=== PATIENT | male | born 1950 | race Caucasian/White ===

== ENCOUNTER → 2018-11-12 | Outpatient (CLI) | payer MEDICARE ==
--- NOTE | 2018-11-14 08:02 | CTL ---
EXAMINATION TYPE: CT Low Dose Lung DATE OF EXAM ORDERED: 11/12/2018 COMPARISON: None HISTORY: . Low Dose CT Lung Screening CT DLP: [address] CTDI: 2.3 mGy IV CONTRAST USED: None. SCREENING VISIT: First visit COMPARISON: None. TECHNIQUE: Low dose computed tomography scan was performed through the chest at 1 millimeter thick se ctions and reconstructed images in the coronal plane at [address] DIAGNOSTIC QUALITY: Satisfactory FINDINGS: LUNG NODULES: Right lung: Subpleural nodule right lower lobe measuring 4.9 mm with an adjacent 3 mm nodule image 19 4. Right upper lobe nodules anteriorly on image 96 measuring 3.4 mm and 2.5 mm respectively. Pulmonar y nodule adjacent to the right upper lobe fibrotic change measuring 4.7 mm image 75. Left lung: Left perihilar nodule measuring 7.8 mm with adjacent focus of calcification image 147. Lef t upper lobe nodule measuring 4.3 mm image 157. Left lower lobe subpleural nodule measuring 3.7 mm 18 8. Left lower lobe pulmonary nodules solid measuring 4.6 mm image 205. Lingular nodule measuring 5.5 mm image 228. Left lower lobe pulmonary nodule measuring 3.8 mm image 244. LUNGS: COPD: Severity: Moderate Fibrosis: Severity: Fibrotic changes noted right upper lobe. Lymph nodes: None Other findings: None RIGHT PLEURAL SPACE: Effusion: None Calcification: None Thickening: None Pneumothorax: None LEFT PLEURAL SPACE: Effusion: None Calcification: None Thickening: None Pneumothorax: None HEART: Heart Size: Mildly enlarged Coronary calcification: Mild Pericardial effusion: None OTHER FINDINGS: Upper abdomen: No significant abnormality Bony thorax: Degenerative changes Supraclavicular region: No significant abnormalityOther: No significant abnormalityI IMPRESSION: 1. Multiple scattered nonspecific pulmonary nodules. COPD with mild right upper lobe fibrotic change. FOLLOW UP CT CHEST RECOMMENDATION: Six-month follow-up LDCT recommended.Smoking cessation recommended. CT LUNG RAD: LUNG RAD CATEGORY 3 probably benign. Short-term follow-up suggested; includes nodules with a low like lihood of becoming a clinically active cancer.
== END | disposition home or self-care (01) ==
LOC: RADCTMAIN 12:59
PROVIDERS: ATTEND Family Medicine
DX: J44.9 Chronic obstructive pulmonary disease, unspecified (principal); J84.10 Pulmonary fibrosis, unspecified; R91.8 Other nonspecific abnormal finding of lung field; Z87.891 Personal history of nicotine dependence

== ENCOUNTER → 2018-11-17 | Day surgery (SDC) | payer MEDICARE ==
[2018-11-15 16:15] VITALS: BMI 22.8
[~2018-11-17] MED LIST: LACTATED RINGERS 1,000 ML IV SCH; PROPOFOL 10 MG/ML 20 ML VIAL IV ONE
[2018-11-17 09:52] VITALS: RESP 18
--- NOTE | 2018-11-17 10:37 | P.PCN ---
Date of Procedure: 11/17/18 Procedure(s) Performed: BRIEF HISTORY: Patient is a 68-year-old pleasant male, scheduled for an elective colonoscopy as a part of evaluation of prior history of colon polyps. Last colonoscopy was 5 years ago. PROCEDURE PERFORMED: Colonoscopy with snare polypectomy. PREOPERATIVE DIAGNOSIS: History Of colon polyps. IV sedation per Anesthesia. PROCEDURE: After informed consent was obtained, the patient, was brought into the endoscopy unit. IV sedation was administered by Anesthesia under continuous monitoring. Digital rectal examination was normal. Initially the Olympus CF-160 flexible video colonoscope was then inserted in the rectum, gradually advanced into the cecum without any difficulty. Careful examination was performed as the scope was gradually being withdrawn. Ileocecal valve and the appendiceal orifice were visualized and appeared normal. Prep was excellent. Mucosa of the cecum, ascending colon, transverse colon, appeared normal. In the descending colon there was a 7-8 mm polyp that was removed by snare polypectomy. Rest of the descending colon, sigmoid colon, and rectum appeared normal. Retroflexion was performed in the rectum and no lesions were seen. The patient tolerated the procedure well. IMPRESSION: 7-8 mm descending colon polyp serous was snare polypectomy Rest of the colon appeared normal RECOMMENDATIONS: Findings of this examination were discussed with the patient as well as his family. He was advised to follow with the biopsy results. He can have a repeat surveillance colonoscopy in 5 years..
[2018-11-17 11:27] VITALS: BP 124/85; PULSE 92
== END ==
LOC: ORWHC2ENDO 08:40
PROVIDERS: ATTEND Internal Medicine Gastroenterology
DX: Z12.11 Encounter for screening for malignant neoplasm of colon (principal); Z86.010 Personal history of colon polyps; D12.4 Benign neoplasm of descending colon; J44.9 Chronic obstructive pulmonary disease, unspecified; E78.5 Hyperlipidemia, unspecified; H40.9 Unspecified glaucoma; Z87.891 Personal history of nicotine dependence; Z79.899 Other long term (current) drug therapy; Z97.2 Presence of dental prosthetic device (complete) (partial)
CPT/HCPCS: 45385; 88305; J2704

== ENCOUNTER → 2019-05-15 | Outpatient (CLI) | payer MEDICARE ==
--- NOTE | 2019-05-15 14:43 | CT ---
EXAMINATION TYPE: CT chest w con DATE OF EXAM: 05/15/2019 COMPARISON: November 12, 2018 HISTORY: Abnormal findings of the lung field CT DLP: 443 mGycm Automated exposure control for dose reduction was used. CONTRAST: CT scan of the chest is performed with IV Contrast, patient injected with 100 mL of Isovue 300. FINDINGS: LUNGS: Stable scattered bilateral pulmonary nodules. No new nodules identified. Approximately 4 5 nod ules are seen within the right lung measuring up to 4.8 mm. Approximately pulmonary nodules are seen within the left lung. Left perihilar nodule seen previously measuring 7.8 mm is not clearly reproduc ed at this time although adjacent calculus is noted. Fibrotic changes right upper lobe redemonstrated . Upper lobe emphysematous changes noted. MEDIASTINUM: There are no greater than 1 cm hilar or mediastinal lymph nodes. No pericardial effusi on is seen. Thoracic aorta is of normal caliber. The heart is not enlarged. UPPER ABDOMEN: No significant abnormality appreciated. OTHER: No additional significant abnormality is seen. IMPRESSION: 1. Scattered pulmonary nodules remain essentially unchanged although a 7.8 mm nodule left hilum is no t reproduced at this time. Follow-up study in one year is advised.
== END | disposition home or self-care (01) ==
LOC: RADCTMAIN 12:26
PROVIDERS: ATTEND Family Medicine
DX: R91.8 Other nonspecific abnormal finding of lung field (principal)
CPT/HCPCS: 82565; 84520; 71260; 36415; Q9967

== ENCOUNTER → 2021-09-30 | Outpatient (CLI) | payer MEDICARE ==
[2021-09-30 14:58] LABS: African American GFR (CKD) >90 (>60 ml/min/1.73 sqM); Blood Urea Nitrogen 20 mg/dL (9-20); Non-African American GFR(CKD) 87 (>60 ml/min/1.73 sqM)
--- NOTE | 2021-09-30 15:45 | CT ---
EXAMINATION TYPE: CT chest w con DATE OF EXAM: 09/30/2021 COMPARISON: 05/15/2019 HISTORY: Solitary pulmonary lung nodule CT DLP: 241.20 mGycm Automated exposure control for dose reduction was used. CONTRAST: CT scan of the chest is performed with IV Contrast, patient injected with 70 mL of Isovue 300. FINDINGS: LUNGS: 3 mm nodule right upper lobe image 2476. Adjacent 2 mm pulmonary nodule noted. Right middle lo be pulmonary nodules measuring 3 mm each image 40 of 76. 2.5 mm pulmonary nodule right lower lobe corie ge 45 of 76. 4 mm nodule along the right major fissure image 48 of 76. Within the left: There is a no dule within the left lower lobe which is subpleural in location measuring 3 mm image 46 of 76. 5 mm p ulmonary nodule left lower lobe image 49. 3 mm pulmonary nodule subpleural location left lower lobe l aterally image 56. Additional 3 mm pulmonary nodule left lower lobe posterior sulcus image 5776. Area of consolidation noted left lower lobe posterior sulcus measuring 2 cm. This could reflect inflammat ory or postinflammatory change. Short-term follow-up in 3 months is advised. Subpleural fibrotic arreola ge right upper lobe is unchanged. Scattered emphysematous changes are redemonstrated. MEDIASTINUM: There are no greater than 1 cm hilar or mediastinal lymph nodes. No pericardial effusi on is seen. Thoracic aorta is of normal caliber. The heart is not enlarged. UPPER ABDOMEN: No significant abnormality appreciated. OTHER: No additional significant abnormality is seen. IMPRESSION: 1. Persistent scattered pulmonary nodules most of which appear stable however there is a new area of nodular consolidation left lower lobe which may reflect an area of infiltrate or postinflammatory altagracia nge however short-term follow-up study in 3 months is advised.
== END | disposition home or self-care (01) ==
LOC: RADCTMAIN 14:06
PROVIDERS: ATTEND Family Medicine
DX: R91.8 Other nonspecific abnormal finding of lung field (principal)
CPT/HCPCS: 82565; 84520; 71260; 36415; Q9967

== ENCOUNTER → 2022-01-02 | Outpatient (CLI) | payer MEDICARE ==
[2022-01-02 09:46] LABS: African American GFR (CKD) >90 (>60 ml/min/1.73 sqM); Blood Urea Nitrogen 24 mg/dL (9-20); Non-African American GFR(CKD) 83 (>60 ml/min/1.73 sqM)
--- NOTE | 2022-01-02 10:24 | CT ---
EXAMINATION TYPE: CT chest w con DATE OF EXAM: 01/02/2022 COMPARISON: 09/30/2021 HISTORY: pulmonary nodule CT DLP: 192.2 mGycm Automated exposure control for dose reduction was used. TECHNIQUE: CT scan of the chest is performed with IV Contrast, patient injected with 100 mL of Isovue 370. MIP Images are created on CT scanner and reviewed. 3D reconstructed images are created on an independent workstation and reviewed. FINDINGS: LUNGS: Nodules: Right upper lobe 3 mm and 2 mm nodule stable. Right middle lobe nodule measuring 3 mm stable. 2.5 mm nodule right lower lobe stable. 4 mm nodule along the right major fissure stable. 3 mm subpleural nodule left lower lobe stable. 5 mm pulmonary nodule left lower lobe stable. 3 mm pulmonary nodule subpleural location left lower lobe laterally stable. 3 mm pulmonary nodule left lower lobe posterior sulcus is stable. Areas of subsegmental consolidation involving both lung bases are stable. No pleural effusion or pneu mothorax. Diffuse emphysematous changes noted. Mild central and basilar bronchiectasis.. Consolidatio n left lower lobe is increased in size measuring 3.2 cm versus 1.9 cm. MEDIASTINUM: There is a 1.4 cm short axis lymph node in the right hilum stable. No pericardial effu taj is seen. Mild atherosclerotic change aorta which is of normal caliber. Mild coronary artery calc ification left anterior descending artery. Small hiatal hernia. OTHER: Atrophic and degenerative changes spine. IMPRESSION: 1. Stable bilateral pulmonary nodules unchanged from prior exam. There is a stable pathologic lymph n ode right hilum measuring 1.4 cm short axis. 2. Persistent area of subsegmental consolidation left lower lobe greater than right appears increased in size measuring 3.2 cm versus 1.9 cm. Recommend PET scan.
== END | disposition home or self-care (01) ==
LOC: RADCTMAIN 09:00
PROVIDERS: ATTEND Family Medicine
DX: R91.8 Other nonspecific abnormal finding of lung field (principal); R06.00 Dyspnea, unspecified
CPT/HCPCS: 82565; 84520; 71260; 36415; Q9967

== ENCOUNTER → 2022-01-23 | Outpatient (CLI) | payer MEDICARE ==
--- NOTE | 2022-01-26 09:35 | PE ---
EXAMINATION TYPE: PET CT fusion skull to thigh DATE OF EXAM: 01/23/2022 CLINICAL INDICATION:Male, 72 years old with history of R91.8 abnormal findings lung field; TECHNIQUE: Following the intravenous administration of 11.0 mCi of F-18 FDG, whole body images are performed from the skull base to the midthigh. Images are reviewed on the computer in the coronal, a xial, and sagittal planes. Reconstructed rotating images are created on independent workstation and reviewed on the computer. A non-contrast CT is performed in conjunction with the PET scan. Glucose level 97 mg/dL COMPARISON: CT CT 01/02/2022, 09/30/2021, 05/15/2019, PET/CT None, FINDINGS: Mediastinal SUV mean is 1.2. Hepatic parenchyma SUV mean is 2.1. SKULL BASE AND NECK: No suspicious FDG activity. CHEST, MEDIASTINUM, AND HILAR REGION: No suspicious FDG activity. Area of concern within the left low er lung is somewhat wedge-shape of consolidation and does not demonstrate increased FDG activity abov e background levels. This area does appear larger than 09/30/2021. ABDOMEN AND PELVIS: No suspicious FDG activity. OSSEOUS STRUCTURES: No suspicious FDG activity. OTHER CT: Atherosclerosis of the arterial vasculature including coronary arteries. A moderate stool b urden throughout the colon. Scattered clonic diverticula. The prostate gland is enlarged measuring up to 4.8 cm. The bladder is nondistended.: IMPRESSION: 1. No suspicious FDG activity. 2. Left lower lobe wedge-shaped consolidation extending towards the pleural surface is minimal FDG a ctivity near background levels. An infectious/inflammatory process and/or atelectasis are favored giv en some opacified airways seen on prior CT chest, correlate for retained secretions and/or aspiration . Attention on follow-up imaging. 3. Scattered subcentimeter pulmonary nodules are below the sensitivity of PET/CT. Continued surveill ance with CT chest is recommended in 3 months.
== END | disposition home or self-care (01) ==
LOC: RADXRMAIN 06:48
PROVIDERS: ATTEND Family Medicine
DX: R91.8 Other nonspecific abnormal finding of lung field (principal)
CPT/HCPCS: 78815; A9552

== ENCOUNTER → 2022-04-23 | Outpatient (CLI) | payer MEDICARE ==
[2022-04-23 16:35] LABS: African American GFR (CKD) >90 (>60 ml/min/1.73 sqM); Blood Urea Nitrogen 12 mg/dL (9-20); Non-African American GFR(CKD) 79 (>60 ml/min/1.73 sqM)
--- NOTE | 2022-04-23 17:28 | CT ---
EXAMINATION TYPE: CT chest w con DATE OF EXAM: 04/23/2022 COMPARISON: Prior chest CT September 30, 2021 and older study May 15, 2019 HISTORY: f/u lung nodule CT DLP: 208.80 mGycm. Automated Exposure Control for Dose Reduction was Utilized. TECHNIQUE: CT scan of the thorax is performed following with IV Contrast, patient injected with 90 m L of Isovue 300. FINDINGS: LUNGS: Moderate underlying emphysematous changes are redemonstrated. Linear scarring anterior right u pper lung is again seen with slight interval progression from prior studies. There are areas of groun dglass opacity and organizing consolidation identified bilaterally there are areas of involvement in the right middle lobe and lingula and in the right lower lobe. Persistent groundglass opacities with reticulation in the posterior left lower lobe shows some improvement in the consolidation seen on arcenio or study. Small scattered nodules are redemonstrated. Largest measures 4 to 5 mm in the periphery of the left lower lobe axial image 44 not significantly changed from most recent CT. Some curvilinear pe ripheral consolidation in the inferior right upper lobe axial image 28 is new from prior study. Areas of reticulonodular increased opacity in the periphery of the right upper and middle lobes new from p rior study. No pleural effusion or pneumothorax is seen. Some peribronchial wall thickening is noted. MEDIASTINUM: There is stable enlarged right suprahilar lymph node axial image 31 and stable slightly prominent subcarinal lymph node axial image 31. No cardiomegaly or pericardial effusion is seen. OTHER: No additional significant abnormality is seen. IMPRESSION: Scattered small nodules inferiorly stable from most recent CT. Moderate emphysematous altagracia nge with new areas of groundglass opacity in and irregular consolidation seen bilaterally. Correlate for worsening atypical infection. Consider other etiologies such as EVALI and cryptogenic organizing pneumonia in the differential.
== END | disposition home or self-care (01) ==
LOC: RADCTMAIN 15:56
PROVIDERS: ATTEND Family Medicine
DX: J43.9 Emphysema, unspecified (principal); R91.8 Other nonspecific abnormal finding of lung field; R93.89 Abnormal findings on diagnostic imaging of other specified body structures
CPT/HCPCS: 82565; 84520; 71260; 36415; Q9967

== ENCOUNTER → 2022-11-13 | Outpatient (CLI) | payer MEDICARE ==
[2022-11-13 14:43] LABS: African American GFR (CKD) >90 (>60 ml/min/1.73 sqM); Blood Urea Nitrogen 9 mg/dL (9-20); Non-African American GFR(CKD) 86 (>60 ml/min/1.73 sqM)
--- NOTE | 2022-11-17 08:42 | CT ---
EXAMINATION TYPE: CT chest w con DATE OF EXAM: 11/13/2022 COMPARISON: 04/23/2022 HISTORY: lung nodule CT DLP: 389 mGycm Automated exposure control for dose reduction was used. CONTRAST: CT scan of the chest is performed with IV Contrast, patient injected with 100 mL of Isovue 300. FINDINGS: LUNGS: Stable 5 mm pulmonary nodule right upper lobe anteriorly image 23 sequence 4. Stable 3 mm pulm onary nodule left lower lobe image 51 and additional 3 mm pulmonary nodule left lower lobe image 52 s equence 4. Both are unchanged. Additional left lower lobe 5 mm pulmonary nodule image 44. Pleural-bas ed 5 mm pulmonary nodule left lower lobe image 40. Redemonstrated is moderate underlying emphysematou s change. Scattered areas of groundglass and more organized consolidation seen. Infiltrate seen previ ously right lower lobe posteriorly as improved in the interval. No significant progression is appreci ated. MEDIASTINUM: There are no greater than 1 cm hilar or mediastinal lymph nodes. No pericardial effusi on is seen. Thoracic aorta is of normal caliber. The heart is not enlarged. UPPER ABDOMEN: No significant abnormality appreciated. OTHER: No additional significant abnormality is seen. IMPRESSION: 1. Stable scattered pulmonary nodules. No new nodules seen. 2. Again noted are scattered groundglass and irregular consolidation bilaterally with areas of improv ement noted. Correlate for sequela of atypical infection or active atypical infection.
== END | disposition home or self-care (01) ==
LOC: RADCTMAIN 14:00
PROVIDERS: ATTEND Internal Medicine
DX: R91.8 Other nonspecific abnormal finding of lung field (principal)
CPT/HCPCS: 82565; 84520; 71260; 36415; Q9967

== ENCOUNTER 2022-11-17 10:34 | Emergency (ER) | payer MEDICARE ==
[2022-11-17 10:41] VITALS: TEMP 98.3
[2022-11-17 11:33] LABS: Basophils % (A) 0 %; Eosinophils # (A) 0.2 k/uL (0-0.7); Eosinophils % (A) 2 %; HCT 45.9 % (39.0-53.0); HGB 15.3 gm/dL (13.0-17.5); Lymphocytes # (A) 1.6 k/uL (1.0-4.8); Lymphocytes % (A) 14 %; MCH 28.6 pg (25.0-35.0); MCHC 33.3 g/dL (31.0-37.0); MCV 85.7 fL (80.0-100.0); Mean Platelet Volume 7.6; Monocytes # (A) 0.8 k/uL (0-1.0); Monocytes % (A) 7 %; Neutrophils # (A) 8.7 k/uL (1.3-7.7); Neutrophils % (A) 76 %; Platelet Count 267 k/uL (150-450); RBC 5.35 m/uL (4.30-5.90); RDW 13.4 % (11.5-15.5); WBC 11.4 k/uL (3.8-10.6)
[2022-11-17 11:42] LABS: Partial Thromboplastin Time 27.3 sec (22.0-30.0); Prothrombin Time 10.6 sec (9.0-12.0)
[2022-11-17 11:48] LABS: ALT 12 U/L (4-49); AST 19 U/L (17-59); African American GFR (CKD) >90 (>60 ml/min/1.73 sqM); Albumin 3.9 g/dL (3.5-5.0); Alkaline Phosphatase 119 U/L (38-126); Anion Gap 10 mmol/L; Blood Urea Nitrogen 10 mg/dL (9-20); Calcium 9.2 mg/dL (8.4-10.2); Carbon Dioxide 25 mmol/L (22-30); Chloride 105 mmol/L (98-107); Glucose 91 mg/dL (74-99); Magnesium 2.2 mg/dL (1.6-2.3); Non-African American GFR(CKD) 83 (>60 ml/min/1.73 sqM); Sodium 140 mmol/L (137-145); Total Bilirubin 0.8 mg/dL (0.2-1.3); Total Protein 7.4 g/dL (6.3-8.2)
[2022-11-17] MEDS ORDERED: IPRATROPIUM-ALBUTEROL 3 ML NEB INHALATION STA (11:49)
--- NOTE | 2022-11-17 11:50 | XR ---
EXAMINATION TYPE: XR chest 2V DATE OF EXAM: 11/17/2022 COMPARISON: 06/01/2022 TECHNIQUE: PA and lateral views submitted. HISTORY: Shortness of breath FINDINGS: Underlying emphysematous changes seen with areas of scattered atelectasis or scarring. Heart size nor mal with no overt failure, pleural effusion or pneumothorax. Irregular density in the right upper lob e measures about 2.7 cm. Hypertrophic and degenerative changes of the spine. Scattered subcentimeter nodules. IMPRESSION: 1. COPD with scattered nodules. Abdomen reported by recent CT scan. Somewhat irregular area of consol idation right upper lobe is noted. Could be on the basis of infiltrate. Correlate clinically to exclu de underlying neoplasm.
--- NOTE | 2022-11-17 11:54 | ED ---
SOB HPI - General Chief Complaint: Chest Pain Stated Complaint: SOB Time Seen by Provider: 11/17/22 11:31 Source: patient, RN notes reviewed Mode of arrival: ambulatory Limitations: no limitations - History of Present Illness Initial Comments: This is a 72-year-old male who presents to the emergency department for chest pain and shortness of breath. States that over the last 2 days, he's been having persistent coughing that started out as productive, and is now dry. States that whenever he coughs, he develops pain in the right side of the chest. The pain is described as sharp. States that it is not there when he is not coughing. He is also noticing increasing shortness of breath. He does take Advair daily due to a hx of asthma and has been using albuterol breathing treatments at home with no relief in symptoms. States that this feels similar to the last time that he had pneumonia. Denies any fevers, chills, sore throat, palpitations, abdominal pain, nausea, vomiting, diarrhea, back pain, or headaches. MD Complaint: shortness of breath, cough, chest pain Onset/Timin -: days(s) - Related Data Home Medications Medication Instructions Recorded Confirmed Latanoprost/Pf [Latanoprost 0.005% 1 drop BOTH EYES HS 11/15/18 11/17/22 Eye Drop] Simvastatin [Zocor] 20 mg PO HS 11/15/18 11/17/22 Albuterol Inhaler [Ventolin Hfa 1 - 2 puff INHALATION RT-Q6H PRN 11/17/22 11/17/22 Inhaler] Albuterol Nebulized [Ventolin 2.5 mg INHALATION RT-QID PRN 11/17/22 11/17/22 Nebulized] Brimonidine Tartrate [Alphagan P 1 drop BOTH EYES TID 11/17/22 11/17/22 0.2% Ophth Soln] Dorzolamide-Timol 2.23%/0.68% 1 drop BOTH EYES BID 11/17/22 11/17/22 [Cosopt] Fluticasone Propion/Salmeterol 1 puff INHALATION RT-BID 11/17/22 11/17/22 [Fluticasone-Salmeterol 500-50] Omeprazole 20 mg PO DAILY PRN 11/17/22 11/17/22 Previous Rx's Medication Instructions Recorded Azithromycin [Zithromax] 250 mg PO DIRECTED 5 Days #6 tab 11/17/22 Benzonatate [Tessalon Perles] 100 mg PO TID PRN #20 capsule 11/17/22 predniSONE 50 mg PO DAILY 5 Days #5 tab 11/17/22 Allergies Allergy/AdvReac Type Severity Reaction Status Date / Time No Known Allergies Allergy Verified 11/17/22 12:42 Review of Systems ROS Statement: Those systems with pertinent positive or pertinent negative responses have been documented in the HPI. ROS Other: All systems not noted in ROS Statement are negative. Past Medical History Past Medical History: Asthma Additional Past Medical History / Comment(s): Glaucoma History of Any Multi-Drug Resistant Organisms: None Reported Past Surgical History: No Surgical Hx Reported Past Psychological History: No Psychological Hx Reported Smoking Status: Former smoker Past Alcohol Use History: None Reported Past Drug Use History: None Reported General Exam Limitations: no limitations General appearance: alert, in no apparent distress Head exam: Present: atraumatic, normocephalic, normal inspection Respiratory exam: Present: decreased breath sounds, prolonged expiratory Cardiovascular Exam: Present: regular rate, normal rhythm, normal heart sounds. Absent: systolic murmur, diastolic murmur, rubs, gallop, clicks Neurological exam: Present: alert, oriented X3, CN II-XII intact Psychiatric exam: Present: normal affect, normal mood Skin exam: Present: warm, dry, intact, normal color. Absent: rash Course Vital Signs 11/17/22 11/17/22 11/17/22 10:38 12:03 12:11 Temperature 98.3 F Pulse Rate 101 H 100 100 Respiratory 22 Rate Blood Pressure 148/88 O2 Sat by Pulse 97 Oximetry 11/17/22 13:06 Temperature Pulse Rate 98 Respiratory 18 Rate Blood Pressure 158/78 O2 Sat by Pulse 97 Oximetry Medical Decision Making - Medical Decision Making This is a 72-year-old male who presents to the emergency department for chest pain and shortness of breath. Was pt. sent in by a medical professional or institution? @ -No Did you speak to anyone other than the patient for history? @ -No Did you review nursing and triage notes? @ -Yes, and I agree, it is accurate with regards to the patient's symptoms. Were old charts reviewed? @ -No Differential Diagnosis? @ -Differential Dyspnea: Coronary syndrome, arrhythmia, tamponade, asthma, COPD, pulmonary embolism, pneumonia, pneumothorax, pulmonary effusion, anaphylaxis, diabetic ketoacidosis, flailed chest, pulmonary contusion, diaphragmatic rupture, anemia, neuromuscular, this is not meant to be an all-inclusive list. EKG interpreted by me (3pts min.)? @ -EKG interpreted by me demonstrating the following: Sinus rhythm. Ventricular rate 83 beats per minute, NM interval 175 ms, QRS duration 83 ms, QTC 375 ms. X-rays interpreted by me (1pt min.)? @ -Chest x-ray obtained. My interpretation identifies a right upper lobe consolidation. CT interpreted by me (1pt min.)? @ -Not obtained U/S interpreted by me (1pt. min.)? @ -Not obtained What testing was considered but not performed? (CT, X-rays, U/S, labs)? Why? @ -None What meds were considered but not given? Why? @ -None Did you discuss the management of the patient with other professionals? @ -No Did you reconcile home meds? @ -No Was smoking cessation discussed for >3mins.? @ -No Was critical care preformed (if so, how long)? @ -No Were there social determinants of health that impacted care today? How? (Homelessness, low income, unemployed, alcoholism, drug addiction, transportation, low edu. Level, literacy, decrease access to med. care, residential, rehab)? @ -No Was there de-escalation of care discussed even if they declined? (Discuss DNR or withdrawal of care, Hospice)? @ -No What co-morbidities impacted this encounter? (DM, HTN, Smoking, COPD, CAD, Cancer, CVA, Hep., AIDS, mental health diagnosis, sleep apnea, morbid obesity)? @ -Asthma Was patient admitted / discharged? @ -Discharged. Lab work obtained revealing mild leukocytosis. Chest x-ray reveals a somewhat irregular area of consolidation in the right upper lobe. Radiology advised that this may be related to an infiltrate, however neoplasm c annot be excluded. Findings reviewed with the patient. We'll plan to treat the patient for a pneumonia. Prescription for azithromycin and prednisone provided with dosing instructions reviewed. Advised he continue with his inhaler and breathing treatments as well. He is also advised to follow up with his PCP on the suspicious x-ray findings. Undiagnosed new problem with uncertain prognosis? @ -None Drug Therapy requiring intensive monitoring for toxicity (Heparin, Nitro, Insulin, Cardizem)? @ -None Were any procedures done? @ -None Diagnosis/symptom? @ -Pneumonia Acute, or Chronic, or Acute on Chronic? @ -Acute Uncomplicated (without systemic symptoms) or Complicated (systemic symptoms)? @ -Uncomplicated Side effects of treatment? @ -None Exacerbation, Progression, or Severe Exacerbation] @ -Not applicable Poses a threat to life or bodily function? @ -No Return precautions reviewed in depth, the patient is instructed to return to the emergency department with any new, worsening, or concerning symptoms. Patient verbalized understanding. This case was discussed in detail with the attending ED physician, Dr. Ribeiro. Presentation, findings, and treatment plan discussed in detail as well. - Lab Data Result diagrams: 11/17/22 11:08 11/17/22 11:08 Lab Results 11/17/22 11/17/22 11/17/22 Range/Units 11:08 11:08 11:08 WBC 11.4 H (3.8-10.6) k/uL RBC 5.35 (4.30-5.90) m/uL Hgb 15.3 (13.0-17.5) gm/dL Hct 45.9 (39.0-53.0) % MCV 85.7 (80.0-100.0) fL MCH 28.6 (25.0-35.0) pg MCHC 33.3 (31.0-37.0) g/dL RDW 13.4 (11.5-15.5) % Plt Count 267 (150-450) k/uL MPV 7.6 Neutrophils % 76 % Lymphocytes % 14 % Monocytes % 7 % Eosinophils % 2 % Basophils % 0 % Neutrophils # 8.7 H (1.3-7.7) k/uL Lymphocytes # 1.6 (1.0-4.8) k/uL Monocytes # 0.8 (0-1.0) k/uL Eosinophils # 0.2 (0-0.7) k/uL Basophils # 0.0 (0-0.2) k/uL PT 10.6 (9.0-12.0) sec INR 1.0 (<1.2) APTT 27.3 (22.0-30.0) sec D-Dimer (<0.60) mg/L FEU Sodium 140 (137-145) mmol/L Potassium 4.0 (3.5-5.1) mmol/L Chloride 105 (98-107) mmol/L Carbon Dioxide 25 (22-30) mmol/L Anion Gap 10 mmol/L BUN 10 (9-20) mg/dL Creatinine 0.93 (0.66-1.25) mg/dL Est GFR (CKD-EPI)AfAm >90 (>60 ml/min/1.73 sqM) Est GFR (CKD-EPI)NonAf 83 (>60 ml/min/1.73 sqM) Glucose 91 (74-99) mg/dL Calcium 9.2 (8.4-10.2) mg/dL Magnesium 2.2 (1.6-2.3) mg/dL Total Bilirubin 0.8 (0.2-1.3) mg/dL AST 19 (17-59) U/L ALT 12 (4-49) U/L Alkaline Phosphatase 119 (38-126) U/L Troponin I (0.000-0.034) ng/mL Total Protein 7.4 (6.3-8.2) g/dL Albumin 3.9 (3.5-5.0) g/dL 11/17/22 11/17/22 Range/Units 11:08 11:08 WBC (3.8-10.6) k/uL RBC (4.30-5.90) m/uL Hgb (13.0-17.5) gm/dL Hct (39.0-53.0) % MCV (80.0-100.0) fL MCH (25.0-35.0) pg MCHC (31.0-37.0) g/dL RDW (11.5-15.5) % Plt Count (150-450) k/uL MPV Neutrophils % % Lymphocytes % % Monocytes % % Eosinophils % % Basophils % % Neutrophils # (1.3-7.7) k/uL Lymphocytes # (1.0-4.8) k/uL Monocytes # (0-1.0) k/uL Eosinophils # (0-0.7) k/uL Basophils # (0-0.2) k/uL PT (9.0-12.0) sec INR (<1.2) APTT (22.0-30.0) sec D-Dimer 0.56 (<0.60) mg/L FEU Sodium (137-145) mmol/L Potassium (3.5-5.1) mmol/L Chloride (98-107) mmol/L Carbon Dioxide (22-30) mmol/L Anion Gap mmol/L BUN (9-20) mg/dL Creatinine (0.66-1.25) mg/dL Est GFR (CKD-EPI)AfAm (>60 ml/min/1.73 sqM) Est GFR (CKD-EPI)NonAf (>60 ml/min/1.73 sqM) Glucose (74-99) mg/dL Calcium (8.4-10.2) mg/dL Magnesium (1.6-2.3) mg/dL Total Bilirubin (0.2-1.3) mg/dL AST (17-59) U/L ALT (4-49) U/L Alkaline Phosphatase (38-126) U/L Troponin I <0.012 (0.000-0.034) ng/mL Total Protein (6.3-8.2) g/dL Albumin (3.5-5.0) g/dL - Radiology Data Radiology results: report reviewed, image reviewed Disposition Clinical Impression: Pneumonia, Shortness of breath Disposition: HOME SELF-CARE Instructions (If sedation given, give patient instructions): Pneumonia (ED) Additional Instructions: Return to the emergency department with any new, worsening, or concerning symptoms. Take the antibiotic as prescribed for 5 days. Take the prednisone daily for 5 days as well. You can take the cough medication up to 3 times d aily. Continue to use your inhaler and breathing treatments at home. Follow up with your primary care provider in 1-2 days. Prescriptions: predniSONE 50 mg PO DAILY 5 Days #5 tab Benzonatate [Tessalon Perles] 100 mg PO TID PRN #20 capsule PRN Reason: Cough Azithromycin [Zithromax] 250 mg PO DIRECTED 5 Days #6 tab Is patient prescribed a controlled substance at d/c from ED?: No Referrals: Maryann Randolph MD [Primary Care Provider] - 1-2 days
[2022-11-17 13:08] VITALS: BP 158/78; PULSE 98; RESP 18
== END 2022-11-17 13:10 | disposition home or self-care (01) ==
LOC: EC 10:34
DX: J18.9 Pneumonia, unspecified organism (principal); R06.02 Shortness of breath; J45.909 Unspecified asthma, uncomplicated; Z87.891 Personal history of nicotine dependence; Z79.51 Long term (current) use of inhaled steroids
CPT/HCPCS: 36415; 71046; 80053; 83735; 84484; 85025; 85379; 85610; 85730; 93005; 94640; 99285

== ENCOUNTER → 2022-11-26 | Outpatient (CLI) | payer MEDICARE ==
--- NOTE | 2022-11-26 13:20 | US ---
EXAMINATION TYPE: US arterial LE single level DATE OF EXAM: 11/26/2022 1:01 PM CLINICAL INDICATION: Male, 72 years old with history of Z87.891 PERSONAL HISTORY OF NICOTINE DEPENDE I73.9; Patient states his physician felt diminished pedal pulses History of: Smoker: Previous Hypertension: No Diabetic: No Hyperlipidemia: Yes TIA/CVA: No Previous Vascular Surgery: No NC: No Doppler Waveforms: Right: Multiphasic Left: Multiphasic Right Brachial Pressure: 121 Left Brachial Pressure: 113 Ankle-Brachial Indices: Right: 1.08 Left: 1.07 Toe Brachial Indices: Right: 0.74 Left: 0.81 IMPRESSION: 1. Normal JAMAAL and TBI indices.
== END | disposition home or self-care (01) ==
LOC: RADUSWWP 12:26
PROVIDERS: ATTEND Family Medicine
DX: I73.9 Peripheral vascular disease, unspecified (principal); E78.5 Hyperlipidemia, unspecified; Z87.891 Personal history of nicotine dependence
CPT/HCPCS: 93922

== ENCOUNTER → 2023-11-04 | Outpatient (CLI) | payer MEDICARE | END | disposition home or self-care (01) | LOC: LABPRL 09:30 | PROVIDERS: ATTEND Family Medicine | DX: Z00.00 Encounter for general adult medical examination without abnormal findings (principal); E78.00 Pure hypercholesterolemia, unspecified | CPT/HCPCS: 80053; 80061; 83036; 84443; 85025 ==

== ENCOUNTER → 2023-12-10 | Outpatient (CLI) | payer MEDICARE ==
[2023-12-10 13:13] LABS: African American GFR (CKD) >90 (>60 ml/min/1.73 sqM); Blood Urea Nitrogen 15 mg/dL (9-20); Non-African American GFR(CKD) 78 (>60 ml/min/1.73 sqM)
--- NOTE | 2023-12-10 14:14 | CT ---
EXAMINATION TYPE: CT chest w con DATE OF EXAM: 12/10/2023 COMPARISON: 06/01/2023 HISTORY: lung nodule CT DLP: 161.8 mGycm Automated exposure control for dose reduction was used. TECHNIQUE: CT scan of the chest is performed with IV Contrast, patient injected with 100 mL of Isovue 300. MIP Images are created on CT scanner and reviewed. 3D reconstructed images are created on an independent workstation and reviewed. FINDINGS: There are marked emphysematous changes. There is been significant interval increase in scattered interstitial densities and ill-defined nodul ar densities/masses in both lungs. The dominant new masses are 14 mm mass in the right upper lobe, a 19 mm mass like density in the right lower lobe and increasing scattered nodularity in the left lung. The findings are highly Suspicious for malignancy in further evaluation is warranted There is no pleural effusion or pneumothorax. The great vessels chest are normal. There is interval development of a 2.2 cm right hilar lymph node. There are a few scattered borderline enlarged mediastinal lymph nodes. There are no axillary lymph n odes. Limited scanning through the upper abdomen reveal no gross abnormality. No focal osseous lesions are seen. IMPRESSION: Interval development of scattered interstitial densities and masslike densities in both lungs as desc ribed above with development of a large right hilar lymph node and mild mediastinal lymphadenopathy. The findings are highly suspicious for malignancy and further evaluation is warranted.
== END | disposition home or self-care (01) ==
LOC: RADCTMAIN 12:06
PROVIDERS: ATTEND Internal Medicine
DX: R91.8 Other nonspecific abnormal finding of lung field
CPT/HCPCS: 71260; 82565; 84520

== ENCOUNTER → 2023-12-24 | Outpatient (CLI) | payer MEDICARE ==
--- NOTE | 2023-12-25 02:01 | PE ---
EXAMINATION TYPE: PET CT fusion skull to thigh DATE OF EXAM: 12/24/2023 CLINICAL INDICATION:Male, 73 years old with history of R91.1 SPN; TECHNIQUE: Following the intravenous administration of 12.96 mCi of F-18 FDG, whole body images are performed from the skull base to the midthigh. Images are reviewed on the computer in the coronal, axial, and sagittal planes. Reconstructed rotating images are created on independent workstation and reviewed on the computer. A non-contrast CT is performed in conjunction with the PET scan. Glucose level 92 mg/dL CT DLP: 253.79 mGycm, Automated exposure control for dose reduction was used. COMPARISON: CT 12/10/2023, 06/01/2023, 11/13/2022, 04/23/2022, PET/CT 01/23/2022, MRI: None FINDINGS: Mediastinal SUV mean is 1.9. Hepatic parenchyma SUV mean is 2.4. SKULL BASE AND NECK: No suspicious FDG activity. CHEST, MEDIASTINUM, AND HILAR REGION: Redemonstration of scattered interstitial reticular densities throughout the lungs. Additional nodula r opacities in the periphery of both lungs identified with some new from prior exam. Examples include : Peripheral left upper lobe 1.3 cm nodular opacity with a maximum SUV of 9.5. Right lateral midlung 1.7 cm nodular opacity with a maximum SUV of 8.0. Lateral right lower lobe 1.4 cm nodular opacity with maximum SUV of 8.1. Medial anterior right middle lobe pleural-based 3.2 cm opacity with a maximum SUV of 11.4. Additional pulmonary nodules are too small for PET/CT sensitivity. Precarinal 9 mm short axis lymph node with a maximum SUV of 4.3. Subcarinal lymph node measuring 1 cm short axis the maximum SUV of 4.0. Left pulmonary hilar lymph nodes with a maximum SUV of 6.3. Right perihilar lymph nodes with a maximum SUV of 4.0. ABDOMEN AND PELVIS: No suspicious FDG activity. OSSEOUS STRUCTURES: No suspicious FDG activity. OTHER CT: Moderate centrilobular emphysematous changes. Atherosclerosis of the arterial vasculature i ncluding coronary arteries. Scattered colonic diverticula. The prostate gland is prominent measuring up to 4.7 cm. The urinary bladder is nondistended. IMPRESSION: 1. Redemonstration of scattered reticular opacities throughout the lungs with pulmonary nodular/mass like opacities. A few are new from prior examination including a 3.2 cm masslike opacity within the m edial aspect of the right middle lobe anteriorly from recent CT 12/10/2023. These nodular opacities ar e FDG avid. These are indeterminant with etiologies including metastasis versus infectious/inflammato ry process. 2. Development of mildly FDG avid mediastinal and bilateral hilar lymph nodes. Etiologies include me tastasis versus reactive to #1. [facility], , 12/25/2023 1:59 AM
== END | disposition home or self-care (01) ==
LOC: RADPETMAIN 12:23
PROVIDERS: ATTEND Family Medicine
DX: R91.1 Solitary pulmonary nodule
CPT/HCPCS: 78815

== ENCOUNTER 2024-01-11 18:00 | Inpatient (IN) | payer MEDICARE ==
--- NOTE | 2024-01-11 18:42 | ED ---
General Adult HPI - General Chief complaint: Shortness of Breath Stated complaint: SOB Time Seen by Provider: 01/11/24 18:05 Source: patient, RN notes reviewed, old records reviewed Mode of arrival: ambulatory Limitations: no limitations - History of Present Illness Initial comments: This is a 74-year-old male who presents to the emergency department stating that he has been coughing and having pleuritic chest pain for over a month. Patient states he has had a CAT scan that showed infection as well as nodules that have gotten worse over the last few years. Patient states he then had a PET scan was inconclusive. Patient's post to get a bronchoscopy but that was postponed to next week so the patient decided to come to the emergency department today because he wants to be admitted and his fire prevention chief told him to come in to be admitted he states his pain and difficulty breathing is not worse than it has been but it is constant. Patient also states his cough and coughing up sputum is present. Denies any fever chills - Related Data Home Medications Medication Instructions Recorded Confirmed Latanoprost/Pf [Latanoprost 0.005% 1 drop BOTH EYES HS 11/15/18 01/11/24 Eye Drop] Simvastatin [Zocor] 20 mg PO HS 11/15/18 01/11/24 Albuterol Nebulized [Ventolin 2.5 mg INHALATION RT-QID PRN 11/17/22 01/11/24 Nebulized] Brimonidine Tartrate [Alphagan P 1 drop BOTH EYES TID 11/17/22 01/11/24 0.2% Ophth Soln] Dorzolamide-Timol 2.23%/0.68% 1 drop BOTH EYES BID 11/17/22 01/11/24 [Cosopt] Fluticasone Propion/Salmeterol 1 puff INHALATION RT-BID 11/17/22 01/11/24 [Fluticasone-Salmeterol 500-50] Omeprazole 20 mg PO DAILY 11/17/22 01/11/24 Apixaban [Eliquis] 5 mg PO BID 01/10/24 01/11/24 Metoprolol Succinate (ER) [Toprol 25 mg PO DAILY 01/10/24 01/11/24 Xl] Allergies Allergy/AdvReac Type Severity Reaction Status Date / Time No Known Allergies Allergy Verified 01/11/24 18:40 Review of Systems ROS Statement: Those systems with pertinent positive or pertinent negative responses have been documented in the HPI. ROS Other: All systems not noted in ROS Statement are negative. Past Medical History Past Medical History: Atrial Fibrillation, Asthma, Cancer, COPD, Eye Disorder, Hearing Disorder / Deafness, Hyperlipidemia, Hypertension, Respiratory Disorder Additional Past Medical History / Comment(s): right eye glaucoma, uses sadi hearing aids, squamous cell skin ca History of Any Multi-Drug Resistant Organisms: None Reported Past Surgical History: Tonsillectomy Additional Past Surgical History / Comment(s): squamous cell skin ca removed left forearm about one month ago; colonoscopy Past Anesthesia/Blood Transfusion Reactions: No Reported Reaction, Family History of Problems w/ Anesthesia Additional Past Anesthesia/Blood Transfusion Reaction / Comment(s): sister went into cardiac arrest after anesthesia for watchman procedure Past Psychological History: No Psychological Hx Reported Smoking Status: Former smoker General Exam - General Exam Comments Initial Comments: GENERAL: Patient is well-developed and well-nourished. Patient is nontoxic and well- hydrated and is in no acute distress. ENT: Neck is soft and supple. No significant lymphadenopathy is noted. Oropharynx is clear. Moist mucous membranes. Neck has full range of motion without eliciting any pain. EYES: The sclera were anicteric and conjunctiva were pink and moist. Extraocular movements were intact and pupils were equal round and reactive to light. Eyelids were unremarkable. PULMONARY: Patient has diminished breath sounds patient has pleuritic chest pain with deep breathing CARDIOVASCULAR: There is a regular rate and rhythm without any murmurs gallops or rubs. ABDOMEN: Soft and nontender with normal bowel sounds. SKIN: Skin is clear with no lesions or rashes and otherwise unremarkable. NEUROLOGIC: Patient is alert and oriented x3. Cranial nerves II through XII are grossly intact. Motor and sensory are also intact. Normal speech, volume and content. Symmetrical smile. MUSCULOSKELETAL: Normal extremities with adequate strength and full range of motion. LYMPHATICS: No significant lymphadenopathy is noted PSYCHIATRIC: Normal psychiatric evaluation. Limitations: no limitations Course Vital Signs 01/11/24 01/11/24 01/11/24 18:01 18:15 19:11 Temperature 98.0 F Pulse Rate 88 79 Respiratory 22 20 18 Rate Blood Pressure 110/71 102/65 O2 Sat by Pulse 95 96 Oximetry Medical Decision Making - Medical Decision Making EKG is interpreted by myself. EKG shows a sinus rhythm at 74 bpm AK interval is 182 QRS is 84 QT interval 366 QTc is 394. Patient's EKG shows no ST segment elevation or depression Was pt. sent in by a medical professional or institution (JESSICA Willard, MIDDLE SCHOOL FOOTBALL COACH, urgent care, hospital, or long term...) When possible be specific @ -No Did you speak to anyone other than the patient for history (EMS, parent, family, police, friend...)? What history was obtained from this source @ -No Did you review nursing and triage notes (agree or disagree)? Why? @ -I reviewed and agree with nursing and triage notes Were old charts reviewed (outside hosp., previous admission, EMS record, old EKG, old radiological studies, urgent care reports/EKG's, long term records)? Report findings @ -No old charts were reviewed Differential Diagnosis? @ -Differential Dyspnea: Coronary syndrome, arrhythmia, tamponade, asthma, COPD, pulmonary embolism, pneumonia, pneumothorax, pulmonary effusion, anaphylaxis, diabetic ketoacidosis, flailed chest, pulmonary contusion, diaphragmatic rupture, anemia, neuromuscular, this is not meant to be an all-inclusive list. EKG interpreted by me (3pts min.). @ -As above X-rays interpreted by me (1pt min.). @ -Chest x-ray shows scattered opacifications which are unchanged from previous chest x-ray CT interpreted by me (1pt min.). @ -None done U/S interpreted by me (1pt. min.). @ -None done What testing was considered but not performed or refused? (CT, X-rays, U/S, labs)? Why? @ -None What meds were considered but not given or refused? Why? @ -None Did you discuss the management of the patient with other professionals (professionals i.e. JESSICA Willard, [employer] SCHO[employer] FOOTBALL COACH, lab, RT, psych nurse, high school social science teacher, convertible sofa bedspring tester, teacher, electrical engineering drafting officer, pillowcase turner)? Give summary @ -I spoke with Dr. London he agreed to admit the patient. Was smoking cessation discussed for >3mins.? @ -No Was critical care preformed (if so, how long)? @ -No Were there social determinants of health that impacted care today? How? (Homelessness, low income, unemployed, alcoholism, drug addiction, transportation, low edu. Level, literacy, decrease access to med. care, alf, rehab)? @ -No Was there de-escalation of care discussed even if they declined (Discuss DNR or withdrawal of care, Hospice)? DNR status @ -No What co-morbidities impacted this encounter? (DM, HTN, Smoking, COPD, CAD, Cancer, CVA, ARF, Chemo, Hep., AIDS, mental health diagnosis, sleep apnea, morbid obesity)? @ -None Was patient admitted / discharged? Hospital course, mention meds given and route, prescriptions, significant lab abnormalities, going to OR and other pertinent info. @ -Was given 2 g of Rocephin and patient will be admitted to Dr. London and Dr. Lawler will be consulted Undiagnosed new problem with uncertain prognosis? @ -No Drug Therapy requiring intensive monitoring for toxicity (Heparin, Nitro, Insulin, Cardizem)? @ -No Were any procedures done? @ -No Diagnosis/symptom? @ -Dyspnea Acute, or Chronic, or Acute on Chronic? @ -Acute on chronic Uncomplicated (without systemic symptoms) or Complicated (systemic symptoms)? @ -Complicated Side effects of treatment? @ -No Exacerbation, Progression, or Severe Exacerbation? @ -No Poses a threat to life or bodily function? How? (Chest pain, USA, CA, pneumonia, PE, COPD, DKA, ARF, appy, cholecystitis, CVA, Diverticulitis, Homicidal, Suic idal, threat to staff... and all critical care pts) @ -This this can lead to hypoxia and endorgan dysfunction - Lab Data Result diagrams: 01/11/24 18:31 01/11/24 18:31 Lab Results 01/11/24 01/11/24 01/11/24 Range/Units 18:31 18:31 18:31 WBC 9.6 (3.8-10.6) k/uL RBC 5.41 (4.30-5.90) m/uL Hgb 14.2 (13.0-17.5) gm/dL Hct 44.2 (39.0-53.0) % MCV 81.7 (80.0-100.0) fL MCH 26.2 (25.0-35.0) pg MCHC 32.0 (31.0-37.0) g/dL RDW 14.2 (11.5-15.5) % Plt Count 367 (150-450) k/uL MPV 7.6 Neutrophils % 74 % Lymphocytes % 16 % Monocytes % 6 % Eosinophils % 3 % Basophils % 0 % Neutrophils # 7.1 (1.3-7.7) k/uL Lymphocytes # 1.5 (1.0-4.8) k/uL Monocytes # 0.6 (0-1.0) k/uL Eosinophils # 0.2 (0-0.7) k/uL Basophils # 0.0 (0-0.2) k/uL PT 11.5 (10.0-12.5) sec INR 1.1 (<1.2) APTT 27.6 (22.0-30.0) sec D-Dimer 0.51 (<0.60) mg/L FEU Sodium 138 (137-145) mmol/L Potassium 4.4 (3.5-5.1) mmol/L Chloride 104 (98-107) mmol/L Carbon Dioxide 25 (22-30) mmol/L Anion Gap 9 mmol/L BUN 8 L (9-20) mg/dL Creatinine 0.73 (0.66-1.25) mg/dL Est GFR (CKD-EPI)AfAm >90 (>60 ml/min/1.73 sqM) Est GFR (CKD-EPI)NonAf >90 (>60 ml/min/1.73 sqM) Glucose 117 H (74-99) mg/dL Plasma Lactic Acid Ramu (0.7-2.0) mmol/L Calcium 9.7 (8.4-10.2) mg/dL Magnesium 2.3 (1.6-2.3) mg/dL Total Bilirubin 0.8 (0.2-1.3) mg/dL AST 24 (17-59) U/L ALT 20 (4-49) U/L Alkaline Phosphatase 110 (38-126) U/L Troponin I (0.000-0.034) ng/mL Total Protein 8.8 H (6.3-8.2) g/dL Albumin 4.1 (3.5-5.0) g/dL Influenza Type A (PCR) (Not Detectd) Influenza Type B (PCR) (Not Detectd) RSV (PCR) (Not Detectd) SARS-CoV-2 (PCR) (Not Detectd) 01/11/24 01/11/24 01/11/24 Range/Units 18:31 18:31 18:47 WBC (3.8-10.6) k/uL RBC (4.30-5.90) m/uL Hgb (13.0-17.5) gm/dL Hct (39.0-53.0) % MCV (80.0-100.0) fL MCH (25.0-35.0) pg MCHC (31.0-37.0) g/dL RDW (11.5-15.5) % Plt Count (150-450) k/uL MPV Neutrophils % % Lymphocytes % % Monocytes % % Eosinophils % % Basophils % % Neutrophils # (1.3-7.7) k/uL Lymphocytes # (1.0-4.8) k/uL Monocytes # (0-1.0) k/uL Eosinophils # (0-0.7) k/uL Basophils # (0-0.2) k/uL PT (10.0-12.5) sec INR (<1.2) APTT (22.0-30.0) sec D-Dimer (<0.60) mg/L FEU Sodium (137-145) mmol/L Potassium (3.5-5.1) mmol/L Chloride (98-107) mmol/L Carbon Dioxide (22-30) mmol/L Anion Gap mmol/L BUN (9-20) mg/dL Creatinine (0.66-1.25) mg/dL Est GFR (CKD-EPI)AfAm (>60 ml/min/1.73 sqM) Est GFR (CKD-EPI)NonAf (>60 ml/min/1.73 sqM) Glucose (74-99) mg/dL Plasma Lactic Acid Ramu 1.8 (0.7-2.0) mmol/L Calcium (8.4-10.2) mg/dL Magnesium (1.6-2.3) mg/dL Total Bilirubin (0.2-1.3) mg/dL AST (17-59) U/L ALT (4-49) U/L Alkaline Phosphatase (38-126) U/L Troponin I <0.012 (0.000-0.034) ng/mL Total Protein (6.3-8.2) g/dL Albumin (3.5-5.0) g/dL Influenza Type A (PCR) Not Detected (Not Detectd) Influenza Type B (PCR) Not Detected (Not Detectd) RSV (PCR) Not Detected (Not Detectd) SARS-CoV-2 (PCR) Not Detected (Not Detectd) Disposition Clinical Impression: Dyspnea Disposition: ADMITTED IP TO THIS HOSP Referrals: Maryann Randolph MD [Primary Care Provider] - 1-2 days Time of Disposition: 20:20
[2024-01-11] MEDS: SODIUM CHLORIDE 0.9% 500 ML 500 ML IV STA (18:52)
[2024-01-11 18:53] LABS: Basophils % (A) 0 %; Eosinophils # (A) 0.2 k/uL (0-0.7); Eosinophils % (A) 3 %; HCT 44.2 % (39.0-53.0); HGB 14.2 gm/dL (13.0-17.5); Lymphocytes # (A) 1.5 k/uL (1.0-4.8); Lymphocytes % (A) 16 %; MCH 26.2 pg (25.0-35.0); MCV 81.7 fL (80.0-100.0); Mean Platelet Volume 7.6; Monocytes # (A) 0.6 k/uL (0-1.0); Monocytes % (A) 6 %; Neutrophils # (A) 7.1 k/uL (1.3-7.7); Neutrophils % (A) 74 %; Platelet Count 367 k/uL (150-450); RBC 5.41 m/uL (4.30-5.90); RDW 14.2 % (11.5-15.5); WBC 9.6 k/uL (3.8-10.6)
[2024-01-11] MEDS: cefTRIAXone IN SWFI 1,000 MG/10 ML SYRINGE IVP STA (18:54)
[2024-01-11 18:58] LABS: ALT 20 U/L (4-49); African American GFR (CKD) >90 (>60 ml/min/1.73 sqM); Albumin 4.1 g/dL (3.5-5.0); Anion Gap 9 mmol/L; Blood Urea Nitrogen 8 mg/dL (9-20); Calcium 9.7 mg/dL (8.4-10.2); Carbon Dioxide 25 mmol/L (22-30); Chloride 104 mmol/L (98-107); Glucose 117 mg/dL (74-99); Non-African American GFR(CKD) >90 (>60 ml/min/1.73 sqM); Sodium 138 mmol/L (137-145); Total Bilirubin 0.8 mg/dL (0.2-1.3); Total Protein 8.8 g/dL (6.3-8.2)
[2024-01-11] MEDS: KETOROLAC 15 MG/ML 1 ML VIAL IVP STA (19:00)
[2024-01-11 19:17] LABS: AST 24 U/L (17-59); Potassium 4.4 mmol/L (3.5-5.1)
[2024-01-11 19:18] LABS: Alkaline Phosphatase 110 U/L (38-126); Magnesium 2.3 mg/dL (1.6-2.3)
[2024-01-11 19:30] LABS: INR 1.1 (<1.2); Partial Thromboplastin Time 27.6 sec (22.0-30.0); Prothrombin Time 11.5 sec (10.0-12.5)
--- NOTE | 2024-01-11 19:33 | XR ---
EXAMINATION TYPE: XR chest 2V DATE OF EXAM: 01/11/2024 7:04 PM CLINICAL INDICATION: Male, 74 years old with history of difficulty breathing; [facility] COMPARISON: Chest radiographs from 11/17/2022, 12/24/2023. TECHNIQUE: XR chest 2V Frontal view of the chest. FINDINGS: Lungs/Pleura: Scattered nodular densities throughout the lungs as seen on 12/24/2023 Prominent interstitial lung markings are seen scattered throughout the lungs. No evidence of focal co nsolidation, pneumothorax or pleural effusion. Pulmonary vascularity: Unremarkable. Heart/mediastinum: Cardiomediastinal silhouette is unremarkable. Musculoskeletal: No acute osseous pathology. Other findings: None IMPRESSION: Scattered airspace opacities and nodular changes with increased interstitial lung markings throughout the lungs similar to 12/24/2023 when given differences in technique. Process. No significant change f rom prior. [facility], , 01/11/2024 7:30 PM
[2024-01-11] MEDS ORDERED: PNEUMONIA PROTOCOL UTILIZED 1 EACH MISC PO PRN (20:21)
[2024-01-11] MEDS: AZITHROMYCIN 500 MG in SODIUM CHLORIDE 0.9% 250 ML IVPB STA (20:31)
[2024-01-12] MEDS ORDERED: IPRATROPIUM-ALBUTEROL 3 ML NEB INHALATION PRN (08:04)
--- NOTE | 2024-01-12 08:04 | XR ---
EXAMINATION TYPE: XR chest 2V DATE OF EXAM: 01/12/2024 COMPARISON: 01/11/2024 TECHNIQUE: PA and lateral views submitted. HISTORY: Pneumonia FINDINGS: Irregular density right upper lobe is improved. Persistent nodular density in the right apex and a va thuy densities in the lateral margin of the left upper lobe. Underlying COPD. Coarsened interstitium s uggestive of pulmonary fibrosis. Degenerative changes of the spine and arthropathy of the shoulders. IMPRESSION: 1. Bilateral areas of nodular density with most marked in the right upper lobe. It could represent an underlying neoplasm correlate clinically. Infiltrate not excluded. [facility], , 01/12/2024 8:02 AM
--- NOTE | 2024-01-12 08:19 | P.CNPUL ---
History of Present Illness Consult date: 01/12/24 Requesting physician: Alber Potts Reason for consult: other (Lung masses/nodules) Chief complaint: Pleuritic chest pain, cough History of present illness: Patient is a 74-year-old male with past medical history significant for severe COPD with an FEV1 32% of predicted, lung nodules, significant family history of lung cancer, former tobacco smoker with significant smoking history, and recent unexplained weight loss of 20 pounds. Patient states that over the last month or so he has had left-sided chest pain that is pleuritic in nature. Worse with coughing and deep breathing. He has had a persistent congested cough with a copious amount of green to yellow sputum over the last month or so. No hemoptysis. He does take Eliquis outpatient basis, which has been on hold since last . He is also had associated night sweats. No objective fevers recorded. He has known lung nodules that he follows with Dr. Ma on an outpatient basis. Recently, had a chest CT, in follow-up, showing significant enlargement in the nodules with scattered interstitial densities bilaterally. A PET scan done 12/24/2023 demonstrating scattered bilateral nodular densities including a 3.2 cm mass in the anterior right middle lobe with an SUV 11.4. Remaining nodules including right lower lobe 1.4 cm nodular opacity, right lateral midlung 1.7 nodular opacity, and peripheral left upper lobe 1.3 cm nodular opacity all FDG avid with standard uptake values ranging from 8-10. Scattered reticular opacities bilaterally. There is some associated FDG avid mediastinal and bilateral hilar lymph nodes. Possible reactive versus metastasis. Patient states that over the last 4 to 5 months he is lost approximately 20 pounds without trying. He does have a significant smoking history, but did quit smoking in 2005. His twin sister, brother, and mother all of lung cancer. 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 This was removed by delivery recruiter recently. Denies any recent travel. Did live in [place] and [place] for some time in the 80s. No diagnosed autoimmune diseases. CBC: Unremarkable, no leukocytosis. D-dimer low. CMP: Sodium 138, potassium 4.4, chloride 104, serum bicarb 25, BUN 8, creatinine 0.73, glucose 117. Lactic 1.8. LFTs unremarkable. Troponin 0.012. Patient was started on empiric antibiotics in the emergency department. Afebrile. Currently sitting up in bed. He has a congested cough and is bronchospastic. On room air. SpO2 94%. Remaining vitals are stable. Review of Systems Constitutional: Reports fatigue, Reports night sweats, Reports weight loss, Denies chills, Denies fever Ears, nose, mouth and throat: Denies headache, Denies nasal congestion, Denies nasal discharge, Denies post-nasal drip, Denies sinus pain, Denies sinus pressure, Denies sore throat Cardiovascular: Denies leg edema, Denies orthopnea, Denies palpitations, Denies paroxysmal nocturnal dyspnea, Denies syncope Respiratory: Reports as per HPI Gastrointestinal: Denies abdominal pain, Denies change in bowel habits, Denies nausea, Denies vomiting Genitourinary: Denies dysuria Musculoskeletal: Denies limitation of motion Integumentary: Denies rash Neurological: Denies balance difficulties, Denies confusion, Denies headaches, Denies hearing difficulties, Denies seizures, Denies syncope, Denies visual changes Psychiatric: Denies anxiety, Denies depression Past Medical History Past Medical History: Atrial Fibrillation, Asthma, Cancer, COPD, Eye Disorder, Hearing Disorder / Deafness, Hyperlipidemia, Hypertension, Respiratory Disorder Additional Past Medical History / Comment(s): right eye glaucoma, uses sadi hearing aids, squamous cell skin ca History of Any Multi-Drug Resistant Organisms: None Reported Past Surgical History: Tonsillectomy Additional Past Surgical History / Comment(s): squamous cell skin ca removed left forearm about one month ago; colonoscopy Past Anesthesia/Blood Transfusion Reactions: No Reported Reaction, Family History of Problems w/ Anesthesia Additional Past Anesthesia/Blood Transfusion Reaction / Comment(s): sister went into cardiac arrest after anesthesia for watchman procedure Past Psychological History: No Psychological Hx Reported Smoking Status: Former smoker Past Alcohol Use History: None Reported Additional Past Alcohol Use History / Comment(s): quit smoking in 2005- smoked between 1 1/2 to 2ppd for about 40 yrs Past Drug Use History: None Reported Medications and Allergies Home Medications Medication Instructions Recorded Confirmed Type Latanoprost/Pf [Latanoprost 0.005% 1 drop BOTH EYES HS 11/15/18 01/11/24 History Eye Drop] Simvastatin [Zocor] 20 mg PO HS 11/15/18 01/11/24 History Albuterol Nebulized [Ventolin 2.5 mg INHALATION RT-QID PRN 11/17/22 01/11/24 History Nebulized] Brimonidine Tartrate [Alphagan P 1 drop BOTH EYES TID 11/17/22 01/11/24 History 0.2% Ophth Soln] Dorzolamide-Timol 2.23%/0.68% 1 drop BOTH EYES BID 11/17/22 01/11/24 History [Cosopt] Fluticasone Propion/Salmeterol 1 puff INHALATION RT-BID 11/17/22 01/11/24 History [Fluticasone-Salmeterol 500-50] Omeprazole 20 mg PO DAILY 11/17/22 01/11/24 History Apixaban [Eliquis] 5 mg PO BID 01/10/24 01/11/24 History Metoprolol Succinate (ER) [Toprol 25 mg PO DAILY 01/10/24 01/11/24 History Xl] Allergies Allergy/AdvReac Type Severity Reaction Status Date / Time No Known Allergies Allergy Verified 01/11/24 18:40 Physical Exam Vitals: Vital Signs Temp Pulse Pulse Resp BP BP Pulse Ox 01/12/24 07:03 98.4 F 82 18 120/69 94 L 01/12/24 01:53 98 F 71 16 119/70 95 01/11/24 21:49 97.7 F 67 16 119/70 95 01/11/24 21:43 67 16 01/11/24 21:37 97.3 F L 69 16 107/66 97 01/11/24 21:10 72 14 107/66 96 01/11/24 19:11 79 18 102/65 96 01/11/24 18:15 20 01/11/24 18:01 98.0 F 88 22 110/71 95 Intake and Output 01/11/24 01/12/24 01/12/24 22:59 06:59 14:59 Other: Voiding Method Toilet # Voids 3 Weight 54.431 kg GENERAL EXAM: Alert, 74-year-old frail appearing male, on room air. Comfortable in no apparent distress. HEAD: Normocephalic and atraumatic EYES: Normal reaction of pupils, equal size. NOSE: Clear with pink turbinates. THROAT: No erythema or exudates. NECK: No masses, no JVD. CHEST: No chest wall deformity. LUNGS: Equal air entry with coarse rhonchi. Congested cough. Bronchospastic. No conversational dyspnea or accessory muscle use.. CVS: S1 and S2 normal with no audible murmur, regular rhythm. No extra heart sounds ABDOMEN: No hepatosplenomegaly, active bowel sounds, no guarding or rigidity. SPINE: No scoliosis or deformity SKIN: No rashes CENTRAL NERVOUS SYSTEM: No focal deficits, tone is normal in all 4 extremities. EXTREMITIES: There is no peripheral edema, clubbing, or cyanosis. Peripheral pulses are intact. Results - Laboratory Findings CBC and BMP: 01/11/24 18:31 01/11/24 18:31 PT/INR, D-dimer PT 11.5 sec (10.0-12.5) 01/11/24 18: INR 1.1 (<1.2) 01/11/24 18: D-Dimer 0.51 mg/L FEU (<0.60) 01/11/24 18:31 Abnormal lab findings: Abnormal Labs 01/11/24 18:31 BUN 8 L Glucose 117 H Total Protein 8.8 H - Diagnostic Findings Chest x-ray: image reviewed Assessment and Plan Assessment: Scattered bilateral pulmonary nodules/masses, recently noted to be enlarging and some new, PET scan done 12/24/2023 demonstrating scattered enlarging bilateral nodular densities including a 3.2 cm mass in the anterior right middle lobe with an SUV 11.4. Remaining pulmonary nodules including right lower lobe 1.4 cm nodular opacity, right lateral midlung 1.7 nodular opacity, and peripheral left upper lobe 1.3 cm nodular opacity all FDG avid with standard uptake values ranging from 8-10. Scattered reticular opacities bilaterally. There is some associated FDG avid mediastinal and bilateral hilar lymph nodes. Possible reactive versus metastasis. Severe COPD, with an FEV1 32% of predicted Significant family history of lung cancer Unexplained weight loss, 20 pounds over the last 4 to 5 months Former tobacco smoker, quit in 2005, with significant smoking history and over [id number] history History of hyperlipidemia History of hypertension History of paroxysmal atrial fibrillation, anticoagulated on Eliquis, this has been on hold since last History of localized squamous cell skin cancer, removed by delivery recruiter Plan: Patient's medications, labs, imaging reviewed Patient will need to undergo bronchoscopy, this will be discussed with Dr. Lawler later this morning. [place] is on hold, actually has been on hold since Started on empiric antibiotics in the emergency department Maintenance COPD medications resumed Further recommendations to follow. I have personally seen and examined the patient, performed the documentation and the assessment and plan as written. Number of minutes spent on the visit:20 01/12/2024, the patient is being seen in a joint evaluation along with nurse practitioner. The patient is 74 with COPD with a baseline FEV1 of 32% of predicted. He is having cough, significant congestion, yellowish sputum production and for that reason he was hospitalized. He remains on room air oxygen. Chest x-ray was done and showed bilateral areas of nodular densities more so in the right upper lobe. I also reviewed the previous CAT scan images that were done this patient over the past 3 years at least. Note that going back to 2019, the CAT scan showed similar findings of nonspecific pulmonary nodularity that have progressed in addition to some nonspecific mediastinal lymphadenopathy. Initial PET/CT that was done on 01/23/2022 showed no suspicious FDG activity and the scattered subcentimeter pulmonary nodules were thought to be below PET/CT sensitivity. However, subsequent CAT scan imaging was done on this patient especially the 1 that was done on 12/10/2023 showed interval development of scattered reticular densities and masslike nodules in both lungs along with some development of the right hilar and mild mediastinal lymphadenopathy. Based on that, a PET/CT was done that showed no areas that were metabolically active. There was also mild FDG activity within the mediastinal and bilateral hilar areas. Noted the patient has no significant leukocytosis. Electrolytes are all within normal limits. Viral screen has been negative. Legionella urine antigen has been negative. No travel history. No active smoking. No other environmental exposures. Patient is currently on Rocephin and Zithromax and this will be continued. Will proceed with a sputum Gram stain and culture. Would likely benefit from a bronchoscopy endobronchial lavage to essentially rule out infection. He does have significant constitutional symptoms. Atypical mycobacterial infection of the lung cannot be completely excluded. Malignancy is felt to be less likely. Time with Patient: Greater than 30
[2024-01-12 11:01] VITALS: BMI 18.2
[2024-01-12] MEDS: IPRATROPIUM-ALBUTEROL 3 ML NEB INHALATION SCH (11:49)
--- NOTE | 2024-01-12 12:22 | P.HPIM ---
History of Present Illness H&P Date: 01/12/24 This is 74-year-old male patient of Dr. Randolph who presented with complaints of increased dyspnea and shortness of breath that increased over the past few weeks but has been occurring over the past multiple months. Patient has been followed regularly by pulmonary services for follow-up in regards to lung nodules. Patient reports he had outpatient PET scan and was planning on getting bronchoscopy but had to reschedule. Patient also reports a 20 pound weight loss over the past few months. Additional medical history includes ex-smoker, atrial fibrillation in which his Eliquis has been on hold due to tentative plans for bronchoscopy, COPD, hyperlipidemia, hypertension and skin cancer. Chest x-ray completed showing bilateral areas of nodule density with most marked in the right upper lobe could represent an underlying neoplasm. At this time patient will be admitted patient started on IV antibiotics of Rocephin and Zithromax. Pulmonary services have consult been consulted. Sputum culture ordered. At this time patient is still complaining of increased pain and cough. Patient denies nausea vomiting or diarrhea. Patient denies any urinary burning or frequency. Lab work revealing no significant abnormalities D-dimer negative. Influenza RSV and COVID-19 negative. Current vital signs temp 98.4, heart rate 71, respiratory rate 16, blood pressure 119/70 with a pulse ox of 95% on room air Review of Systems Please refer to HPI otherwise unremarkable Past Medical History Past Medical History: Atrial Fibrillation, Asthma, Cancer, COPD, Eye Disorder, Hearing Disorder / Deafness, Hyperlipidemia, Hypertension, Respiratory Disorder Additional Past Medical History / Comment(s): right eye glaucoma, uses sadi hearing aids, squamous cell skin ca History of Any Multi-Drug Resistant Organisms: None Reported Past Surgical History: Tonsillectomy Additional Past Surgical History / Comment(s): squamous cell skin ca removed left forearm about one month ago; colonoscopy Past Anesthesia/Blood Transfusion Reactions: No Reported Reaction, Family History of Problems w/ Anesthesia Additional Past Anesthesia/Blood Transfusion Reaction / Comment(s): sister went into cardiac arrest after anesthesia for watchman procedure Past Psychological History: No Psychological Hx Reported Smoking Status: Former smoker Past Alcohol Use History: None Reported Additional Past Alcohol Use History / Comment(s): quit smoking in 2005- smoked between 1 1/2 to 2ppd for about 40 yrs Past Drug Use History: None Reported Medications and Allergies Home Medications Medication Instructions Recorded Confirmed Type Latanoprost/Pf [Latanoprost 0.005% 1 drop BOTH EYES HS 11/15/18 01/11/24 History Eye Drop] Simvastatin [Zocor] 20 mg PO HS 11/15/18 01/11/24 History Albuterol Nebulized [Ventolin 2.5 mg INHALATION RT-QID PRN 11/17/22 01/11/24 History Nebulized] Brimonidine Tartrate [Alphagan P 1 drop BOTH EYES TID 11/17/22 01/11/24 History 0.2% Ophth Soln] Dorzolamide-Timol 2.23%/0.68% 1 drop BOTH EYES BID 11/17/22 01/11/24 History [Cosopt] Fluticasone Propion/Salmeterol 1 puff INHALATION RT-BID 11/17/22 01/11/24 History [Fluticasone-Salmeterol 500-50] Omeprazole 20 mg PO DAILY 11/17/22 01/11/24 History Apixaban [Eliquis] 5 mg PO BID 01/10/24 01/11/24 History Metoprolol Succinate (ER) [Toprol 25 mg PO DAILY 01/10/24 01/11/24 History Xl] Allergies Allergy/AdvReac Type Severity Reaction Status Date / Time No Known Allergies Allergy Verified 01/11/24 18:40 Physical Exam Vitals: Vital Signs Temp Pulse Pulse Resp BP BP Pulse Ox 01/12/24 11:59 75 01/12/24 11:51 72 01/12/24 08:00 16 01/12/24 07:03 98.4 F 82 18 120/69 94 L 01/12/24 01:53 98 F 71 16 119/70 95 01/11/24 21:49 97.7 F 67 16 119/70 95 01/11/24 21:43 67 16 01/11/24 21:37 97.3 F L 69 16 107/66 97 01/11/24 21:10 72 14 107/66 96 01/11/24 19:11 79 18 102/65 96 01/11/24 18:15 20 01/11/24 18:01 98.0 F 88 22 110/71 95 Intake and Output 01/11/24 01/12/24 01/12/24 22:59 06:59 14:59 Other: Voiding Method Toilet Toilet # Voids 3 Weight 54.431 kg 54.431 kg Head normocephalic Neck supple Lungs coarse rhonchi bilateral, cough Heart regular rate and rhythm S1-S2, no rub or gallop Abdomen is soft nontender nondistended positive bowel sounds no h epatosplenomegaly Extremities no edema Neuro alert and orientated to 3 Results CBC & Chem 7: 01/11/24 18:31 01/11/24 18:31 Labs: Abnormal Lab Results - Last 24 Hours (Table) 01/11/24 Range/Units 18:31 BUN 8 L (9-20) mg/dL Glucose 117 H (74-99) mg/dL Total Protein 8.8 H (6.3-8.2) g/dL Thrombosis Risk Factor Assmnt - Choose All That Apply Any of the Below Risk Factors Present?: No Other Risk Factors: Yes Each Risk Factor Represents 2 Points: Age 61-74 years Other congenital or acquired thrombophilia - If yes, enter type in comment: No Thrombosis Risk Factor Assessment Total Risk Factor Score: 2 Thrombosis Risk Factor Assessment Level: Low Risk Assessment and Plan Assessment: 1. Increased dyspnea and cough 2. Scattered bilateral pulmonary nodules. Patient has been followed outpatient with pulmonary services PET scan done on 12/24/2023 demonstrating scattered enlarging bilateral nodule densities. Tentative plans for bronchoscopy 3. History of COPD 4. Recent weight loss 20 pounds over the past 4 to 5 months 5. Ex-smoker 6. History of hyperlipidemia 7. History of essential hypertension 8. History of paroxysmal atrial fibrillation. Eliquis currently on hold with tentative plans for bronchoscopy 9. History of skin cancer DVT prophylaxis SCDs Eliquis currently on hold per pulmonary recommendation. GI prophylaxis Pepcid AM labs ordered Pulmonary services following Patient maintained on IV antibiotics Time with Patient: Greater than 30 (Greater than 60% of the total time spent in counseling and coordination of care)
[2024-01-12] MEDS: AZITHROMYCIN 500 MG TAB PO SCH (18:14)
[2024-01-12] MEDS: BRIMONIDINE TARTRATE 0.2% DROPS 5 ML BTL BOTH EYES SCH (18:15)
[2024-01-12] MEDS: SYMBICORT 160-4.5 MCG INHALER INHALATION SCH (19:38)
[2024-01-12] MEDS ORDERED: SYMBICORT 160-4.5 MCG INHALER INHALATION SCH (20:00)
[2024-01-12] MEDS: ATORVASTATIN 10 MG TAB PO SCH (20:43)
[2024-01-12] MEDS: DORZOLAMIDE-TIMOLOL 2.23%/0.68 10ML BTL BOTH EYES SCH (20:44)
[2024-01-12] MEDS: LATANOPROST 0.005% OPHTH DROPS 2.5 ML BTL BOTH EYES SCH (20:44)
[2024-01-13 08:41] LABS: Basophils # (A) 0.05 X 10*3/uL (0.00-0.10); Basophils % (A) 0.5 %; Eosinophils # (A) 0.24 X 10*3/uL (0.04-0.35); Eosinophils % (A) 2.6 %; HCT 39.3 % (39.6-50.0); HGB 12.2 g/dL (13.0-17.0); Lymphocytes % (A) 19.4 %; MCH 25.8 pg (27.0-32.0); MCV 83.3 FL (80.0-97.0); Mean Platelet Volume 9.7 FL (9.5-12.2); Monocytes # (A) 0.71 X 10*3/uL (0.20-1.00); Monocytes % (A) 7.7 %; NRBC Per 100 WBC 0 X 10*3/uL (0.00-0.01); Neutrophils # (A) 6.44 X 10*3/uL (1.80-7.70); Neutrophils % (A) 69.5 %; Platelet Count 313 X 10*3/uL (140-440); RBC 4.72 X 10*6/uL (4.40-5.60); RDW 14.3 % (11.5-14.5); WBC 9.27 X 10*3/uL (4.50-10.00)
[2024-01-13 09:04] LABS: ALT 9 U/L (10-49); AST 12 U/L (14-35); Albumin 2.9 g/dL (3.8-4.9); Albumin/Globulin Ratio 0.85 Ratio (1.60-3.17); Alkaline Phosphatase 103 U/L (41-126); BUN/Creat Ratio 10.14 Ratio (12.00-20.00); Blood Urea Nitrogen 7.1 mg/dL (9.0-27.0); Calcium 8.7 mg/dL (8.7-10.3); Carbon Dioxide 23.5 mmol/L (21.6-31.8); Chloride 108 mmol/L (96-109); Globulin 3.4 g/dL (1.6-3.3); Glucose 100 mg/dL (70-110); Potassium 4.3 mmol/L (3.5-5.5); Sodium 141 mmol/L (135-145); Total Bilirubin <0.2 mg/dL (0.3-1.2); Total Protein 6.3 g/dL (6.2-8.2)
[2024-01-13] MEDS: PANTOPRAZOLE 40 MG TABLET PO SCH (10:21)
[2024-01-13] MEDS: METOPROLOL SUCCINATE (ER) 25 MG TAB.ER.24H PO SCH (10:26)
[2024-01-13] MEDS ORDERED: PROPOFOL 10 MG/ML 20 ML VIAL IV ONE (16:26)
[2024-01-13] MEDS ORDERED: LIDOCAINE 1% INJ 10MG/ML (20 ML MDV) ONE (16:26)
[2024-01-13] MEDS ORDERED: MIDAZOLAM 2 MG/2 ML VIAL ONE (16:26)
[2024-01-13] MEDS: IV FLUID CONTINUATION 1,000 ML IV ONE (17:00)
--- NOTE | 2024-01-13 17:39 | P.PN ---
Subjective Progress Note Date: 01/13/24 This is 74-year-old male patient of Dr. Randolph who presented with complaints of increased dyspnea and shortness of breath that increased over the past few weeks but has been occurring over the past multiple months. Patient has been followed regularly by pulmonary services for follow-up in regards to lung nodules. Patient reports he had outpatient PET scan and was planning on getting bronchoscopy but had to reschedule. Patient also reports a 20 pound weight loss over the past few months. Additional medical history includes ex-smoker, atrial fibrillation in which his Eliquis has been on hold due to tentative plans for bronchoscopy, COPD, hyperlipidemia, hypertension and skin cancer. Chest x-ray completed showing bilateral areas of nodule density with most marked in the right upper lobe could represent an underlying neoplasm. At this time patient will be admitted patient started on IV antibiotics of Rocephin and Zithromax. Pulmonary services have consult been consulted. Sputum culture ordered. At this time patient is still complaining of increased pain and cough. Patient denies nausea vomiting or diarrhea. Patient denies any urinary burning or frequency. Lab work revealing no significant abnormalities D-dimer negative. Influenza RSV and COVID-19 negative. Current vital signs temp 98.4, heart rate 71, respiratory rate 16, blood pressure 119/70 with a pulse ox of 95% on room air On 01/13/2024 patient was seen and examined on the medical floor he is alert and oriented x 3 in no apparent distress, he is still complaining of shortness of breath especially with activity and occasional cough otherwise he denies any complaints there is no fever or chills no headache or dizziness no chest pain no nausea or vomiting no abdominal pain no diarrhea no blood in the stools no burning with urination no frequency or urgency and no hematuria. Patient is scheduled for bronchoscopy today will continue to follow closely. Objective - Vital Signs Vital signs: Vital Signs Temp 97.7 F 01/13/24 13:33 Pulse 79 01/13/24 15:25 Resp 16 01/13/24 13:33 BP 107/68 01/13/24 13:33 Pulse Ox 96 01/13/24 13:33 FiO2 Intake & Output 01/12/24 01/13/24 01/13/24 18:59 06:59 18:59 Intake Total 590 400 Balance 590 400 Weight 54.431 kg Intake: IV 400 Oral 590 Other: Voiding Method Toilet Toilet Toilet # Voids 1 2 - Exam Head normocephalic Neck supple Lungs coarse rhonchi bilateral, cough Heart regular rate and rhythm S1-S2, no rub or gallop Abdomen is soft nontender nondistended positive bowel sounds no hepato splenomegaly Extremities no edema Neuro alert and orientated to 3 - Labs CBC & Chem 7: 01/13/24 05:56 01/13/24 05:56 Labs: Abnormal Lab Results - Last 24 Hours (Table) 01/13/24 01/13/24 Range/Units 05:56 05:56 Hgb 12.2 L (13.0-17.0) g/dL Hct 39.3 L (39.6-50.0) % MCH 25.8 L (27.0-32.0) pg MCHC 31.0 L (32.0-37.0) g/dL BUN 7.1 L (9.0-27.0) mg/dL BUN/Creatinine Ratio 10.14 L (12.00-20.00) Ratio Total Bilirubin <0.2 L (0.3-1.2) mg/dL AST 12 L (14-35) U/L ALT 9 L (10-49) U/L Albumin 2.9 L (3.8-4.9) g/dL Globulin 3.4 H (1.6-3.3) g/dL Albumin/Globulin Ratio 0.85 L (1.60-3.17) Ratio Microbiology - Last 24 Hours (Table) 01/11/24 21:00 Gram Stain - Preliminary Sputum Sputum Culture - Preliminary 01/11/24 18:47 Blood Culture - Preliminary Blood Assessment and Plan Assessment: 1. Increased dyspnea and cough 2. Scattered bilateral pulmonary nodules. Patient has been followed outpatient with pulmonary services PET scan done on 12/24/2023 demonstrating scattered enlarging bilateral nodule densities. Tentative plans for bronchoscopy 3. History of COPD 4. Recent weight loss 20 pounds over the past 4 to 5 months 5. Ex-smoker 6. History of hyperlipidemia 7. History of essential hypertension 8. History of paroxysmal atrial fibrillation. Eliquis currently on hold with tentative plans for bronchoscopy 9. History of skin cancer DVT prophylaxis SCDs Eliquis currently on hold per pulmonary recommendation. GI prophylaxis Pepcid AM labs ordered Pulmonary services following Patient maintained on IV antibiotics
[2024-01-13] MEDS: methylPREDNISolone SOD SUCCI 125 MG/2 ML VIAL IV STA (18:03)
--- NOTE | 2024-01-13 19:53 | P.PN ---
Subjective Progress Note Date: 01/13/24 Patient is a 74-year-old male with past medical history significant for severe COPD with an FEV1 32% of predicted, lung nodules, significant family history of lung cancer, former tobacco smoker with significant smoking history, and recent unexplained weight loss of 20 pounds. Patient states that over the last month or so he has had left-sided chest pain that is pleuritic in nature. Worse with coughing and deep breathing. He has had a persistent congested cough with a copious amount of green to yellow sputum over the last month or so. No hemoptysis. He does take Eliquis outpatient basis, which has been on hold since last . He is also had associated night sweats. No objective fevers recorded. He has known lung nodules that he follows with Dr. Ma on an outpatient basis. Recently, had a chest CT, in follow-up, showing significant enlargement in the nodules with scattered interstitial densities bilaterally. A PET scan done 12/24/2023 demonstrating scattered bilateral nodular densities including a 3.2 cm mass in the anterior right middle lobe with an SUV 11.4. Remaining nodules including right lower lobe 1.4 cm nodular opacity, right lateral midlung 1.7 nodular opacity, and peripheral left upper lobe 1.3 cm nodular opacity all FDG avid with standard uptake values ranging from 8-10. Scattered reticular opacities bilaterally. There is some associated FDG avid mediastinal and bilateral hilar lymph nodes. Possible reactive versus metastasis. Patient states that over the last 4 to 5 months he is lost approximately 20 pounds without trying. He does have a significant smoking history, but did quit smoking in 2005. His twin sister, brother, and mother all of lung cancer. 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 This was removed by [facility] registered nurse recently. Denies any recent travel. Did live in [place] and [place] for some time in the 80s. No diagnosed autoimmune diseases. CBC: Unremarkable, no leukocytosis. D-dimer low. CMP: Sodium 138, potassium 4.4, chloride 104, serum bicarb 25, BUN 8, creatinine 0.73, glucose 117. Lactic 1.8. LFTs unremarkable. Troponin 0.012. Patient was started on empiric antibiotics in the emergency department. Afebrile. Currently sitting up in bed. He has a congested cough and is bronchospastic. On room air. SpO2 94%. Remaining vitals are stable. On 01/13/2024 the patient is being seen for a follow-up. Clinically unchanged compared to yesterday with copious amount of respiratory secretions and he continues to complain of congested chest and cough and mucus production. Afebrile. White cell count at 9 with a hemoglobin 12.2 and a platelet count of 313. Electrolytes are all within normal limits. Viral screen has been negative. Legionella urine antigen is negative. LFTs are normal. The plan is to do a bronchoscopy and therapeutic airway suctioning and bronchial lavage today. Pulse ox 96% room air oxygen. The sputum sample has been collected has not shown any microbial growth. Objective - Vital Signs Vital signs: Vital Signs Temp 97.3 F L 01/13/24 17:23 Pulse 75 01/13/24 18:08 Resp 18 01/13/24 18:08 BP 102/60 01/13/24 18:08 Pulse Ox 96 01/13/24 18:08 FiO2 Intake & Output 01/13/24 01/13/24 01/14/24 06:59 18:59 06:59 Intake Total 590 475 Balance 590 475 Weight 54.431 kg Intake: IV 475 Oral 590 Other: Voiding Method Toilet Toilet # Voids 2 1 - Exam GENERAL EXAM: Alert, 74-year-old frail appearing male, on room air. Comfortable in no apparent distress. HEAD: Normocephalic and atraumatic EYES: Normal reaction of pupils, equal size. NOSE: Clear with pink turbinates. THROAT: No erythema or exudates. NECK: No masses, no JVD. CHEST: No chest wall deformity. LUNGS: Equal air entry with coarse rhonchi. Congested cough. Bronchospastic. No conversational dyspnea or accessory muscle use.. CVS: S1 and S2 normal with no audible murmur, regular rhythm. No extra heart sounds ABDOMEN: No hepatosplenomegaly, active bowel sounds, no guarding or rigidity. SPINE: No scoliosis or deformity SKIN: No rashes CENTRAL NERVOUS SYSTEM: No focal deficits, tone is normal in all 4 extremities. EXTREMITIES: There is no peripheral edema, clubbing, or cyanosis. Peripheral pulses are intact. - Labs CBC & Chem 7: 01/13/24 05:56 10/17/24 05:56 Labs: Abnormal Lab Results - Last 24 Hours (Table) 01/13/24 01/13/24 Range/Units 05:56 05:56 Hgb 12.2 L (13.0-17.0) g/dL Hct 39.3 L (39.6-50.0) % MCH 25.8 L (27.0-32.0) pg MCHC 31.0 L (32.0-37.0) g/dL BUN 7.1 L (9.0-27.0) mg/dL BUN/Creatinine Ratio 10.14 L (12.00-20.00) Ratio Total Bilirubin <0.2 L (0.3-1.2) mg/dL AST 12 L (14-35) U/L ALT 9 L (10-49) U/L Albumin 2.9 L (3.8-4.9) g/dL Globulin 3.4 H (1.6-3.3) g/dL Albumin/Globulin Ratio 0.85 L (1.60-3.17) Ratio Microbiology - Last 24 Hours (Table) 01/11/24 21:00 Gram Stain - Preliminary Sputum Sputum Culture - Preliminary 01/11/24 18:47 Blood Culture - Preliminary Blood Assessment and Plan Assessment: Scattered bilateral pulmonary nodules/masses, recently noted to be enlarging and some new, PET scan done 12/24/2023 demonstrating scattered enlarging bilateral nodular densities including a 3.2 cm mass in the anterior right middle lobe with an SUV 11.4. Remaining pulmonary nodules including right lower lobe 1.4 cm nodular opacity, right lateral midlung 1.7 nodular opacity, and peripheral left upper lobe 1.3 cm nodular opacity all FDG avid with standard uptake values ranging from 8-10. Scattered reticular opacities bilaterally. There is some associated FDG avid mediastinal and bilateral hilar lymph nodes. Possible reactive versus metastasis. I favor infection as the patient has copious respiratory mucus production. Microbiology is not known. Severe COPD, with an FEV1 32% of predicted Significant family history of lung cancer Unexplained weight loss, 20 pounds over the last 4 to 5 months Former tobacco smoker, quit in 2005, with significant smoking history and over [id number] history History of hyperlipidemia History of hypertension History of paroxysmal atrial fibrillation, anticoagulated on Eliquis, this has been on hold since last History of localized squamous cell skin cancer, removed by [facility] registered nurse Plan: [place] is on hold, actually has been on hold since continue Rocephin and Zithromax Start IV Solu-Medrol Bronchoscopy and BAL today He is having cough, significant congestion, yellowish sputum production and for that reason he was hospitalized. He remains on room air oxygen. Chest x-ray was done and showed bilateral areas of nodular densities more so in the right upper lobe. I also reviewed the previous CAT scan images that were done this patient over the past 3 years at least. Note that going back to 2019, the CAT scan showed s imilar findings of nonspecific pulmonary nodularity that have progressed in addition to some nonspecific mediastinal lymphadenopathy. Initial PET/CT that was done on 01/23/2022 showed no suspicious FDG activity and the scattered subcentimeter pulmonary nodules were thought to be below PET/CT sensitivity. However, subsequent CAT scan imaging was done on this patient especially the 1 that was done on 12/10/2023 showed interval development of scattered reticular densities and masslike nodules in both lungs along with some development of the right hilar and mild mediastinal lymphadenopathy. Based on that, a PET/CT was done that showed no areas that were metabolically active. There was also mild FDG activity within the mediastinal and bilateral hilar areas. Patient is currently on Rocephin and Zithromax and this will be continued. He does have significant constitutional symptoms. Atypical mycobacterial infection of the lung cannot be completely excluded. Malignancy is felt to be less likely. Bronchoscopy today.
--- NOTE | 2024-01-13 19:56 | P.PCN ---
Date of Procedure: 01/13/24 Preoperative Diagnosis: COPD exacerbation, bilateral nodular pulmonary infiltrates and interstitial densities Postoperative Diagnosis: Same Procedure(s) Performed: Diffuse tracheobronchitis Copious amount of creamy thick respiratory secretions retained throughout the airways Anesthesia: MAC Surgeon: Hali Lawler Estimated Blood Loss (ml): 0 Pathology: other Condition: stable Disposition: floor Operative Findings: Procedure was done under conscious sedation. The patient was placed on a simple facemask with 10 L of oxygen. After achieving adequate sedation, the flexor bronchoscope was introduced through the left nostril it was advanced into the operating room. Examination of the posterior pharynx, showed some retained respiratory secretions that were easily suctioned out. Noted the patient was encountering some mucosal bleeding from the nasal passages that hinders my visibility. I was able to identify the cords and the cord function was within normal limits with normal abduction and adduction. Lidocaine was applied to the vocal cord and following the bronchoscope was advanced to the upper trachea. Examination of tracheobronchial tree showed diffuse tracheobronchitis with mucosal inflammatory changes throughout the airways bilaterally in addition to copious respiratory secretions obstructing the trachea and various airways involving the lower lobes and upper lobes bilaterally. Therapeutic airway suctioning was done. The visualized airways included trachea, bilateral mainstem bronchi, right upper lobe bronchus bronchus intermedius and right middle lobe and right lower lobe bronchus and the very stent segments on the right and examination also included left mainstem bronchus left upper lobe bronchus and left lower bronchus and the various 8 segments on the left. Therapeutic airway suctioning was done. Bronchial lavage of the right lower lo be was done. Total of 20 cc of saline was collected after infusing approximately 40 cc. The aspirate was bloody and purulent. Postop, the patient encountered some difficulties in breathing and the patient was started on IV Solu-Medrol. Currently is on room air oxygen. He will be transferred back to his medical floor.
[2024-01-13] MEDS: methylPREDNISolone SOD SUCCI 125 MG/2 ML VIAL IV SCH (23:32)
--- NOTE | 2024-01-14 10:29 | P.PN ---
Subjective Progress Note Date: 01/14/24 This is 74-year-old male patient of Dr. Randolph who presented with complaints of increased dyspnea and shortness of breath that increased over the past few weeks but has been occurring over the past multiple months. Patient has been followed regularly by pulmonary services for follow-up in regards to lung nodules. Patient reports he had outpatient PET scan and was planning on getting bronchoscopy but had to reschedule. Patient also reports a 20 pound weight loss over the past few months. Additional medical history includes ex-smoker, atrial fibrillation in which his Eliquis has been on hold due to tentative plans for bronchoscopy, COPD, hyperlipidemia, hypertension and skin cancer. Chest x-ray completed showing bilateral areas of nodule density with most marked in the right upper lobe could represent an underlying neoplasm. At this time patient will be admitted patient started on IV antibiotics of Rocephin and Zithromax. Pulmonary services have consult been consulted. Sputum culture ordered. At this time patient is still complaining of increased pain and cough. Patient denies nausea vomiting or diarrhea. Patient denies any urinary burning or frequency. Lab work revealing no significant abnormalities D-dimer negative. Influenza RSV and COVID-19 negative. Current vital signs temp 98.4, heart rate 71, respiratory rate 16, blood pressure 119/70 with a pulse ox of 95% on room air On 01/13/2024 patient was seen and examined on the medical floor he is alert and oriented x 3 in no apparent distress, he is still complaining of shortness of breath especially with activity and occasional cough otherwise he denies any complaints there is no fever or chills no headache or dizziness no chest pain no nausea or vomiting no abdominal pain no diarrhea no blood in the stools no burning with urination no frequency or urgency and no hematuria. Patient is scheduled for bronchoscopy today will continue to follow closely. On 01/14/2024 patient is alert and oriented x 3. Status post bronchoscopy showing thick respiratory secretions. Patient was started on IV steroids post bronchoscopy. Patient reports some improvement. Patient remains on IV antibiotics. Bronchial wash sent for culture. Patient denies chest pain. Patient denies nausea vomiting or diarrhea. Patient denies any urinary burning or frequency. Current vital signs temp 97.7, heart rate 79, respiratory rate 16, blood pressure 122/70 with a pulse ox of 97% on room air Objective - Vital Signs Vital signs: Vital Signs Temp 97.7 F 10/18/24 07:31 Pulse 79 01/14/24 07:31 Resp 16 01/14/24 07:31 BP 122/70 01/14/24 07:31 Pulse Ox 97 01/14/24 07:31 FiO2 Intake & Output 01/13/24 01/14/24 01/14/24 18:59 06:59 18:59 Intake Total 475 590 Balance 475 590 Weight 54.431 kg Intake: IV 475 Oral 590 Other: Voiding Method Toilet Toilet # Voids 1 2 - Exam Head normocephalic Neck supple Lungs coarse rhonchi bilateral, cough Heart regular rate and rhythm S1-S2, no rub or gallop Abdomen is soft nontender nondistended positive bowel sounds no hepatosplenomegaly Extremities no edema Neuro alert and orientated to 3 - Labs CBC & Chem 7: 01/13/24 05:56 01/13/24 05:56 Labs: Microbiology - Last 24 Hours (Table) 01/11/24 21:00 Gram Stain - Preliminary Sputum Sputum Culture - Preliminary Gram Neg Bacilli 01/13/24 17:00 Gram Stain - Preliminary Bronchoalviolar Lavage - Right 01/11/24 18:47 Blood Culture - Preliminary Blood Assessment and Plan Assessment: 1. Increased dyspnea and cough 2. Scattered bilateral pulmonary nodules. Patient has been followed outpatient with pulmonary services PET scan done on 12/24/2023 demonstrating scattered enlarging bilateral nodule densities. Tentative plans for bronchoscopy 3. History of COPD 4. Recent weight loss 20 pounds over the past 4 to 5 months 5. Ex-smoker 6. History of hyperlipidemia 7. History of essential hypertension 8. History of paroxysmal atrial fibrillation. Eliquis currently on hold with tentative plans for bronchoscopy 9. History of skin cancer DVT prophylaxis SCDs Eliquis currently on hold per pulmonary recommendation. GI prophylaxis Pepcid AM labs ordered Pulmonary services following Status post bronchoscopy on 01/13/2024 Patient maintained on IV antibiotics
--- NOTE | 2024-01-14 14:30 | P.PN ---
Subjective Progress Note Date: 01/14/24 Patient is a 74-year-old male with past medical history significant for severe COPD with an FEV1 32% of predicted, lung nodules, significant family history of lung cancer, former tobacco smoker with significant smoking history, and recent unexplained weight loss of 20 pounds. Patient states that over the last month or so he has had left-sided chest pain that is pleuritic in nature. Worse with coughing and deep breathing. He has had a persistent congested cough with a copious amount of green to yellow sputum over the last month or so. No hemoptysis. He does take Eliquis outpatient basis, which has been on hold since last . He is also had associated night sweats. No objective fevers recorded. He has known lung nodules that he follows with Dr. Ma on an outpatient basis. Recently, had a chest CT, in follow-up, showing significant enlargement in the nodules with scattered interstitial densities bilaterally. A PET scan done 12/24/2023 demonstrating scattered bilateral nodular densities including a 3.2 cm mass in the anterior right middle lobe with an SUV 11.4. Remaining nodules including right lower lobe 1.4 cm nodular opacity, right lateral midlung 1.7 nodular opacity, and peripheral left upper lobe 1.3 cm nodular opacity all FDG avid with standard uptake values ranging from 8-10. Scattered reticular opacities bilaterally. There is some associated FDG avid mediastinal and bilateral hilar lymph nodes. Possible reactive versus metastasis. Patient states that over the last 4 to 5 months he is lost approximately 20 pounds without trying. He does have a significant smoking history, but did quit smoking in 2005. His twin sister, brother, and mother all of lung cancer. 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 This was removed by sales utility representative recently. Denies any recent travel. Did live in [place] and [place] for some time in the 80s. No diagnosed autoimmune diseases. CBC: Unremarkable, no leukocytosis. D-dimer low. CMP: Sodium 138, potassium 4.4, chloride 104, serum bicarb 25, BUN 8, creatinine 0.73, glucose 117. Lactic 1.8. LFTs unremarkable. Troponin 0.012. Patient was started on empiric antibiotics in the emergency department. Afebrile. Currently sitting up in bed. He has a congested cough and is bronchospastic. On room air. SpO2 94%. Remaining vitals are stable. On 01/13/2024 the patient is being seen for a follow-up. Clinically unchanged compared to yesterday with copious amount of respiratory secretions and he continues to complain of congested chest and cough and mucus production. Afebrile. White cell count at 9 with a hemoglobin 12.2 and a platelet count of 313. Electrolytes are all within normal limits. Viral screen has been negative. Legionella urine antigen is negative. LFTs are normal. The plan is to do a bronchoscopy and therapeutic airway suctioning and bronchial lavage today. Pulse ox 96% room air oxygen. The sputum sample has been collected has not shown any microbial growth. 01/14/2024, the patient is post bronchoscopy. I performed a bronchoscopy yesterday and there was diffuse tracheobronchitis with copious amount of respite secretions and those were suctioned out. Postop, the patient encountered some increased bronchospasm wheeze and shortness of breath and ultimately this improved and the patient was transferred back to his medical floor and he remains on room air oxygen. IV Solu-Medrol was added. Meanwhile, the initial sputum sample that was sent on this patient is showing gram-negative bacillus. The patient remains on IV Rocephin. Remains on DuoNeb nebulized treatments [id number] and Symbicort as maintenance. Overall, feeling better, less congested and less short of breath compared to yesterday. Sodium is at 141, potassium is at 4.3, BUN is 7 with a creatinine of 0.7. The white cell count is at 9.2 bili was 12.2 and a platelet count of 313. No altered mentation. No pleurisy. No hemoptysis. Objective - Vital Signs Vital signs: Vital Signs Temp 97.7 F 01/14/24 07:31 Pulse 90 01/14/24 12:26 Resp 18 01/14/24 12:26 BP 113/68 01/14/24 12:05 Pulse Ox 93 L 01/14/24 12:05 FiO2 Intake & Output 01/13/24 01/14/24 01/14/24 18:59 06:59 18:59 Intake Total 475 590 Balance 475 590 Weight 54.431 kg Intake: IV 475 Oral 590 Other: Voiding Method Toilet Toilet # Voids 1 2 - Exam GENERAL EXAM: Alert, 74-year-old frail appearing male, on room air. Comfortable in no apparent distress. HEAD: Normocephalic and atraumatic EYES: Normal reaction of pupils, equal size. NOSE: Clear with pink turbinates. THROAT: No erythema or exudates. NECK: No masses, no JVD. CHEST: No chest wall deformity. LUNGS: Equal air entry with coarse rhonchi. Congested cough. Bronchospastic. No conversational dyspnea or accessory muscle use.. CVS: S1 and S2 normal with no audible murmur, regular rhythm. No extra heart sounds ABDOMEN: No hepatosplenomegaly, active bowel sounds, no guarding or rigidity. SPINE: No scoliosis or deformity SKIN: No rashes CENTRAL NERVOUS SYSTEM: No focal deficits, tone is normal in all 4 extremities. EXTREMITIES: There is no peripheral edema, clubbing, or cyanosis. Peripheral pulses are intact. - Labs CBC & Chem 7: 01/13/24 05:56 01/13/24 05:56 Labs: Microbiology - Last 24 Hours (Table) 01/11/24 21:00 Gram Stain - Preliminary Sputum Sputum Culture - Preliminary Gram Neg Bacilli 01/13/24 17:00 Gram Stain - Preliminary Bronchoalviolar Lavage - Right 01/11/24 18:47 Blood Culture - Preliminary Blood Assessment and Plan Assessment: Scattered bilateral pulmonary nodules/masses, recently noted to be enlarging and some new, PET scan done 12/24/2023 demonstrating scattered enlarging bilateral nodular densities including a 3.2 cm mass in the anterior right middle lobe with an SUV 11.4. Remaining pulmonary nodules including right lower lobe 1.4 cm nodular opacity, right lateral midlung 1.7 nodular opacity, and peripheral left upper lobe 1.3 cm nodular opacity all FDG avid with standard uptake values ranging from 8-10. Scattered reticular opacities bilaterally. There is some associated FDG avid mediastinal and bilateral hilar lymph nodes. Possible reactive versus metastasis. I favor infection as the patient has copious respiratory mucus production. Suspect gram-negative pneumonia based on the sputum sample is showing gram-negative bacillus. Patient's status post bronchoscopy and therapeutic airway suctioning and he was found to have diffuse mucosal inflammatory changes and tracheobronchitis and based on the CAT scan findings suspect gram-negative pneumonia. Awaiting final cultures. Acute COPD exacerbation with secondary shortness of breath and Severe COPD, with an FEV1 32% of predicted Significant family history of lung cancer Unexplained weight loss, 20 pounds over the last 4 to 5 months Former tobacco smoker, quit in 2005, with significant smoking history and over 30-[id number] history History of hyperlipidemia History of hypertension History of paroxysmal atrial fibrillation, anticoagulated on Eliquis, this has been on hold since last History of localized squamous cell skin cancer, removed by sales utility representative Plan: Anticoagulation can be resumed continue Rocephin Continue IV Solu-Medrol Bronchoscopy and BAL was done yesterday and the results of the bronchial lavage are still pending. Will do an extensive microbial analysis including AFB and viral screen in addition to bacterial and fungal cultures. Malignancy is felt to be less likely. Bronchoscopy was done on 01/13/2024. Will continue to follow.
[2024-01-14] MEDS: APIXABAN 5 MG TAB PO SCH (20:11)
[2024-01-15 10:17] LABS: Basophils # (A) 0.01 X 10*3/uL (0.00-0.10); Basophils % (A) 0.1 %; Eosinophils # (A) 0 X 10*3/uL (0.04-0.35); Eosinophils % (A) 0 %; HCT 39.2 % (39.6-50.0); Lymphocytes # (A) 0.94 X 10*3/uL (0.90-5.00); Lymphocytes % (A) 9.4 %; MCH 25.4 pg (27.0-32.0); MCHC 30.6 g/dL (32.0-37.0); MCV 82.9 FL (80.0-97.0); Mean Platelet Volume 9.9 FL (9.5-12.2); Monocytes # (A) 0.14 X 10*3/uL (0.20-1.00); Monocytes % (A) 1.4 %; NRBC Per 100 WBC 0 X 10*3/uL (0.00-0.01); Neutrophils # (A) 8.89 X 10*3/uL (1.80-7.70); Neutrophils % (A) 88.5 %; Platelet Count 371 X 10*3/uL (140-440); RBC 4.73 X 10*6/uL (4.40-5.60); RDW 14.2 % (11.5-14.5); WBC 10.04 X 10*3/uL (4.50-10.00)
[2024-01-15 12:02] LABS: ALT 12 U/L (10-49); AST 16 U/L (14-35); Albumin 3.1 g/dL (3.8-4.9); Alkaline Phosphatase 96 U/L (41-126); Blood Urea Nitrogen 18.2 mg/dL (9.0-27.0); Carbon Dioxide 25.5 mmol/L (21.6-31.8); Chloride 109 mmol/L (96-109); Globulin 3.1 g/dL (1.6-3.3); Glucose 139 mg/dL (70-110); Potassium 4.3 mmol/L (3.5-5.5); Sodium 144 mmol/L (135-145); Total Bilirubin <0.2 mg/dL (0.3-1.2); Total Protein 6.2 g/dL (6.2-8.2)
[2024-01-15] MEDS: CEFEPIME 2 GM in SODIUM CHLORIDE 0.9% 100 ML IVPB SCH (12:47)
--- NOTE | 2024-01-15 14:02 | P.PN ---
Subjective Progress Note Date: 01/15/24 This is 74-year-old male patient of Dr. Randolph who presented with complaints of increased dyspnea and shortness of breath that increased over the past few weeks but has been occurring over the past multiple months. Patient has been followed regularly by pulmonary services for follow-up in regards to lung nodules. Patient reports he had outpatient PET scan and was planning on getting bronchoscopy but had to reschedule. Patient also reports a 20 pound weight loss over the past few months. Additional medical history includes ex-smoker, atrial fibrillation in which his Eliquis has been on hold due to tentative plans for bronchoscopy, COPD, hyperlipidemia, hypertension and skin cancer. Chest x-ray completed showing bilateral areas of nodule density with most marked in the right upper lobe could represent an underlying neoplasm. At this time patient will be admitted patient started on IV antibiotics of Rocephin and Zithromax. Pulmonary services have consult been consulted. Sputum culture ordered. At this time patient is still complaining of increased pain and cough. Patient denies nausea vomiting or diarrhea. Patient denies any urinary burning or frequency. Lab work revealing no significant abnormalities D-dimer negative. Influenza RSV and COVID-19 negative. Current vital signs temp 98.4, heart rate 71, respiratory rate 16, blood pressure 119/70 with a pulse ox of 95% on room air On 01/13/2024 patient was seen and examined on the medical floor he is alert and oriented x 3 in no apparent distress, he is still complaining of shortness of breath especially with activity and occasional cough otherwise he denies any complaints there is no fever or chills no headache or dizziness no chest pain no nausea or vomiting no abdominal pain no diarrhea no blood in the stools no burning with urination no frequency or urgency and no hematuria. Patient is scheduled for bronchoscopy today will continue to follow closely. On 01/14/2024 patient is alert and oriented x 3. Status post bronchoscopy showing thick respiratory secretions. Patient was started on IV steroids post bronchoscopy. Patient reports some improvement. Patient remains on IV antibiotics. Bronchial wash sent for culture. Patient denies chest pain. Patient denies nausea vomiting or diarrhea. Patient denies any urinary burning or frequency. Current vital signs temp 97.7, heart rate 79, respiratory rate 16, blood pressure 122/70 with a pulse ox of 97% on room air On 01/15/2024 patient was seen and examined on the medical floor he is alert and oriented x 3 in no apparent distress there is no fever or chills no headache or dizziness he is still having cough and shortness of breath with activity there is no chest pain no palpitation no nausea or vomiting no abdominal pain no diarrhea no urinary symptoms. Antibiotic were switched to cefepime, pulmonary are following, will continue to follow closely Objective - Vital Signs Vital signs: Vital Signs Temp 97.8 F 01/15/24 07:31 Pulse 92 01/15/24 11:10 Resp 14 01/15/24 08:50 BP 161/63 01/15/24 07:31 Pulse Ox 94 L 01/15/24 07:31 FiO2 Intake & Output 01/14/24 01/15/24 01/15/24 18:59 06:59 18:59 Intake Total 540 Balance 540 Weight 54.431 kg Intake: Oral 540 Other: Voiding Method Toilet Toilet - Exam Head normocephalic Neck supple Lungs coarse rhonchi bilateral, cough Heart regular rate and rhythm S1-S2, no rub or gallop Abdomen is soft nontender nondistended positive bowel sounds no hepatosplenomegaly Extremities no edema Neuro alert and orientated to 3 - Labs CBC & Chem 7: 01/15/24 05:10 01/15/24 05:10 Labs: Abnormal Lab Results - Last 24 Hours (Table) 01/15/24 01/15/24 Range/Units 05:10 05:10 WBC 10.04 H (4.50-10.00) X 10*3/uL Hgb 12.0 L (13.0-17.0) g/dL Hct 39.2 L (39.6-50.0) % MCH 25.4 L (27.0-32.0) pg MCHC 30.6 L (32.0-37.0) g/dL Immature Gran # 0.06 H (0.00-0.04) X 10*3/uL Neutrophils # 8.89 H (1.80-7.70) X 10*3/uL Monocytes # 0.14 L (0.20-1.00) X 10*3/uL Eosinophils # 0 L (0.04-0.35) X 10*3/uL BUN/Creatinine Ratio 26.00 H (12.00-20.00) Ratio Glucose 139 H (70-110) mg/dL Total Bilirubin <0.2 L (0.3-1.2) mg/dL Albumin 3.1 L (3.8-4.9) g/dL Albumin/Globulin Ratio 1.00 L (1.60-3.17) Ratio Microbiology - Last 24 Hours (Table) 01/11/24 21:00 Gram Stain - Final Sputum Sputum Culture - Final Pseudomonas aeruginosa 01/11/24 18:47 Blood Culture - Preliminary Blood Assessment and Plan Assessment: 1. Increased dyspnea and cough 2. Scattered bilateral pulmonary nodules. Patient has been followed outpatient with pulmonary services PET scan done on 12/24/2023 demonstrating scattered enlarging bilateral nodule densities. Tentative plans for bronchoscopy 3. History of COPD 4. Recent weight loss 20 pounds over the past 4 to 5 months 5. Ex-smoker 6. History of hyperlipidemia 7. History of essential hypertension 8. History of paroxysmal atrial fibrillation. Eliquis currently on hold with tentative plans for bronchoscopy 9. History of skin cancer DVT prophylaxis SCDs Eliquis currently on hold per pulmonary recommendation. GI prophylaxis Pepcid AM labs ordered Pulmonary services following Status post bronchoscopy on 01/13/2024 Patient maintained on IV antibiotics
--- NOTE | 2024-01-15 16:40 | P.PN ---
Subjective Progress Note Date: 01/15/24 Patient is a 74-year-old male with past medical history significant for severe COPD with an FEV1 32% of predicted, lung nodules, significant family history of lung cancer, former tobacco smoker with significant smoking history, and recent unexplained weight loss of 20 pounds. Patient states that over the last month or so he has had left-sided chest pain that is pleuritic in nature. Worse with coughing and deep breathing. He has had a persistent congested cough with a copious amount of green to yellow sputum over the last month or so. No hemoptysis. He does take Eliquis outpatient basis, which has been on hold since last . He is also had associated night sweats. No objective fevers recorded. He has known lung nodules that he follows with Dr. Ma on an outpatient basis. Recently, had a chest CT, in follow-up, showing significant enlargement in the nodules with scattered interstitial densities bilaterally. A PET scan done 12/24/2023 demonstrating scattered bilateral nodular densities including a 3.2 cm mass in the anterior right middle lobe with an SUV 11.4. Remaining nodules including right lower lobe 1.4 cm nodular opacity, right lateral midlung 1.7 nodular opacity, and peripheral left upper lobe 1.3 cm nodular opacity all FDG avid with standard uptake values ranging from 8-10. Scattered reticular opacities bilaterally. There is some associated FDG avid mediastinal and bilateral hilar lymph nodes. Possible reactive versus metastasis. Patient states that over the last 4 to 5 months he is lost approximately 20 pounds without trying. He does have a significant smoking history, but did quit smoking in 2005. His twin sister, brother, and mother all of lung cancer. 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 This was removed by manufacturing planner recently. Denies any recent travel. Did live in [place] and [place] for some time in the 80s. No diagnosed autoimmune diseases. CBC: Unremarkable, no leukocytosis. D-dimer low. CMP: Sodium 138, potassium 4.4, chloride 104, serum bicarb 25, BUN 8, creatinine 0.73, glucose 117. Lactic 1.8. LFTs unremarkable. Troponin 0.012. Patient was started on empiric antibiotics in the emergency department. Afebrile. Currently sitting up in bed. He has a congested cough and is bronchospastic. On room air. SpO2 94%. Remaining vitals are stable. On 01/13/2024 the patient is being seen for a follow-up. Clinically unchanged compared to yesterday with copious amount of respiratory secretions and he continues to complain of congested chest and cough and mucus production. Afebrile. White cell count at 9 with a hemoglobin 12.2 and a platelet count of 313. Electrolytes are all within normal limits. Viral screen has been negative. Legionella urine antigen is negative. LFTs are normal. The plan is to do a bronchoscopy and therapeutic airway suctioning and bronchial lavage today. Pulse ox 96% room air oxygen. The sputum sample has been collected has not shown any microbial growth. 01/14/2024, the patient is post bronchoscopy. I performed a bronchoscopy yesterday and there was diffuse tracheobronchitis with copious amount of respite secretions and those were suctioned out. Postop, the patient encountered some increased bronchospasm wheeze and shortness of breath and ultimately this improved and the patient was transferred back to his medical floor and he remains on room air oxygen. IV Solu-Medrol was added. Meanwhile, the initial sputum sample that was sent on this patient is showing gram-negative bacillus. The patient remains on IV Rocephin. Remains on DuoNeb nebulized treatments [id number] and Symbicort as maintenance. Overall, feeling better, less congested and less short of breath compared to yesterday. Sodium is at 141, potassium is at 4.3, BUN is 7 with a creatinine of 0.7. The white cell count is at 9.2 bili was 12.2 and a platelet count of 313. No altered mentation. No pleurisy. No hemoptysis. 01/15/2024, the patient is doing better. No new complaints. Sputum sample was positive for Pseudomonas aeruginosa. The results of the bronchial lavage are still pending for now., The patient will be started on IV cefepime. The patient remains on IV Solu-Medrol. Doing well. No significant shortness of breath. Remains on room air oxygen. Clinically improving and the patient is obviously a smoker spastic and wheezy on today's evaluation. No altered mentation. No hemoptysis. No other significant events overnight. Active, ambulating, tolerating his diet. Objective - Vital Signs Vital signs: Vital Signs Temp 97.8 F 01/15/24 07:31 Pulse 90 01/15/24 15:14 Resp 14 01/15/24 08:50 BP 161/63 01/15/24 07:31 Pulse Ox 94 L 01/15/24 07:31 FiO2 Intake & Output 01/14/24 01/15/24 01/15/24 18:59 06:59 18:59 Intake Total 540 Balance 540 Weight 54.431 kg Intake: Oral 540 Other: Voiding Method Toilet Toilet - Exam GENERAL EXAM: Alert, 74-year-old frail appearing male, on room air. Comfortable in no apparent distress. HEAD: Normocephalic and atraumatic EYES: Normal reaction of pupils, equal size. NOSE: Clear with pink turbinates. THROAT: No erythema or exudates. NECK: No masses, no JVD. CHEST: No chest wall deformity. LUNGS: Equal air entry with coarse rhonchi. Congested cough. Bronchospastic. No conversational dyspnea or accessory muscle use.. CVS: S1 and S2 normal with no audible murmur, regular rhythm. No extra heart sounds ABDOMEN: No hepatosplenomegaly, active bowel sounds, no guarding or rigidity. SPINE: No scoliosis or deformity SKIN: No rashes CENTRAL NERVOUS SYSTEM: No focal deficits, tone is normal in all 4 extremities. EXTREMITIES: There is no peripheral edema, clubbing, or cyanosis. Peripheral pulses are intact. - Labs CBC & Chem 7: 01/15/24 05:10 01/15/24 05:10 Labs: Abnormal Lab Results - Last 24 Hours (Table) 01/15/24 01/15/24 Range/Units 05:10 05:10 WBC 10.04 H (4.50-10.00) X 10*3/uL Hgb 12.0 L (13.0-17.0) g/dL Hct 39.2 L (39.6-50.0) % MCH 25.4 L (27.0-32.0) pg MCHC 30.6 L (32.0-37.0) g/dL Immature Gran # 0.06 H (0.00-0.04) X 10*3/uL Neutrophils # 8.89 H (1.80-7.70) X 10*3/uL Monocytes # 0.14 L (0.20-1.00) X 10*3/uL Eosinophils # 0 L (0.04-0.35) X 10*3/uL BUN/Creatinine Ratio 26.00 H (12.00-20.00) Ratio Glucose 139 H (70-110) mg/dL Total Bilirubin <0.2 L (0.3-1.2) mg/dL Albumin 3.1 L (3.8-4.9) g/dL Albumin/Globulin Ratio 1.00 L (1.60-3.17) Ratio Microbiology - Last 24 Hours (Table) 01/13/24 17:00 Gram Stain - Preliminary Bronchoalviolar Lavage - Right Bronchial Washings Culture - Preliminary 01/11/24 21:00 Gram Stain - Final Sputum Sputum Culture - Final Pseudomonas aeruginosa 01/11/24 18:47 Blood Culture - Preliminary Blood Assessment and Plan Assessment: Scattered bilateral pulmonary nodules/masses, recently noted to be enlarging and some new, PET scan done 12/24/2023 demonstrating scattered enlarging bilateral nodular densities including a 3.2 cm mass in the anterior right middle lobe with an SUV 11.4. Remaining pulmonary nodules including right lower lobe 1.4 cm nodular opacity, right lateral midlung 1.7 nodular opacity, and peripheral left upper lobe 1.3 cm nodular opacity all FDG avid with standard uptake values ranging from 8-10. Scattered reticular opacities bilaterally. There is some associated FDG avid mediastinal and bilateral hilar lymph nodes. Possible reactive versus metastasis. I favor infection as the patient has copious respiratory mucus production. Suspect gram-negative pneumonia based on the sputum sample is showing gram-negative bacillus. Patient's status post bronchoscopy and therapeutic airway suctioning and he was found to have diffuse mucosal inflammatory changes and tracheobronchitis and based on the CAT scan findings suspect gram-negative/pseudomonal pneumonia. Antibiotics and the patient will be switched to IV cefepime Acute COPD exacerbation with secondary shortness of breath and Severe COPD, with an FEV1 32% of predicted Significant family history of lung cancer Unexplained weight loss, 20 pounds over the last 4 to 5 months Former tobacco smoker, quit in 2005, with significant smoking history and over [id number] history History of hyperlipidemia History of hypertension History of paroxysmal atrial fibrillation, anticoagulated on Eliquis, this has been on hold since last History of localized squamous cell skin cancer, removed by manufacturing planner Plan: Clinically improved Will switch this patient antibiotic coverage with IV cefepime Continue IV Solu-Medrol Awaiting final results from the bronchial lavage done earlier Malignancy is felt to be less likely. Bronchoscopy was done on 01/13/2024. Will continue to follow.
--- NOTE | 2024-01-16 09:59 | P.PN ---
Subjective Progress Note Date: 01/16/24 This is 74-year-old male patient of Dr. Randolph who presented with complaints of increased dyspnea and shortness of breath that increased over the past few weeks but has been occurring over the past multiple months. Patient has been followed regularly by pulmonary services for follow-up in regards to lung nodules. Patient reports he had outpatient PET scan and was planning on getting bronchoscopy but had to reschedule. Patient also reports a 20 pound weight loss over the past few months. Additional medical history includes ex-smoker, atrial fibrillation in which his Eliquis has been on hold due to tentative plans for bronchoscopy, COPD, hyperlipidemia, hypertension and skin cancer. Chest x-ray completed showing bilateral areas of nodule density with most marked in the right upper lobe could represent an underlying neoplasm. At this time patient will be admitted patient started on IV antibiotics of Rocephin and Zithromax. Pulmonary services have consult been consulted. Sputum culture ordered. At this time patient is still complaining of increased pain and cough. Patient denies nausea vomiting or diarrhea. Patient denies any urinary burning or frequency. Lab work revealing no significant abnormalities D-dimer negative. Influenza RSV and COVID-19 negative. Current vital signs temp 98.4, heart rate 71, respiratory rate 16, blood pressure 119/70 with a pulse ox of 95% on room air On 01/13/2024 patient was seen and examined on the medical floor he is alert and oriented x 3 in no apparent distress, he is still complaining of shortness of breath especially with activity and occasional cough otherwise he denies any complaints there is no fever or chills no headache or dizziness no chest pain no nausea or vomiting no abdominal pain no diarrhea no blood in the stools no burning with urination no frequency or urgency and no hematuria. Patient is scheduled for bronchoscopy today will continue to follow closely. On 01/14/2024 patient is alert and oriented x 3. Status post bronchoscopy showing thick respiratory secretions. Patient was started on IV steroids post bronchoscopy. Patient reports some improvement. Patient remains on IV antibiotics. Bronchial wash sent for culture. Patient denies chest pain. Patient denies nausea vomiting or diarrhea. Patient denies any urinary burning or frequency. Current vital signs temp 97.7, heart rate 79, respiratory rate 16, blood pressure 122/70 with a pulse ox of 97% on room air On 01/15/2024 patient was seen and examined on the medical floor he is alert and oriented x 3 in no apparent distress there is no fever or chills no headache or dizziness he is still having cough and shortness of breath with activity there is no chest pain no palpitation no nausea or vomiting no abdominal pain no diarrhea no urinary symptoms. Antibiotic were switched to cefepime, pulmonary are following, will continue to follow closely On 01/16/2024 patient is alert and oriented x 3. Patient reports improvement with shortness of breath. Patient reports he was able to cough some stuff up throughout the night. Patient remains on IV antibiotics and IV steroids. Pulmonary services are following awaiting cultures from bronchoscopy. Current vital signs temp 97.4, heart rate 78, respiratory rate 14, blood pressure 125/78 with a pulse ox of 93% on room air Objective - Vital Signs Vital signs: Vital Signs Temp 97.4 F L 01/16/24 07:28 Pulse 78 01/16/24 08:40 Resp 14 01/16/24 08:40 BP 125/78 01/16/24 07:28 Pulse Ox 93 L 01/16/24 07:28 FiO2 Intake & Output 01/15/24 01/16/24 01/16/24 18:59 06:59 18:59 Intake Total 240 540 Balance 240 540 Intake: Oral 240 540 Other: Voiding Method Toilet Toilet Toilet # Voids 4 - Exam Head normocephalic Neck supple Lungs coarse rhonchi bilateral, cough Heart regular rate and rhythm S1-S2, no rub or gallop Abdomen is soft nontender nondistended positive bowel sounds no hepatosplenomegaly Extremities no edema Neuro alert and orientated to 3 - Labs CBC & Chem 7: 01/15/24 05:10 01/15/24 05:10 Labs: Abnormal Lab Results - Last 24 Hours (Table) 01/15/24 01/15/24 Range/Units 05:10 05:10 WBC 10.04 H (4.50-10.00) X 10*3/uL Hgb 12.0 L (13.0-17.0) g/dL Hct 39.2 L (39.6-50.0) % MCH 25.4 L (27.0-32.0) pg MCHC 30.6 L (32.0-37.0) g/dL Immature Gran # 0.06 H (0.00-0.04) X 10*3/uL Neutrophils # 8.89 H (1.80-7.70) X 10*3/uL Monocytes # 0.14 L (0.20-1.00) X 10*3/uL Eosinophils # 0 L (0.04-0.35) X 10*3/uL BUN/Creatinine Ratio 26.00 H (12.00-20.00) Ratio Glucose 139 H (70-110) mg/dL Total Bilirubin <0.2 L (0.3-1.2) mg/dL Albumin 3.1 L (3.8-4.9) g/dL Albumin/Globulin Ratio 1.00 L (1.60-3.17) Ratio Microbiology - Last 24 Hours (Table) 01/13/24 17:00 Acid Fast Bacilli Smear - Preliminary Bronchoalviolar Lavage - Right 01/13/24 17:00 Gram Stain - Preliminary Bronchoalviolar Lavage - Right Bronchial Washings Culture - Preliminary 01/11/24 21:00 Gram Stain - Final Sputum Sputum Culture - Final Pseudomonas aeruginosa Assessment and Plan Assessment: 1. Increased dyspnea and cough 2. Scattered bilateral pulmonary nodules. Patient has been followed outpatient with pulmonary services PET scan done on 12/24/2023 demonstrating scattered enlarging bilateral nodule densities. Tentative plans for bronchoscopy 3. History of COPD 4. Recent weight loss 20 pounds over the past 4 to 5 months 5. Ex-smoker 6. History of hyperlipidemia 7. History of essential hypertension 8. History of paroxysmal atrial fibrillation. Eliquis currently on hold with tentative plans for bronchoscopy 9. History of skin cancer DVT prophylaxis SCDs Eliquis currently on hold per pulmonary recommendation. GI prophylaxis Pepcid AM labs ordered Pulmonary services following Status post bronchoscopy on 01/13/2024 Patient maintained on IV antibiotics
[2024-01-16] MEDS: SODIUM CHLORIDE 0.9% 1,000 ML IV SCH (11:03)
--- NOTE | 2024-01-16 14:01 | P.PN ---
Subjective Progress Note Date: 01/16/24 Patient is a 74-year-old male with past medical history significant for severe COPD with an FEV1 32% of predicted, lung nodules, significant family history of lung cancer, former tobacco smoker with significant smoking history, and recent unexplained weight loss of 20 pounds. Patient states that over the last month or so he has had left-sided chest pain that is pleuritic in nature. Worse with coughing and deep breathing. He has had a persistent congested cough with a copious amount of green to yellow sputum over the last month or so. No hemoptysis. He does take Eliquis outpatient basis, which has been on hold since last . He is also had associated night sweats. No objective fevers recorded. He has known lung nodules that he follows with Dr. Ma on an outpatient basis. Recently, had a chest CT, in follow-up, showing significant enlargement in the nodules with scattered interstitial densities bilaterally. A PET scan done 12/24/2023 demonstrating scattered bilateral nodular densities including a 3.2 cm mass in the anterior right middle lobe with an SUV 11.4. Remaining nodules including right lower lobe 1.4 cm nodular opacity, right lateral midlung 1.7 nodular opacity, and peripheral left upper lobe 1.3 cm nodular opacity all FDG avid with standard uptake values ranging from 8-10. Scattered reticular opacities bilaterally. There is some associated FDG avid mediastinal and bilateral hilar lymph nodes. Possible reactive versus metastasis. Patient states that over the last 4 to 5 months he is lost approximately 20 pounds without trying. He does have a significant smoking history, but did quit smoking in 2005. His twin sister, brother, and mother all of lung cancer. 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 This was removed by assistant men's lacrosse coach recently. Denies any recent travel. Did live in [place] and [place] for some time in the 80s. No diagnosed autoimmune diseases. CBC: Unremarkable, no leukocytosis. D-dimer low. CMP: Sodium 138, potassium 4.4, chloride 104, serum bicarb 25, BUN 8, creatinine 0.73, glucose 117. Lactic 1.8. LFTs unremarkable. Troponin 0.012. Patient was started on empiric antibiotics in the emergency department. Afebrile. Currently sitting up in bed. He has a congested cough and is bronchospastic. On room air. SpO2 94%. Remaining vitals are stable. On 01/13/2024 the patient is being seen for a follow-up. Clinically unchanged compared to yesterday with copious amount of respiratory secretions and he continues to complain of congested chest and cough and mucus production. Afebrile. White cell count at 9 with a hemoglobin 12.2 and a platelet count of 313. Electrolytes are all within normal limits. Viral screen has been negative. Legionella urine antigen is negative. LFTs are normal. The plan is to do a bronchoscopy and therapeutic airway suctioning and bronchial lavage today. Pulse ox 96% room air oxygen. The sputum sample has been collected has not shown any microbial growth. 01/14/2024, the patient is post bronchoscopy. I performed a bronchoscopy yesterday and there was diffuse tracheobronchitis with copious amount of respite secretions and those were suctioned out. Postop, the patient encountered some increased bronchospasm wheeze and shortness of breath and ultimately this improved and the patient was transferred back to his medical floor and he remains on room air oxygen. IV Solu-Medrol was added. Meanwhile, the initial sputum sample that was sent on this patient is showing gram-negative bacillus. The patient remains on IV Rocephin. Remains on DuoNeb nebulized treatments [id number] and Symbicort as maintenance. Overall, feeling better, less congested and less short of breath compared to yesterday. Sodium is at 141, potassium is at 4.3, BUN is 7 with a creatinine of 0.7. The white cell count is at 9.2 bili was 12.2 and a platelet count of 313. No altered mentation. No pleurisy. No hemoptysis. 01/15/2024, the patient is doing better. No new complaints. Sputum sample was positive for Pseudomonas aeruginosa. The results of the bronchial lavage are still pending for now., The patient will be started on IV cefepime. The patient remains on IV Solu-Medrol. Doing well. No significant shortness of breath. Remains on room air oxygen. Clinically improving and the patient is obviously a smoker spastic and wheezy on today's evaluation. No altered mentation. No hemoptysis. No other significant events overnight. Active, ambulating, tolerating his diet. 01/16/2024, the patient is already feeling much better. No significant cough sputum production chest tightness or wheezing. The bronchioloalveolar lavage showed a combination of Klebsiella oxytoca and Pseudomonas aeruginosa as expected. The patient is currently on IV cefepime. He remains on IV Solu- Medrol. Respiratory status improved considerably. No new complaints for now. Objective - Vital Signs Vital signs: Vital Signs Temp 97.4 F L 01/16/24 07:28 Pulse 80 01/16/24 10:53 Resp 14 01/16/24 08:40 BP 125/78 01/16/24 07:28 Pulse Ox 93 L 01/16/24 07:28 FiO2 Intake & Output 01/15/24 01/16/24 01/16/24 18:59 06:59 18:59 Intake Total 240 540 Balance 240 540 Intake: Oral 240 540 Other: Voiding Method Toilet Toilet Toilet # Voids 4 - Exam GENERAL EXAM: Alert, 74-year-old frail appearing male, on room air. Comfortable in no apparent distress. HEAD: Normocephalic and atraumatic EYES: Normal reaction of pupils, equal size. NOSE: Clear with pink turbinates. THROAT: No erythema or exudates. NECK: No masses, no JVD. CHEST: No chest wall deformity. LUNGS: Equal air entry with coarse rhonchi. Congested cough. Bronchospastic. No conversational dyspnea or accessory muscle use.. CVS: S1 and S2 normal with no audible murmur, regular rhythm. No extra heart sounds ABDOMEN: No hepatosplenomegaly, active bowel sounds, no guarding or rigidity. SPINE: No scoliosis or deformity SKIN: No rashes CENTRAL NERVOUS SYSTEM: No focal deficits, tone is normal in all 4 extremities. EXTREMITIES: There is no peripheral edema, clubbing, or cyanosis. Peripheral pulses are intact. - Labs CBC & Chem 7: 01/15/24 05:10 01/15/24 05:10 Labs: Abnormal Lab Results - Last 24 Hours (Table) 01/15/24 Range/Units 05:10 BUN/Creatinine Ratio 26.00 H (12.00-20.00) Ratio Glucose 139 H (70-110) mg/dL Total Bilirubin <0.2 L (0.3-1.2) mg/dL Albumin 3.1 L (3.8-4.9) g/dL Albumin/Globulin Ratio 1.00 L (1.60-3.17) Ratio Microbiology - Last 24 Hours (Table) 01/13/24 17:00 Acid Fast Bacilli Smear - Preliminary Bronchoalviolar Lavage - Right 01/13/24 17:00 Gram Stain - Preliminary Bronchoalviolar Lavage - Right Bronchial Washings Culture - Preliminary 01/11/24 21:00 Gram Stain - Final Sputum Sputum Culture - Final Pseudomonas aeruginosa Assessment and Plan Assessment: Scattered bilateral pulmonary nodules/masses, recently noted to be enlarging and some new, PET scan done 12/24/2023 demonstrating scattered enlarging bilateral nodular densities including a 3.2 cm mass in the anterior right middle lobe with an SUV 11.4. Remaining pulmonary nodules including right lower lobe 1.4 cm nodular opacity, right lateral midlung 1.7 nodular opacity, and peripheral left upper lobe 1.3 cm nodular opacity all FDG avid with standard uptake values ranging from 8-10. Scattered reticular opacities bilaterally. There is some associated FDG avid mediastinal and bilateral hilar lymph nodes. Possible reactive versus metastasis. I favor infection as the patient has copious respiratory mucus production. Patient's status post bronchoscopy and therapeutic airway suctioning and he was found to have diffuse mucosal inflammatory changes and tracheobronchitis and based on the CAT scan findings suspect gram-negative/pseudomonal/Klebsiella pneumonia. 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 Bronchoscopy was done on 01/13/2024. Clinically much improved Repeat chest x-ray in the morning Consider discharging him on a quinolone on an outpatient basis. I suggest a long course of quinolone treatment at least 2 to 3 weeks to give the patient benefit of the doubt and change for complete healing. Will taper the patient's steroids and start him on a prednisone burst taper as of tomorrow.
[2024-01-17 02:03] VITALS: TEMP 97.6
[2024-01-17 09:00] LABS: Basophils # (A) 0.01 X 10*3/uL (0.00-0.10); Basophils % (A) 0.1 %; Eosinophils # (A) 0 X 10*3/uL (0.04-0.35); Eosinophils % (A) 0 %; HCT 36.8 % (39.6-50.0); HGB 11.4 g/dL (13.0-17.0); Lymphocytes # (A) 0.97 X 10*3/uL (0.90-5.00); Lymphocytes % (A) 8.4 %; MCH 25.4 pg (27.0-32.0); Mean Platelet Volume 9.7 FL (9.5-12.2); Monocytes # (A) 0.27 X 10*3/uL (0.20-1.00); Monocytes % (A) 2.4 %; NRBC Per 100 WBC 0 X 10*3/uL (0.00-0.01); Neutrophils # (A) 10.09 X 10*3/uL (1.80-7.70); Neutrophils % (A) 87.9 %; Platelet Count 311 X 10*3/uL (140-440); RBC 4.49 X 10*6/uL (4.40-5.60); RDW 14.6 % (11.5-14.5); WBC 11.48 X 10*3/uL (4.50-10.00)
--- NOTE | 2024-01-17 10:22 | P.PN ---
Subjective Progress Note Date: 01/17/24 This is a pleasant 74-year-old male patient seen today January 17 2024 in follow-up on the regular medical floor. He is awake and alert in no acute distress. Maintaining good O2 saturations in the 90s on room air. He has been afebrile. Hemodynamically stable. Feeling nearly back to his baseline. B ronchoscopy cultures were positive for Pseudomonas aeruginosa and Klebsiella oxytoca. White count 11.4. Hemoglobin 11.4. Platelets 311. He is continued on DuoNeb and elations, Symbicort, Solu-Medrol. Antibiotics in the form of cefepime. Anticoagulated with Eliquis. Objective - Vital Signs Vital signs: Vital Signs Temp 97.6 F 01/17/24 08:00 Pulse 80 01/17/24 08:29 Resp 17 01/17/24 08:00 BP 111/62 01/17/24 08:00 Pulse Ox 93 L 01/17/24 08:00 FiO2 Intake & Output 01/16/24 01/17/24 01/17/24 18:59 06:59 18:59 Intake Total 360 780 Output Total 800 Balance 360 -20 Intake: Oral 360 780 Output: Urine 800 Other: Voiding Method Toilet Toilet # Voids 3 1 - Exam GENERAL EXAM: Alert, active, pleasant 74-year-old male, on room air, comfortable in no apparent distress. HEAD: Normocephalic. EYES: Normal reaction of pupils, equal size. NOSE: Clear with pink turbinates. THROAT: No erythema or exudates. NECK: No masses, no JVD. CHEST: No chest wall deformity. LUNGS: Equal air entry with no crackles, wheeze, rhonchi or dullness. CVS: S1 and S2 normal with no audible murmur, regular rhythm. ABDOMEN: No hepatosplenomegaly, normal bowel sounds, no guarding or rigidity. SPINE: No scoliosis or deformity SKIN: No rashes CENTRAL NERVOUS SYSTEM: No focal deficits, tone is normal in all 4 extremities. EXTREMITIES: There is no peripheral edema. No clubbing, no cyanosis. Peripheral pulses are intact. - Labs CBC & Chem 7: 01/17/24 05:02 01/15/24 05:10 Labs: Abnormal Lab Results - Last 24 Hours (Table) 01/17/24 Range/Units 05:02 WBC 11.48 H (4.50-10.00) X 10*3/uL Hgb 11.4 L (13.0-17.0) g/dL Hct 36.8 L (39.6-50.0) % MCH 25.4 L (27.0-32.0) pg MCHC 31.0 L (32.0-37.0) g/dL RDW 14.6 H (11.5-14.5) % Immature Gran # 0.14 H (0.00-0.04) X 10*3/uL Neutrophils # 10.09 H (1.80-7.70) X 10*3/uL Eosinophils # 0 L (0.04-0.35) X 10*3/uL Microbiology - Last 24 Hours (Table) 01/13/24 17:00 Gram Stain - Final Bronchoalviolar Lavage - Right Bronchial Washings Culture - Final Pseudomonas aeruginosa Klebsiella oxytoca 01/11/24 18:47 Blood Culture - Final Blood Assessment and Plan Assessment: Scattered bilateral pulmonary nodules/masses, recently noted to be enlarging and some new, PET scan done 12/24/2023 demonstrating scattered enlarging bilateral nodular densities including a 3.2 cm mass in the anterior right middle lobe with an SUV 11.4. Remaining pulmonary nodules including right lower lobe 1.4 cm nodular opacity, right lateral midlung 1.7 nodular opacity, and peripheral left upper lobe 1.3 cm nodular opacity all FDG avid with standard uptake values ranging from 8-10. Scattered reticular opacities bilaterally. There is some associated FDG avid mediastinal and bilateral hilar lymph nodes. Possible reactive versus metastasis. Infection favored as the patient has copious respiratory mucus production. Status post bronchoscopy and therapeutic airway suctioning and he was found to have diffuse mucosal inflammatory changes and tracheobronchitis and based on the CAT scan findings and positive for pseudomonal/Klebsiella pneumonia. 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 Number of minutes spent on the visit: 24 Dictation was produced using [employer] dictation software. Please excuse any grammatical, word or spelling errors.
[2024-01-17 11:01] LABS: ALT 150 U/L (10-49); AST 90 U/L (14-35); Albumin 2.7 g/dL (3.8-4.9); Albumin/Globulin Ratio 1.08 Ratio (1.60-3.17); Alkaline Phosphatase 72 U/L (41-126); BUN/Creat Ratio 26.62 Ratio (12.00-20.00); Blood Urea Nitrogen 21.3 mg/dL (9.0-27.0); Calcium 8.4 mg/dL (8.7-10.3); Carbon Dioxide 24.4 mmol/L (21.6-31.8); Chloride 109 mmol/L (96-109); Globulin 2.5 g/dL (1.6-3.3); Glucose 123 mg/dL (70-110); Potassium 4.4 mmol/L (3.5-5.5); Sodium 143 mmol/L (135-145); Total Bilirubin <0.2 mg/dL (0.3-1.2); Total Protein 5.2 g/dL (6.2-8.2)
[2024-01-17 13:01] VITALS: BP 101/61; RESP 16
[2024-01-17 16:14] VITALS: PULSE 80
--- NOTE | 2024-01-17 16:53 | P.DS ---
Providers Date of admission: 01/11/24 20:21 Expected date of discharge: 01/17/24 Attending physician: Sara London Consults: 01/11/24 20:21 Consult Physician Routine Consulting Provider: Hali Lawler Consult Reason/Comments: Lung opacifications, dyspnea, chest pain Do you want consulting provider notified?: Yes Primary care physician: Maryann Randolph Hospital Course: Diagnosis on discharge: 1. Increased dyspnea and cough 2. Scattered bilateral pulmonary nodules. Patient has been followed outpatient with pulmonary services PET scan done on 12/24/2023 demonstrating scattered enlarging bilateral nodule densities. Tentative plans for bronchoscopy 3. History of COPD 4. Recent weight loss 20 pounds over the past 4 to 5 months 5. Ex-smoker 6. History of hyperlipidemia 7. History of essential hypertension 8. History of paroxysmal atrial fibrillation. Eliquis currently on hold with tentative plans for bronchoscopy 9. History of skin cancer Hospital course: This is 74-year-old male patient of Dr. Randolph who presented with complaints of increased dyspnea and shortness of breath that increased over the past few weeks but has been occurring over the past multiple months. Patient has been followed regularly by pulmonary services for follow-up in regards to lung nodules. Patient reports he had outpatient PET scan and was planning on getting bronchoscopy but had to reschedule. Patient also reports a 20 pound weight loss over the past few months. Additional medical history includes ex-smoker, atrial fibrillation in which his Eliquis has been on hold due to tentative plans for bronchoscopy, COPD, hyperlipidemia, hypertension and skin cancer. Chest x-ray completed showing bilateral areas of nodule density with most marked in the right upper lobe could represent an underlying neoplasm. At this time patient will be admitted patient started on IV antibiotics of Rocephin and Zithromax. Pulmonary services have consult been consulted. Sputum culture ordered. At this time patient is still complaining of increased pain and cough. Patient denies nausea vomiting or diarrhea. Patient denies any urinary burning or frequency. Lab work revealing no significant abnormalities D-dimer negative. Influenza RSV and COVID-19 negative. Current vital signs temp 98.4, heart rate 71, respiratory rate 16, blood pressure 119/70 with a pulse ox of 95% on room air On 01/13/2024 patient was seen and examined on the medical floor he is alert and oriented x 3 in no apparent distress, he is still complaining of shortness of breath especially with activity and occasional cough otherwise he denies any complaints there is no fever or chills no headache or dizziness no chest pain no nausea or vomiting no abdominal pain no diarrhea no blood in the stools no burning with urination no frequency or urgency and no hematuria. Patient is scheduled for bronchoscopy today will continue to follow closely. On 01/14/2024 patient is alert and oriented x 3. Status post bronchoscopy showing thick respiratory secretions. Patient was started on IV steroids post bronchoscopy. Patient reports some improvement. Patient remains on IV antibiotics. Bronchial wash sent for culture. Patient denies chest pain. Patient denies nausea vomiting or diarrhea. Patient denies any urinary burning or frequency. Current vital signs temp 97.7, heart rate 79, respiratory rate 16, blood pressure 122/70 with a pulse ox of 97% on room air On 01/15/2024 patient was seen and examined on the medical floor he is alert and oriented x 3 in no apparent distress there is no fever or chills no headache or dizziness he is still having cough and shortness of breath with activity there is no chest pain no palpitation no nausea or vomiting no abdominal pain no diarrhea no urinary symptoms. Antibiotic were switched to cefepime, pulmonary are following, will continue to follow closely On 01/16/2024 patient is alert and oriented x 3. Patient reports improvement with shortness of breath. Patient reports he was able to cough some stuff up throughout the night. Patient remains on IV antibiotics and IV steroids. Pulmonary services are following awaiting cultures from bronchoscopy. Current vital signs temp 97.4, heart rate 78, respiratory rate 14, blood pressure 125/78 with a pulse ox of 93% on room air On 01/17/2024 patient was seen and examined on the medical floor he is alert and oriented x 3 in no apparent distress he reports improvement in his cough and shortness of breath otherwise he denies any complaints there is no fever or chills no headache or dizziness no chest pain no shortness of breath no cough no nausea or vomiting no abdominal pain no diarrhea no urinary symptoms. Patient was cleared per pulmonary for discharge he was given a prescription for prednisone and Levaquin he will follow-up with Dr. Álvarez his hosiery [facility] as outpatient Plan - Discharge Summary Discharge Rx Participant: Yes New Discharge Prescriptions: New predniSONE [Deltasone] 10 mg PO DAILY 12 Days #30 tab Levofloxacin [Levaquin] 500 mg PO DAILY 15 Days #15 tab Continue Simvastatin [Zocor] 20 mg PO HS Latanoprost/Pf [Latanoprost 0.005% Eye Drop] 1 drop BOTH EYES HS Albuterol Nebulized [Ventolin Nebulized] 2.5 mg INHALATION RT-QID PRN PRN Reason: Shortness Of Breath Fluticasone Propion/Salmeterol [Fluticasone-Salmeterol 500-50] 1 puff INHALATION RT-BID Dorzolamide-Timol 2.23%/0.68% [Cosopt] 1 drop BOTH EYES BID Omeprazole 20 mg PO DAILY Brimonidine Tartrate [Alphagan P 0.2% Ophth Soln] 1 drop BOTH EYES TID Metoprolol Succinate (ER) [Toprol XL] 25 mg PO DAILY Apixaban [Eliquis] 5 mg PO BID Discharge Medication List Latanoprost/Pf [Latanoprost 0.005% Eye Drop] 1 drop BOTH EYES HS 11/15/18 [History] Simvastatin [Zocor] 20 mg PO HS 11/15/18 [History] Albuterol Nebulized [Ventolin Nebulized] 2.5 mg INHALATION RT-QID PRN 11/17/22 [History] Brimonidine Tartrate [Alphagan P 0.2% Ophth Soln] 1 drop BOTH EYES TID 11/17/22 [History] Dorzolamide-Timol 2.23%/0.68% [Cosopt] 1 drop BOTH EYES BID 11/17/22 [History] Fluticasone Propion/Salmeterol [Fluticasone-Salmeterol 500-50] 1 puff INHALATION RT-BID 11/17/22 [History] Omeprazole 20 mg PO DAILY 11/17/22 [History] Apixaban [Eliquis] 5 mg PO BID 01/10/24 [History] Metoprolol Succinate (ER) [Toprol XL] 25 mg PO DAILY 01/10/24 [History] Levofloxacin [Levaquin] 500 mg PO DAILY 15 Days #15 tab 01/17/24 [Rx] predniSONE [Deltasone] 10 mg PO DAILY 12 Days #30 tab 01/17/24 [Rx] Follow up Appointment(s)/Referral(s): Balbina Thomas MD [STAFF PHYSICIAN] - 01/26/24 1:00 pm Maryann Randolph MD [Primary Care Provider] - 01/27/24 11:00 am Patient Instructions/Handouts: COPD (Chronic Obstructive Pulmonary Disease) (DC)
[2024-01-18] MEDS ORDERED: predniSONE 20 MG TAB PO SCH (09:00)
== END 2024-01-17 17:34 | disposition home or self-care (01) | DRG 190 ==
LOC: EC 18:00 → 5NMEDONC 20:21
PROVIDERS: ADMIT Internal Medicine; ATTEND Internal Medicine
PROC: 0B9F8ZX Drainage of Right Lower Lung Lobe, Via Natural or Artificial Opening Endoscopic, Diagnostic (ICD-10-PCS; principal; 2024-01-13 07:30)
DX: J44.1 Chronic obstructive pulmonary disease with (acute) exacerbation (principal); J15.0 Pneumonia due to Klebsiella pneumoniae; J44.0 Chronic obstructive pulmonary disease with (acute) lower respiratory infection; E78.5 Hyperlipidemia, unspecified; I10 Essential (primary) hypertension; I48.0 Paroxysmal atrial fibrillation; H91.90 Unspecified hearing loss, unspecified ear; R91.8 Other nonspecific abnormal finding of lung field; H40.9 Unspecified glaucoma; Z87.891 Personal history of nicotine dependence; Z85.828 Personal history of other malignant neoplasm of skin; Z79.01 Long term (current) use of anticoagulants; Z97.4 Presence of external hearing-aid; Z11.52 Encounter for screening for COVID-19; Z80.1 Family history of malignant neoplasm of trachea, bronchus and lung
CPT/HCPCS: 31624; 36415; 71046; 80053; 83605; 83735; 84484; 85025; 85379; 85610; 85730; 87040; 87070; 87077; 87102; 87116; 87186; 87205; 87206; 87449; 87496; 87498; 87502; 87529; 87634; 87635; 87636; 87798; 88108; 88305; 89050; 93005; 94640; 96361; 96365; 96375; 99285

== ENCOUNTER → 2024-07-06 | Day surgery (SDC) | payer MEDICARE ==
[~2024-07-06] MED LIST changes: +LIDOCAINE 1% INJ 10MG/ML (20 ML MDV) ONE
[2024-07-06] MEDS: LACTATED RINGERS 1,000 ML IV ONE (11:09)
[2024-07-06 11:21] LABS: Glucose,Whole Blood 96 mg/dL (70-110)
[2024-07-06 11:22] VITALS: TEMP 98
[2024-07-06] MEDS: LACTATED RINGERS 1,000 ML IV SCH (11:22)
[2024-07-06 12:48] VITALS: BP 128/75; PULSE 77; RESP 16
--- NOTE | 2024-07-06 14:15 | OP ---
OPERATIVE REPORT DATE OF SERVICE : PROCEDURES PERFORMED: Bronchoscopy and BAL of all the different lobes and segments. PREOPERATIVE DIAGNOSES: Bronchiectasis and recurrent Pseudomonas infection. 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 ANESTHESIA USED: IV conscious sedation. DESCRIPTION OF PROCEDURE: The patient was prepared according to the bronchoscopy protocol. O2 was applied via Ventimask, a bite block was applied, we monitored O2 saturation continuously, blood pressure was intermittently monitored, cardiac rhythm was continuously monitored. After adequate IV conscious sedation, the bronchoscope was advanced through the bite block down to the area of the vocal cords, which was noted to be spacing. Then, as we went down to the trachea, there was evidence of thick purulent secretions, I had to go in few times to suction some mucus plugs which were occluding my airways, my bronchoscope channel, and at least 4 times the bronchoscope channel had to be cleaned and flushed. Then, I was able to go down and do a complete BAL of the right upper lobe, BAL of the right middle lobe, BAL of the right lower lobe until all clean. The same thing was done on the left side. I did bronchoalveolar lavage of the left upper lobe, lingula, and left lower lobe. This was done until all the airways were cleared, and there were no more purulent secretions in the airways. The procedure was well tolerated, no complications. Fluid was sent for different diagnostic studies. MMODL / IJN: [id number] /
[2024-07-06 20:53] LABS: Appearance,BF Turbid (Clear); RBC, Body Fluid 2000 /UL (0-2000)
[2024-07-07 09:41] LABS: Nucleated Cells, Body Fluid 34000 /UL
== END ==
LOC: ORWHC2ENDO 10:39
PROVIDERS: ATTEND Internal Medicine
DX: J47.9 Bronchiectasis, uncomplicated (principal); J44.9 Chronic obstructive pulmonary disease, unspecified; J15.1 Pneumonia due to Pseudomonas; I48.91 Unspecified atrial fibrillation; K21.9 Gastro-esophageal reflux disease without esophagitis; I10 Essential (primary) hypertension; E78.5 Hyperlipidemia, unspecified; R09.1 Pleurisy; H40.9 Unspecified glaucoma; Z86.16 Personal history of COVID-19; Z87.891 Personal history of nicotine dependence; Z79.51 Long term (current) use of inhaled steroids; Z79.899 Other long term (current) drug therapy
CPT/HCPCS: 87798 ×3; 87496; 87498; 87529; 89050; 87502; 87634; 87070; 87205; 87116; 87102; 87077; 87186; 87206; 87635; 31624; J2003; J2704

== ENCOUNTER 2024-07-09 11:19 | Inpatient (IN) | payer MEDICARE ==
--- NOTE | 2024-07-09 11:37 | ED ---
General Adult HPI - General Chief complaint: Shortness of Breath Stated complaint: SOB Time Seen by Provider: 07/09/24 11:26 Source: patient, RN notes reviewed, old records reviewed Mode of arrival: ambulatory Limitations: no limitations - History of Present Illness Initial comments: 74-year-old male presents with cough and dyspnea. Cough is productive of brown sputum. Patient had bronchoscopy 4 days prior. He states the cough was initially clear but he has developed dark sputum. No fever. No chest pain. No lower extremity pain or swelling. History of COPD. The patient does not use oxygen and has had a low oxygen reading at home. - Related Data Home Medications Medication Instructions Recorded Confirmed Latanoprost/Pf [Latanoprost 0.005% 1 drop BOTH EYES HS 11/15/18 07/09/24 Eye Drop] Simvastatin [Zocor] 20 mg PO HS 11/15/18 07/09/24 Albuterol Nebulized [Ventolin 2.5 mg INHALATION RT-QID PRN 11/17/22 07/09/24 Nebulized] Brimonidine Tartrate [Alphagan P 1 drop BOTH EYES BID 11/17/22 07/09/24 0.2% Ophth Soln] Dorzolamide-Timol 2.23%/0.68% 1 drop BOTH EYES BID 11/17/22 07/09/24 [Cosopt] Omeprazole 20 mg PO DAILY 11/17/22 07/09/24 Apixaban [Eliquis] 5 mg PO BID 01/10/24 07/09/24 Metoprolol Succinate (ER) [Toprol 25 mg PO DAILY 01/10/24 07/09/24 XL] Albuterol Sulfate/Budesonide 2 puff INHALATION RT-Q4H PRN 07/05/24 07/09/24 [Airsupra 90-80 Mcg Inhaler] Fluticasone Propion/Salmeterol 1 puff INHALATION RT-BID 07/09/24 07/09/24 [Advair 500-50 Diskus] Allergies Allergy/AdvReac Type Severity Reaction Status Date / Time No Known Allergies Allergy Verified 07/09/24 11:39 Review of Systems ROS Statement: Those systems with pertinent positive or pertinent negative responses have been documented in the HPI. ROS Other: All systems not noted in ROS Statement are negative. Past Medical History Past Medical History: Atrial Fibrillation, Asthma, Cancer, COPD, Eye Disorder, Hearing Disorder / Deafness, Hyperlipidemia, Hypertension, Respiratory Disorder Additional Past Medical History / Comment(s): right eye glaucoma, uses sadi hearing aids, squamous cell skin ca, "bacterial lung infection" - dealing w/ it x 2yrs History of Any Multi-Drug Resistant Organisms: None Reported Past Surgical History: Tonsillectomy Additional Past Surgical History / Comment(s): squamous cell skin ca removed left forearm; basal cell ca removed Lt. shoulder and Lt. jaw(within last weeks); colonoscopy; bronchoscopy Past Anesthesia/Blood Transfusion Reactions: No Reported Reaction, Family History of Problems w/ Anesthesia Additional Past Anesthesia/Blood Transfusion Reaction / Comment(s): sister went into cardiac arrest after anesthesia for watchman procedure Past Psychological History: No Psychological Hx Reported Smoking Status: Former smoker - Past Family History Sister(s) Family Medical History: Cancer Additional Family Medical History / Comment(s): twin sister -multiple myeloma Brother(s) Family Medical History: Cancer Additional Family Medical History / Comment(s): lung cancer Mother Family Medical History: Cancer Additional Family Medical History / Comment(s): lung cancer General Exam Limitations: no limitations General appearance: alert, in no apparent distress Head exam: Present: atraumatic, normocephalic Eye exam: Present: normal appearance, PERRL Respiratory exam: Present: wheezes, decreased breath sounds. Absent: respiratory distress Cardiovascular Exam: Present: regular rate, normal rhythm GI/Abdominal exam: Present: soft. Absent: distended, tenderness Extremities exam: Present: normal inspection, normal capillary refill. Absent: pedal edema, calf tenderness Neurological exam: Present: alert, oriented X3, CN II-XII intact. Absent: motor sensory deficit Psychiatric exam: Present: normal affect, normal mood Skin exam: Present: warm, dry, intact Course Vital Signs 07/09/24 07/09/24 07/09/24 11:21 11:37 11:54 Temperature 98.2 F Pulse Rate 94 92 89 Respiratory 17 22 Rate Blood Pressure 122/77 O2 Sat by Pulse 95 95 Oximetry 07/09/24 07/09/24 07/09/24 12:19 12:32 13:02 Temperature Pulse Rate 84 94 92 Respiratory 18 20 Rate Blood Pressure 107/66 122/74 O2 Sat by Pulse 92 L 96 Oximetry Medical Decision Making - Medical Decision Making Was pt. sent in by a medical professional or institution (, [facility], [employer], urgent care, hospital, or [facility]...) When possible be specific @ -No Did you speak to anyone other than the patient for history (EMS, parent, family, police, friend...)? What history was obtained from this source @ -No Did you review nursing and triage notes (agree or disagree)? Why? @ -I reviewed and agree with nursing and triage notes Were old charts reviewed (outside hosp., previous admission, EMS record, old EK G, old radiological studies, urgent care reports/EKG's, [facility] records)? Report findings @ -No old charts were reviewed Differential Dyspnea: Coronary syndrome, arrhythmia, tamponade, asthma, COPD, pulmonary embolism, pneumonia, pneumothorax, pulmonary effusion, anaphylaxis, diabetic ketoacidosis, flailed chest, pulmonary contusion, diaphragmatic rupture, anemia, neuromuscular, this is not meant to be an all-inclusive list. EKG interpreted by me (3pts min.). @Sinus rhythm rate of 91, NJ interval 170, QRS duration 84, QTc [address] segment elevation. X-rays interpreted by me (1pt min.). @ -[Chest x-ray negative for consolidated pneumonia or pneumothorax, question pulmonary edema CT interpreted by me (1pt min.). @ -None done U/S interpreted by me (1pt. min.). @ -None done What testing was considered but not performed or refused? (CT, X-rays, U/S, labs)? Why? @ -None What meds were considered but not given or refused? Why? @ -None Did you discuss the management of the patient with other professionals (professionals i.e. , [facility], [employer], lab, RT, psych nurse, manager social responsibility, cover cutter, teacher, dispatch officer, case fitter)? Give summary @ -Dr. London Was smoking cessation discussed for >3mins.? @ -No Was critical care preformed (if so, how long)? @ -No Were there social determinants of health that impacted care today? How? (Homelessness, low income, unemployed, alcoholism, drug addiction, transportation, low edu. Level, literacy, decrease access to med. care, nursing home, rehab)? @ -No Was there de-escalation of care discussed even if they declined (Discuss DNR or withdrawal of care, Hospice)? DNR status @ -No What co-morbidities impacted this encounter? (DM, HTN, Smoking, COPD, CAD, Cancer, CVA, ARF, Chemo, Hep., AIDS, mental health diagnosis, sleep apnea, morbid obesity)? @ -COPD Was patient admitted / discharged? Hospital course, mention meds given and route, prescriptions, significant lab abnormalities, going to OR and other pertinent info. @ -74-year-old male with increased cough and dyspnea, patient has history of COPD, recent bronchoscopy. Patient is wheezing with low oxygenation. Treated for COPD exacerbation. Given the leukocytosis he is covered for concurrent developing pneumonia or tracheobronchitis. Admitted to Dr. London with pulmonology on consult. Undiagnosed new problem with uncertain prognosis? @ -No Drug Therapy requiring intensive monitoring for toxicity (Heparin, Nitro, Insulin, Cardizem)? @ -No Were any procedures done? @ -No Diagnosis/symptom? @ -[COPD exacerbation Acute, or Chronic, or Acute on Chronic? @ -Default Uncomplicated (without systemic symptoms) or Complicated (systemic symptoms)? @ -Default Side effects of treatment? @ -No Exacerbation, Progression, or Severe Exacerbation? @ -No Poses a threat to life or bodily function? How? (Chest pain, [place], [place], pneumonia, PE, COPD, DKA, ARF, appy, cholecystitis, CVA, Diverticulitis, Homicidal, Suicidal, threat to staff... and all critical care pts) @ -Yes, respiratory failure - Lab Data Result diagrams: 07/09/24 11:43 07/09/24 11:43 Lab Results 07/09/24 07/09/24 07/09/24 Range/Units 11:43 11:43 11:43 WBC 17.68 H (4.50-10.00) 10*3/uL RBC 5.37 (4.40-5.60) 10*6/uL Hgb 15.6 (13.0-17.0) g/dL Hct 46.6 (39.6-50.0) % MCV 86.8 (80.0-97.0) fL MCH 29.1 (27.0-32.0) pg MCHC 33.5 (32.0-37.0) g/dL Plt Count 247 (140-440) 10*3/uL MPV 9.2 L (9.5-12.2) fL Immature Gran % (Auto) 0.7 % Neutrophils % 77.0 % Lymphocytes % 10.5 % Monocytes % 9.5 % Eosinophils % 2.0 % Basophils % 0.3 % Immature Gran # 0.12 H (0.00-0.04) 10*3/uL Neutrophils # 13.61 H (1.80-7.70) 10*3/uL Lymphocytes # 1.86 (0.90-5.00) 10*3/uL Monocytes # 1.68 H (0.20-1.00) 10*3/uL Eosinophils # 0.35 (0.04-0.35) 10*3/uL Basophils # 0.06 (0.00-0.10) 10*3/uL PT 10.7 (10.0-12.5) sec INR 1.0 (<1.2) APTT 26.8 (22.0-30.0) sec Sodium 136 L (137-145) mmol/L Potassium 4.1 (3.5-5.1) mmol/L Chloride 101 (98-107) mmol/L Carbon Dioxide 26 (22-30) mmol/L Anion Gap 9 mmol/L BUN 20 (9-20) mg/dL Creatinine 0.80 (0.66-1.25) mg/dL Est GFR (CKD-EPI)AfAm >90 (>60 ml/min/1.73 sqM) Est GFR (CKD-EPI)NonAf 90 (>60 ml/min/1.73 sqM) Glucose 82 (74-99) mg/dL Plasma Lactic Acid Ramu (0.7-2.0) mmol/L Calcium 9.3 (8.4-10.2) mg/dL Magnesium 2.1 (1.6-2.3) mg/dL Total Bilirubin 1.2 (0.2-1.3) mg/dL AST 31 (17-59) U/L ALT 37 (4-49) U/L Alkaline Phosphatase 96 (38-126) U/L Troponin I (0.000-0.034) ng/mL NT-Pro-B Natriuret Pep 203 pg/mL Total Protein 6.8 (6.3-8.2) g/dL Albumin 3.7 (3.5-5.0) g/dL 07/09/24 07/09/24 Range/Units 11:43 11:43 WBC (4.50-10.00) 10*3/uL RBC (4.40-5.60) 10*6/uL Hgb (13.0-17.0) g/dL Hct (39.6-50.0) % MCV (80.0-97.0) fL MCH (27.0-32.0) pg MCHC (32.0-37.0) g/dL Plt Count (140-440) 10*3/uL MPV (9.5-12.2) fL Immature Gran % (Auto) % Neutrophils % % Lymphocytes % % Monocytes % % Eosinophils % % Basophils % % Immature Gran # (0.00-0.04) 10*3/uL Neutrophils # (1.80-7.70) 10*3/uL Lymphocytes # (0.90-5.00) 10*3/uL Monocytes # (0.20-1.00) 10*3/uL Eosinophils # (0.04-0.35) 10*3/uL Basophils # (0.00-0.10) 10*3/uL PT (10.0-12.5) sec INR (<1.2) APTT (22.0-30.0) sec Sodium (137-145) mmol/L Potassium (3.5-5.1) mmol/L Chloride (98-107) mmol/L Carbon Dioxide (22-30) mmol/L Anion Gap mmol/L BUN (9-20) mg/dL Creatinine (0.66-1.25) mg/dL Est GFR (CKD-EPI)AfAm (>60 ml/min/1.73 sqM) Est GFR (CKD-EPI)NonAf (>60 ml/min/1.73 sqM) Glucose (74-99) mg/dL Plasma Lactic Acid Ramu 1.3 (0.7-2.0) mmol/L Calcium (8.4-10.2) mg/dL Magnesium (1.6-2.3) mg/dL Total Bilirubin (0.2-1.3) mg/dL AST (17-59) U/L ALT (4-49) U/L Alkaline Phosphatase (38-126) U/L Troponin I <0.012 (0.000-0.034) ng/mL NT-Pro-B Natriuret Pep pg/mL Total Protein (6.3-8.2) g/dL Albumin (3.5-5.0) g/dL Disposition Clinical Impression: Acute exacerbation of chronic obstructive pulmonary disease Disposition: ADMITTED IP TO THIS HOSP Condition: Stable Is patient prescribed a controlled substance at d/c from ED?: No Referrals: Maryann Randolph MD [Primary Care Provider] - 1-2 days Time of Disposition: 13:22
[2024-07-09] MEDS: methylPREDNISolone SOD SUCCI 125 MG/2 ML VIAL IV STA (11:45)
[2024-07-09] MEDS: IPRATROPIUM 0.5 MG/2.5 ML NEBU INHALATION STA (11:54)
[2024-07-09] MEDS: ALBUTEROL NEBULIZED 2.5 MG/3 ML INHALATION STA (11:54)
[2024-07-09 12:05] LABS: Basophils # (A) 0.06 10*3/uL (0.00-0.10); Basophils % (A) 0.3 %; Eosinophils # (A) 0.35 10*3/uL (0.04-0.35); HCT 46.6 % (39.6-50.0); HGB 15.6 g/dL (13.0-17.0); Lymphocytes # (A) 1.86 10*3/uL (0.90-5.00); Lymphocytes % (A) 10.5 %; MCH 29.1 pg (27.0-32.0); MCHC 33.5 g/dL (32.0-37.0); MCV 86.8 fL (80.0-97.0); Mean Platelet Volume 9.2 fL (9.5-12.2); Monocytes # (A) 1.68 10*3/uL (0.20-1.00); Monocytes % (A) 9.5 %; Neutrophils # (A) 13.61 10*3/uL (1.80-7.70); Platelet Count 247 10*3/uL (140-440); RBC 5.37 10*6/uL (4.40-5.60); RDW 14.7 % (11.5-14.5); WBC 17.68 10*3/uL (4.50-10.00)
[2024-07-09 12:16] LABS: ALT 37 U/L (4-49); AST 31 U/L (17-59); African American GFR (CKD) >90 (>60 ml/min/1.73 sqM); Albumin 3.7 g/dL (3.5-5.0); Alkaline Phosphatase 96 U/L (38-126); Anion Gap 9 mmol/L; Blood Urea Nitrogen 20 mg/dL (9-20); Calcium 9.3 mg/dL (8.4-10.2); Carbon Dioxide 26 mmol/L (22-30); Chloride 101 mmol/L (98-107); Glucose 82 mg/dL (74-99); Magnesium 2.1 mg/dL (1.6-2.3); Non-African American GFR(CKD) 90 (>60 ml/min/1.73 sqM); Potassium 4.1 mmol/L (3.5-5.1); Sodium 136 mmol/L (137-145); Total Bilirubin 1.2 mg/dL (0.2-1.3); Total Protein 6.8 g/dL (6.3-8.2)
--- NOTE | 2024-07-09 12:16 | XR ---
EXAMINATION TYPE: XR chest 2V DATE OF EXAM: 07/09/2024 11:55 AM COMPARISON: 01/12/2024 CLINICAL INDICATION: Male, 74 years old with history of difficulty breathing, TECHNIQUE: XR chest 2V view(s) obtained. FINDINGS: The heart size is normal. The pulmonary vasculature is prominent. Scattered increased lung markings are present. Correlate for pulmonary edema May be minimal right pleural effusion present IMPRESSION: 1. Diffuse bilateral increased lung markings. Correlate for pulmonary edema. 2. Minimal right pleural effusion may be present. [facility], , 07/09/2024 12:14 PM
[2024-07-09 12:22] LABS: NT-Pro-B-Type Natriuretic Pept 203 pg/mL
[2024-07-09 12:25] LABS: Partial Thromboplastin Time 26.8 sec (22.0-30.0); Prothrombin Time 10.7 sec (10.0-12.5)
[2024-07-09] MEDS ORDERED: NALOXONE 0.4 MG/ML 1 ML VIAL IVP PRN (13:18)
[2024-07-09] MEDS ORDERED: IPRATROPIUM-ALBUTEROL 3 ML NEB INHALATION PRN (13:18)
[2024-07-09] MEDS: AZITHROMYCIN 500 MG TAB PO SCH (13:48)
[2024-07-09] MEDS: IPRATROPIUM-ALBUTEROL 3 ML NEB INHALATION SCH (15:16)
[2024-07-09] MEDS: methylPREDNISolone SOD SUCCI 125 MG/2 ML VIAL IV SCH (18:39)
[2024-07-10] MEDS ORDERED: LEVOFLOXACIN 750MG-D5W PMX 750 MG in DEXTROSE/WATER 1 150ML.BAG IVPB SCH (03:00)
[2024-07-10] MEDS: LEVOFLOXACIN 750MG-D5W PMX 750 MG in DEXTROSE/WATER 1 150ML.BAG IVPB SCH (05:33)
--- NOTE | 2024-07-10 06:59 | P.CNPUL ---
History of Present Illness Consult date: 07/10/24 Requesting physician: Micheal Ely Reason for consult: other (COPD) Chief complaint: Increased sputum and purulence History of present illness: Patient is a 74-year-old male with past medical history significant for severe COPD with a baseline FEV1 32% of predicted, former tobacco dependence, and frequent pneumonias/pulmonary infections. Recently, worked up for scattered pulmonary nodules and increased interstitial densities bilaterally, which were thought to be infectious in nature. Previous bronchoscopy done 01/13/2024 isolated Pseudomonas aeruginosa and Klebsiella oxytoca, as well as, Mycobacterium chimera intracellular group. Cytology from [place] unremarkable for malignant cells. He has been following with Dr. Ma in the pulmonary office. Previously maintained on a prolonged course of quinolones. More recently, Dr. Ma performed a follow-up bronchoscopy with BAL on 07/06/24, preliminary cultures revealing gram-negative bacilli. Starting Wednesday, he developed increased cough with copious sputum production which is brown in color. Following this, developed increased work of breathing. Presented the emergency department yesterday morning for evaluation. Chest x-ray showing diffuse bilateral interstitial infiltrates and possible right-sided pleural ef fusion. CBC: WBC count 17.7, hemoglobin 15.6, platelets 247. BMP: Sodium 136, potassium 4.1, chloride 101, serum bicarb 26, BUN 20, creatinine 0.8, glucose 82. LFTs not elevated. Lactic 1.3. Troponin was less than 0.012. NT proBNP 203. Patient currently being evaluated on 6 N. He is resting comfortably in bed. On room air. Reports shortness of breath, mostly with exertion. Increased cough and sputum purulence. Denies any measured fevers. Denies any chest pain. Denies any hemoptysis. Vital signs are stable. Review of Systems Constitutional: Reports fatigue, Reports weight loss, Denies chills, Denies fever, Denies night sweats, Denies poor appetite, Denies weight gain Ears, nose, mouth and throat: Denies epistaxis, Denies headache, Denies nasal congestion, Denies nasal discharge, Denies post-nasal drip, Denies sinus pain, Denies sinus pressure, Denies sore throat, Denies voice changes Cardiovascular: Denies chest pain, Denies leg edema, Denies lightheadedness, Denies orthopnea, Denies palpitations, Denies paroxysmal nocturnal dyspnea, Denies syncope Respiratory: Reports as per HPI Gastrointestinal: Denies abdominal pain, Denies constipation, Denies diarrhea, Denies nausea, Denies vomiting Genitourinary: Denies dysuria Musculoskeletal: Denies limitation of motion Integumentary: Denies rash Neurological: Denies seizures, Denies syncope Psychiatric: Denies anxiety, Denies depression Past Medical History Past Medical History: Atrial Fibrillation, Asthma, Cancer, COPD, Eye Disorder, Hearing Disorder / Deafness, Hyperlipidemia, Hypertension, Respiratory Disorder Additional Past Medical History / Comment(s): right eye glaucoma, uses sadi hearing aids, squamous cell skin ca, "bacterial lung infection" - dealing w/ it x 2yrs History of Any Multi-Drug Resistant Organisms: None Reported Past Surgical History: Tonsillectomy Additional Past Surgical History / Comment(s): squamous cell skin ca removed left forearm; basal cell ca removed Lt. shoulder and Lt. jaw(within last weeks); colonoscopy; bronchoscopy Past Anesthesia/Blood Transfusion Reactions: No Reported Reaction, Family History of Problems w/ Anesthesia Additional Past Anesthesia/Blood Transfusion Reaction / Comment(s): sister went into cardiac arrest after anesthesia for watchman procedure Past Psychological History: No Psychological Hx Reported Smoking Status: Former smoker Past Alcohol Use History: Rare Additional Past Alcohol Use History / Comment(s): quit smoking in 2005- smoked between 1 1/2 to 2ppd for about 40 yrs Past Drug Use History: None Reported - Past Family History Sister(s) Family Medical History: Cancer Additional Family Medical History / Comment(s): twin sister -multiple myeloma Brother(s) Family Medical History: Cancer Additional Family Medical History / Comment(s): lung cancer Mother Family Medical History: Cancer Additional Family Medical History / Comment(s): lung cancer Medications and Allergies Home Medications Medication Instructions Recorded Confirmed Type Latanoprost/Pf [Latanoprost 0.005% 1 drop BOTH EYES HS 11/15/18 07/09/24 History Eye Drop] Simvastatin [Zocor] 20 mg PO HS 11/15/18 07/09/24 History Albuterol Nebulized [Ventolin 2.5 mg INHALATION RT-QID PRN 11/17/22 07/09/24 History Nebulized] Brimonidine Tartrate [Alphagan P 1 drop BOTH EYES BID 11/17/22 07/09/24 History 0.2% Ophth Soln] Dorzolamide-Timol 2.23%/0.68% 1 drop BOTH EYES BID 11/17/22 07/09/24 History [Cosopt] Omeprazole 20 mg PO DAILY 11/17/22 07/09/24 History Apixaban [Eliquis] 5 mg PO BID 01/10/24 07/09/24 History Metoprolol Succinate (ER) [Toprol 25 mg PO DAILY 01/10/24 07/09/24 History XL] Albuterol Sulfate/Budesonide 2 puff INHALATION RT-Q4H PRN 07/05/24 07/09/24 History [Airsupra 90-80 Mcg Inhaler] Fluticasone Propion/Salmeterol 1 puff INHALATION RT-BID 07/09/24 07/09/24 History [Advair 500-50 Diskus] Allergies Allergy/AdvReac Type Severity Reaction Status Date / Time No Known Allergies Allergy Verified 07/09/24 11:39 Physical Exam Vitals: Vital Signs Temp Pulse Pulse Resp BP BP Pulse Ox 07/10/24 01:20 97.5 F L 93 18 125/74 98 07/09/24 20:02 88 07/09/24 19:49 88 07/09/24 18:54 97.6 F 89 18 130/80 97 07/09/24 17:46 98.4 F 88 20 117/70 98 07/09/24 15:38 83 20 118/77 95 07/09/24 15:26 84 07/09/24 15:16 89 07/09/24 13:02 92 20 122/74 96 07/09/24 12:32 94 18 107/66 92 L 07/09/24 12:19 84 07/09/24 11:54 89 07/09/24 11:37 92 22 95 07/09/24 11:21 98.2 F 94 17 122/77 95 Intake and Output 07/09/24 07/09/24 07/10/24 14:59 22:59 06:59 Intake Total 591 Balance 591 Intake: Oral 591 Other: # Voids 2 Weight 63.503 kg 63.503 kg GENERAL EXAM: Alert, 74-year-old male, on room air, comfortable in no apparent distress. HEAD: Normocephalic and atraumatic EYES: Normal reaction of pupils, equal size. NOSE: Clear with pink turbinates. THROAT: No erythema or exudates. NECK: No masses, no JVD. CHEST: No chest wall deformity. LUNGS: Equal air entry with no crackles, wheeze, rhonchi or dullness. No convers ational dyspnea or accessory muscle use. Congested cough noted CVS: S1 and S2 normal with no audible murmur, regular rhythm. No extra heart sounds ABDOMEN: No hepatosplenomegaly, active bowel sounds, no guarding or rigidity. SPINE: No scoliosis or deformity SKIN: No rashes CENTRAL NERVOUS SYSTEM: No focal deficits, tone is normal in all 4 extremities. EXTREMITIES: There is no peripheral edema, clubbing, or cyanosis. Peripheral pulses are intact. Results - Laboratory Findings CBC and BMP: 07/09/24 11:43 07/09/24 11:43 PT/INR, D-dimer PT 10.7 sec (10.0-12.5) 07/09/24 11:43 INR 1.0 (<1.2) 07/09/24 11:43 Abnormal lab findings: Abnormal Labs 07/09/24 07/09/24 11:43 11:43 WBC 17.68 H MPV 9.2 L Immature Gran # 0.12 H Neutrophils # 13.61 H Monocytes # 1.68 H Sodium 136 L - Diagnostic Findings Chest x-ray: image reviewed Assessment and Plan Assessment: Acute COPD exacerbation, most recent bronchoscopy with BAL from 07/06/24 isolat ing gram-negative bacilli Acute on chronic dyspnea, secondary to above Acute leukocytosis Frequent pulmonary infection/pneumonia, with history of bronchoscopy done 01/13/2024 isolating pseudomonas aeruginosa/Klebsiella oxytoca, as well as, Mycobacterium chimera intracellular group History bilateral pulmonary nodular opacities, with reticular infiltrates, and mediastinal/hilar lymphadenopathy, follows up on an outpatient basis Severe COPD, with a baseline FEV1 32% of predicted Former tobacco dependence, quit in 2005 History of hyperlipidemia Hypertension History of paroxysmal atrial fibrillation, normally anticoagulated on Eliquis History of localized squamous cell skin cancer, 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 Continue DuoNebs [id number], as well as, IV Solu- Medrol Continue empiric antibiotics Check procalcitonin Possible candidate for triple antibiotic therapy for previously isolated MAC organism Case to be discussed with my supervising physician, Dr. Quiroz I have personally seen and examined the patient, performed the documentation and the assessment and plan as written. Number of minutes spent on the visit:20 This dictation was produced using [employer] dictation software please excuse gra mmatical errors Time with Patient: Greater than 30
[2024-07-10] MEDS: SYMBICORT 160-4.5 MCG INHALER INHALATION SCH (08:48)
[2024-07-10] MEDS: METOPROLOL SUCCINATE (ER) 25 MG TAB.ER.24H PO SCH (14:07)
[2024-07-10] MEDS: APIXABAN 5 MG TAB PO SCH (14:08)
[2024-07-10] MEDS: DORZOLAMIDE-TIMOLOL 2.23%/0.68 10ML BTL BOTH EYES SCH (14:09)
[2024-07-10] MEDS: BRIMONIDINE TARTRATE 0.2% DROPS 5 ML BTL BOTH EYES SCH (14:09)
--- NOTE | 2024-07-10 18:06 | P.HPIM ---
History of Present Illness H&P Date: 07/10/24 Jovon Oconnor, is a 74-year-old male who presented to [facility] emergency room with a chief complaint of worsening shortness of breath, cough with brownish sputum production He was evaluated in the emergency room vital examination on presentation revealed a temperature of 98.2 pulse 94 respiration 17 blood pressure 122/77 pulse ox 95% on room air Laboratory data revealed a white blood count of 17.68 hemoglobin 15.6 platelet count 247 sodium 136 potassium 4.1 chloride 101 CO2 26 BUN 20 creatinine 0.8 Testing in the emergency room revealed chest x-ray done in the emergency room revealed diffuse bilateral increased lung markings and minimal right pleural effusion Patient was admitted to medical floor for further evaluation and treatment Past Medical History Past Medical History: Atrial Fibrillation, Asthma, Cancer, COPD, Eye Disorder, Hearing Disorder / Deafness, Hyperlipidemia, Hypertension, Respiratory Disorder Additional Past Medical History / Comment(s): right eye glaucoma, uses sadi hearing aids, squamous cell skin ca, "bacterial lung infection" - dealing w/ it x 2yrs History of Any Multi-Drug Resistant Organisms: None Reported Past Surgical History: Tonsillectomy Additional Past Surgical History / Comment(s): squamous cell skin ca removed left forearm; basal cell ca removed Lt. shoulder and Lt. jaw(within last week s); colonoscopy; bronchoscopy Past Anesthesia/Blood Transfusion Reactions: No Reported Reaction, Family History of Problems w/ Anesthesia Additional Past Anesthesia/Blood Transfusion Reaction / Comment(s): sister went into cardiac arrest after anesthesia for watchman procedure Past Psychological History: No Psychological Hx Reported Smoking Status: Former smoker Past Alcohol Use History: Rare Additional Past Alcohol Use History / Comment(s): quit smoking in 2005- smoked between 1 1/2 to 2ppd for about 40 yrs Past Drug Use History: None Reported - Past Family History Sister(s) Family Medical History: Cancer Additional Family Medical History / Comment(s): twin sister -multiple myeloma Brother(s) Family Medical History: Cancer Additional Family Medical History / Comment(s): lung cancer Mother Family Medical History: Cancer Additional Family Medical History / Comment(s): lung cancer Medications and Allergies Home Medications Medication Instructions Recorded Confirmed Type Latanoprost/Pf [Latanoprost 0.005% 1 drop BOTH EYES HS 11/15/18 07/09/24 History Eye Drop] Simvastatin [Zocor] 20 mg PO HS 11/15/18 07/09/24 History Albuterol Nebulized [Ventolin 2.5 mg INHALATION RT-QID PRN 11/17/22 07/09/24 History Nebulized] Brimonidine Tartrate [Alphagan P 1 drop BOTH EYES BID 11/17/22 07/09/24 History 0.2% Ophth Soln] Dorzolamide-Timol 2.23%/0.68% 1 drop BOTH EYES BID 11/17/22 07/09/24 History [Cosopt] Omeprazole 20 mg PO DAILY 11/17/22 07/09/24 History Apixaban [Eliquis] 5 mg PO BID 01/10/24 07/09/24 History Metoprolol Succinate (ER) [Toprol 25 mg PO DAILY 01/10/24 07/09/24 History XL] Albuterol Sulfate/Budesonide 2 puff INHALATION RT-Q4H PRN 07/05/24 07/09/24 History [Airsupra 90-80 Mcg Inhaler] Fluticasone Propion/Salmeterol 1 puff INHALATION RT-BID 07/09/24 07/09/24 History [Advair 500-50 Diskus] Allergies Allergy/AdvReac Type Severity Reaction Status Date / Time No Known Allergies Allergy Verified 07/09/24 11:39 Physical Exam Vitals: Vital Signs Temp Pulse Pulse Resp BP BP Pulse Ox 07/10/24 09:02 98 07/10/24 08:49 104 H 07/10/24 07:00 97.4 F L 87 18 125/78 96 07/10/24 01:20 97.5 F L 93 18 125/74 98 07/09/24 20:02 88 07/09/24 19:49 88 07/09/24 18:54 97.6 F 89 18 130/80 97 07/09/24 17:46 98.4 F 88 20 117/70 98 07/09/24 15:38 83 20 118/77 95 07/09/24 15:26 84 07/09/24 15:16 89 07/09/24 13:02 92 20 122/74 96 07/09/24 12:32 94 18 107/66 92 L 07/09/24 12:19 84 07/09/24 11:54 89 07/09/24 11:37 92 22 95 07/09/24 11:21 98.2 F 94 17 122/77 95 Intake and Output 07/09/24 07/10/24 07/10/24 22:59 06:59 14:59 Intake Total 591 Balance 591 Intake: Oral 591 Other: # Voids 2 2 Weight 63.503 kg In general patient is alert and oriented x 3 in no distress HEENT head normocephalic and atraumatic Neck is supple no JVD no goiter no lymphadenopathy no carotid bruit Chest examination reveals a scattered crackles in both lung reed no wheezing Cardiac exam reveals regular heart sounds S1 and S2 no gallops no murmurs Abdomen is soft nontender no organomegaly with normal bowel sounds Extremity exam reveals no edema no cyanosis or clubbing Neurological examination reveals no gross focal deficits Results CBC & Chem 7: 07/09/24 11:43 07/09/24 11:43 Labs: Abnormal Lab Results - Last 24 Hours (Table) 07/09/24 07/09/24 Range/Units 11:43 11:43 WBC 17.68 H (4.50-10.00) 10*3/uL MPV 9.2 L (9.5-12.2) fL Immature Gran # 0.12 H (0.00-0.04) 10*3/uL Neutrophils # 13.61 H (1.80-7.70) 10*3/uL Monocytes # 1.68 H (0.20-1.00) 10*3/uL Sodium 136 L (137-145) mmol/L Assessment and Plan Plan: Acute exacerbation of chronic obstructive pulmonary disease Leukocytosis on presentation rule out pneumonia Underlying history of hypertension Underlying history of hyperlipidemia Underlying history of paroxysmal atrial fibrillation At this time patient was seen and examined Home medications reviewed and reordered Labs and x-ray reviewed pulmonary consultation requested Patient was started on IV antibiotic Levaquin on presentation to emergency room He is receiving inhaled bronchodilators, sputum for culture and Gram stain was ordered Will follow closely
[2024-07-10] MEDS: LATANOPROST 0.005% OPHTH DROPS 2.5 ML BTL BOTH EYES SCH (21:08)
[2024-07-10] MEDS: ATORVASTATIN 10 MG TAB PO SCH (21:08)
[2024-07-11] MEDS: PANTOPRAZOLE 40 MG TABLET PO SCH (06:15)
[2024-07-11 07:58] VITALS: BP 110/70; RESP 16; TEMP 97.4
[2024-07-11 08:31] LABS: ALT 34 U/L (10-49); AST 30 U/L (14-35); Albumin 3.3 g/dL (3.8-4.9); Albumin/Globulin Ratio 1.32 Ratio (1.60-3.17); Alkaline Phosphatase 75 U/L (41-126); BUN/Creat Ratio 24.12 Ratio (12.00-20.00); Blood Urea Nitrogen 19.3 mg/dL (9.0-27.0); Calcium 9.2 mg/dL (8.7-10.3); Carbon Dioxide 24.3 mmol/L (21.6-31.8); Chloride 107 mmol/L (96-109); Globulin 2.5 g/dL (1.6-3.3); Glucose 135 mg/dL (70-110); Potassium 4.3 mmol/L (3.5-5.5); Sodium 142 mmol/L (135-145); Total Bilirubin 0.2 mg/dL (0.3-1.2); Total Protein 5.8 g/dL (6.2-8.2)
[2024-07-11 09:03] LABS: Basophils # (A) 0.01 X 10*3/uL (0.00-0.10); Basophils % (A) 0.1 %; Eosinophils # (A) 0 X 10*3/uL (0.04-0.35); Eosinophils % (A) 0 %; HCT 43.3 % (39.6-50.0); HGB 13.8 g/dL (13.0-17.0); Lymphocytes # (A) 0.81 X 10*3/uL (0.90-5.00); Lymphocytes % (A) 7.5 %; MCH 27.9 pg (27.0-32.0); MCHC 31.9 g/dL (32.0-37.0); MCV 87.7 FL (80.0-97.0); Mean Platelet Volume 10.1 FL (9.5-12.2); Monocytes # (A) 0.27 X 10*3/uL (0.20-1.00); Monocytes % (A) 2.5 %; NRBC Per 100 WBC 0 X 10*3/uL (0.00-0.01); Neutrophils # (A) 9.64 X 10*3/uL (1.80-7.70); Neutrophils % (A) 89.2 %; Platelet Count 224 X 10*3/uL (140-440); RBC 4.94 X 10*6/uL (4.40-5.60); RDW 14.6 % (11.5-14.5); WBC 10.81 X 10*3/uL (4.50-10.00)
--- NOTE | 2024-07-11 09:25 | P.PN ---
Subjective Progress Note Date: 07/11/24 Jovon Oconnor, is a 74-year-old male who presented to [facility] emergency room with a chief complaint of worsening shortness of breath, cough with brownish sputum production He was evaluated in the emergency room vital examination on presentation revealed a temperature of 98.2 pulse 94 respiration 17 blood pressure 122/77 pulse ox 95% on room air Laboratory data revealed a white blood count of 17.68 hemoglobin 15.6 platelet count 247 sodium 136 potassium 4.1 chloride 101 CO2 26 BUN 20 creatinine 0.8 Testing in the emergency room revealed chest x-ray done in the emergency room re vealed diffuse bilateral increased lung markings and minimal right pleural effusion Patient was admitted to medical floor for further evaluation and treatment On 07/11/2024 patient is alert and oriented x 3. Patient reports improvement with shortness of breath. Sputum culture currently pending. Patient is currently on p.o. Levaquin. Awaiting further recommendations from pulmonary services. Patient denies chest pain or shortness of breath. Patient denies nausea vomiting or diarrhea. Patient denies any urinary burning or frequency Objective - Vital Signs Vital signs: Vital Signs Temp 97.4 F L 07/11/24 07:00 Pulse 76 07/11/24 09:00 Resp 16 07/11/24 07:00 BP 110/70 07/11/24 07:00 Pulse Ox 94 L 07/11/24 08:50 FiO2 Intake & Output 07/10/24 07/11/24 07/11/24 18:59 06:59 18:59 Intake Total 461 Balance 461 Intake: Oral 461 Other: # Voids 3 3 - Exam In general patient is alert and oriented x 3 in no distress HEENT head normocephalic and atraumatic Neck is supple no JVD no goiter no lymphadenopathy no carotid bruit Chest examination reveals a scattered crackles in both lung reed no wheezing Cardiac exam reveals regular heart sounds S1 and S2 no gallops no murmurs Abdomen is soft nontender no organomegaly with normal bowel sounds Extremity exam reveals no edema no cyanosis or clubbing Neurological examination reveals no gross focal deficits - Labs CBC & Chem 7: 07/11/24 04:15 07/11/24 04:15 Labs: Abnormal Lab Results - Last 24 Hours (Table) 07/11/24 07/11/24 Range/Units 04:15 04:15 WBC 10.81 H (4.50-10.00) X 10*3/uL MCHC 31.9 L (32.0-37.0) g/dL RDW 14.6 H (11.5-14.5) % Immature Gran # 0.08 H (0.00-0.04) X 10*3/uL Neutrophils # 9.64 H (1.80-7.70) X 10*3/uL Lymphocytes # 0.81 L (0.90-5.00) X 10*3/uL Eosinophils # 0 L (0.04-0.35) X 10*3/uL BUN/Creatinine Ratio 24.12 H (12.00-20.00) Ratio Glucose 135 H (70-110) mg/dL Total Bilirubin 0.2 L (0.3-1.2) mg/dL Total Protein 5.8 L (6.2-8.2) g/dL Albumin 3.3 L (3.8-4.9) g/dL Albumin/Globulin Ratio 1.32 L (1.60-3.17) Ratio Microbiology - Last 24 Hours (Table) 07/09/24 13:44 Blood Culture - Preliminary Blood 07/09/24 15:20 Gram Stain - Preliminary Sputum Assessment and Plan Plan: Acute exacerbation of chronic obstructive pulmonary disease Leukocytosis on presentation rule out pneumonia Underlying history of hypertension Underlying history of hyperlipidemia Underlying history of paroxysmal atrial fibrillation At this time patient was seen and examined Home medications reviewed and reordered Labs and x-ray reviewed pulmonary consultation requested Patient was started on IV antibiotic Levaquin on presentation to emergency room He is receiving inhaled bronchodilators, sputum for culture and Gram stain was o rdered Will follow closely
[2024-07-11] MEDS: predniSONE 10 MG TAB PO SCH (10:17)
--- NOTE | 2024-07-11 11:58 | P.PN ---
Subjective Progress Note Date: 07/11/24 Patient is a 74-year-old male with past medical history significant for severe COPD with a baseline FEV1 32% of predicted, former tobacco dependence, and frequent pneumonias/pulmonary infections. Recently, worked up for scattered pulmonary nodules and increased interstitial densities bilaterally, which were thought to be infectious in nature. Previous bronchoscopy done 01/13/2024 isolated Pseudomonas aeruginosa and Klebsiella oxytoca, as well as, Mycobacterium chimera intracellular group. Cytology from [place] unremarkable for malignant cells. He has been following with Dr. Ma in the pulmonary office. Previously maintained on a prolonged course of quinolones. More recently, Dr. Ma performed a follow-up bronchoscopy with BAL on 07/06/24, preliminary cultures revealing gram-negative bacilli. Starting Wednesday, he developed increased cough with copious sputum production which is brown in color. Following this, developed increased work of breathing. Presented the emergency department yesterday morning for evaluation. Chest x-ray showing diffuse bilateral interstitial infiltrates and possible right-sided pleural effusion. CBC: WBC count 17.7, hemoglobin 15.6, platelets 247. BMP: Sodium 136, potassium 4.1, chloride 101, serum bicarb 26, BUN 20, creatinine 0.8, glucose 82. LFTs not elevated. Lactic 1.3. Troponin was less than 0.012. NT proBNP 203. Patient currently being evaluated on 6 N. He is resting comfortably in bed. On room air. Reports shortness of breath, mostly with exertion. Increased cough and sputum purulence. Denies any measured fevers. Denies any chest pain. Denies any hemoptysis. Vital signs are stable. The patient is seen today July 11, 2024 in follow-up on the regular medical floor. He is currently sitting up in bed. Awake and alert in no acute distress. Maintaining good O2 saturations in the 90s on 2 L/min per nasal cannula. He is afebrile. Hemodynamically stable. Blood and sputum cultures revealing no growth to date. White count 10.8. Hemoglobin 13.8. Platelets 224. Sodium 142. Potassium 4.3. Bicarb 24. BUN 19. Creatinine 0.8. Glucose 135. Procalcitonin negative at 0.11. Medrol. Antibiotics in the form of IV Levaquin. Anticoagulated with Eliquis Objective - Vital Signs Vital signs: Vital Signs Temp 97.4 F L 07/11/24 07:00 Pulse 76 07/11/24 09:00 Resp 16 07/11/24 07:00 BP 110/70 07/11/24 07:00 Pulse Ox 94 L 07/11/24 08:50 FiO2 Intake & Output 07/10/24 07/11/24 07/11/24 18:59 06:59 18:59 Intake Total 461 476 Balance 461 476 Intake: Oral 461 476 Other: # Voids 3 3 - Exam GENERAL EXAM: Alert, active, 74-year-old male, on 2 L/min per nasal cannula, comfortable in no apparent distress. HEAD: Normocephalic. EYES: Normal reaction of pupils, equal size. NOSE: Clear with pink turbinates. THROAT: No erythema or exudates. NECK: No masses, no JVD. CHEST: No chest wall deformity. LUNGS: Equal air entry with no crackles, wheeze, rhonchi or dullness. CVS: S1 and S2 normal with no audible murmur, regular rhythm. ABDOMEN: No hepatosplenomegaly, normal bowel sounds, no guarding or rigidity. SPINE: No scoliosis or deformity SKIN: No rashes CENTRAL NERVOUS SYSTEM: No focal deficits, tone is normal in all 4 extremities. EXTREMITIES: There is no peripheral edema. No clubbing, no cyanosis. Peripheral pulses are intact. - Labs CBC & Chem 7: 07/11/24 04:15 07/11/24 04:15 Labs: Abnormal Lab Results - Last 24 Hours (Table) 07/11/24 07/11/24 Range/Units 04:15 04:15 WBC 10.81 H (4.50-10.00) X 10*3/uL MCHC 31.9 L (32.0-37.0) g/dL RDW 14.6 H (11.5-14.5) % Immature Gran # 0.08 H (0.00-0.04) X 10*3/uL Neutrophils # 9.64 H (1.80-7.70) X 10*3/uL Lymphocytes # 0.81 L (0.90-5.00) X 10*3/uL Eosinophils # 0 L (0.04-0.35) X 10*3/uL BUN/Creatinine Ratio 24.12 H (12.00-20.00) Ratio Glucose 135 H (70-110) mg/dL Total Bilirubin 0.2 L (0.3-1.2) mg/dL Total Protein 5.8 L (6.2-8.2) g/dL Albumin 3.3 L (3.8-4.9) g/dL Albumin/Globulin Ratio 1.32 L (1.60-3.17) Ratio Microbiology - Last 24 Hours (Table) 07/09/24 13:44 Blood Culture - Preliminary Blood 07/09/24 15:20 Gram Stain - Preliminary Sputum Assessment and Plan Assessment: Acute COPD exacerbation, most recent bronchoscopy with BAL from 07/06/24 isolati ng Pseudomonas aeruginosa. Remains on Levaquin Acute on chronic dyspnea, secondary to above Acute leukocytosis Frequent pulmonary infection/pneumonia, with history of bronchoscopy done 01/13/2024 isolating pseudomonas aeruginosa/Klebsiella oxytoca, as well as, Mycobacterium chimera intracellular group History bilateral pulmonary nodular opacities, with reticular infiltrates, and mediastinal/hilar lymphadenopathy, follows up on an outpatient basis Severe COPD, with a baseline FEV1 32% of predicted Former tobacco dependence, quit in 2005 History of hyperlipidemia Hypertension History of paroxysmal atrial fibrillation, normally anticoagulated on Eliquis History of localized squamous cell skin cancer, 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 Levaquin Cleared for discharge Continue his home Advair and Airsupra Follow-up in our office in 1 week I have personally seen and examined the patient, performed the documentation and the assessment and plan as written. Number of minutes spent on the visit: 10 Dictation was produced using [employer] dictation software. Please excuse any grammatical, word or spelling errors..
[2024-07-11 12:38] VITALS: PULSE 80
--- NOTE | 2024-07-11 13:21 | P.DS ---
Providers Date of admission: 07/11/24 07:44 Expected date of discharge: 07/11/24 Attending physician: Sara London Consults: 07/09/24 13:18 Consult Physician Routine Consulting Provider: Balbina Thomas Consult Reason/Comments: COPD Do you want consulting provider notified?: Yes Primary care physician: Maryann Randolph [place] [facility] Course: Discharge diagnosis Acute exacerbation of chronic obstructive pulmonary disease Leukocytosis on presentation rule out pneumonia Underlying history of hypertension Underlying history of hyperlipidemia Underlying history of paroxysmal atrial fibrillation Hospital course Jovon Oconnor, is a 74-year-old male who presented to [facility] emergency room with a chief complaint of worsening shortness of breath, cough with brownish sputum production He was evaluated in the emergency room vital examination on presentation revealed a temperature of 98.2 pulse 94 respiration 17 blood pressure 122/77 pulse ox 95% on room air Laboratory data revealed a white blood count of 17.68 hemoglobin 15.6 platelet count 247 sodium 136 potassium 4.1 chloride 101 CO2 26 BUN 20 creatinine 0.8 Testing in the emergency room revealed chest x-ray done in the emergency room revealed diffuse bilateral increased lung markings and minimal right pleural effusion Patient was admitted to medical floor for further evaluation and treatment On 07/11/2024 patient is alert and oriented x 3. Patient reports improvement with shortness of breath. Sputum culture currently pending. Patient is currently on p.o. Levaquin. Awaiting further recommendations from pulmonary services. Patient denies chest pain or shortness of breath. Patient denies nausea vomiting or diarrhea. Patient denies any urinary burning or frequency Patient has been cleared for discharge from pulmonary standpoint discussed case with infectious disease patient may be discharged on Levaquin and prednisone taper follow-up outpatient. Per nursing staff patient has been tolerating room air. Patient will be DC'd home and advised to follow-up with PCP and pulmonary services. Patient denies chest pain or shortness of breath. Patient denies nausea vomiting or diarrhea. Patient denies any urinary burning or frequency Patient Condition at Discharge: Stable Plan - Discharge Summary New Discharge Prescriptions: New Levofloxacin [Levaquin] 750 mg PO DAILY 5 Days #10 tab predniSONE 30 mg PO DAILY 12 Days #21 tab Continue Simvastatin [Zocor] 20 mg PO HS Latanoprost/Pf [Latanoprost 0.005% Eye Drop] 1 drop BOTH EYES HS Albuterol Nebulized [Ventolin Nebulized] 2.5 mg INHALATION RT-QID PRN PRN Reason: Shortness Of Breath Dorzolamide-Timol 2.23%/0.68% [Cosopt] 1 drop BOTH EYES BID Omeprazole 20 mg PO DAILY Fluticasone Propion/Salmeterol [Advair 500-50 Diskus] 1 puff INHALATION RT- BID Brimonidine Tartrate [Alphagan P 0.2% Ophth Soln] 1 drop BOTH EYES BID Metoprolol Succinate (ER) [Toprol XL] 25 mg PO DAILY Apixaban [Eliquis] 5 mg PO BID Albuterol Sulfate/Budesonide [Airsupra 90-80 Mcg Inhaler] 2 puff INHALATION RT-Q4H PRN PRN Reason: Shortness Of Breath Discharge Medication List Latanoprost/Pf [Latanoprost 0.005% Eye Drop] 1 drop BOTH EYES HS 11/15/18 [History] Simvastatin [Zocor] 20 mg PO HS 11/15/18 [History] Albuterol Nebulized [Ventolin Nebulized] 2.5 mg INHALATION RT-QID PRN 11/17/22 [History] Brimonidine Tartrate [Alphagan P 0.2% Ophth Soln] 1 drop BOTH EYES BID 11/17/22 [History] Dorzolamide-Timol 2.23%/0.68% [Cosopt] 1 drop BOTH EYES BID 11/17/22 [History] Omeprazole 20 mg PO DAILY 11/17/22 [History] Apixaban [Eliquis] 5 mg PO BID 01/10/24 [History] Metoprolol Succinate (ER) [Toprol XL] 25 mg PO DAILY 01/10/24 [History] Albuterol Sulfate/Budesonide [Airsupra 90-80 Mcg Inhaler] 2 puff INHALATION RT- Q4H PRN 07/05/24 [History] Fluticasone Propion/Salmeterol [Advair 500-50 Diskus] 1 puff INHALATION RT-BID 07/09/24 [History] Levofloxacin [Levaquin] 750 mg PO DAILY 5 Days #10 tab 07/11/24 [Rx] predniSONE 30 mg PO DAILY 12 Days #21 tab 07/11/24 [Rx] Follow up Appointment(s)/Referral(s): Balbina Thomas MD [STAFF PHYSICIAN] - 1 Week Maryann Randolph MD [Primary Care Provider] - 1-2 days Discharge Disposition: HOME SELF-CARE
[2024-07-12] MEDS ORDERED: LEVOFLOXACIN 750 MG TAB PO SCH (09:00)
== END 2024-07-11 14:40 | disposition home or self-care (01) | DRG 190 ==
LOC: EC 11:19 → 6NMEDSUR 13:19 → OBSVTOIN 07-11 07:44
PROVIDERS: ADMIT Internal Medicine; ATTEND Internal Medicine
DX: J44.1 Chronic obstructive pulmonary disease with (acute) exacerbation (principal); J13 Pneumonia due to Streptococcus pneumoniae; J44.0 Chronic obstructive pulmonary disease with (acute) lower respiratory infection; I10 Essential (primary) hypertension; I48.0 Paroxysmal atrial fibrillation; E78.5 Hyperlipidemia, unspecified; H91.90 Unspecified hearing loss, unspecified ear; Z79.01 Long term (current) use of anticoagulants; Z85.828 Personal history of other malignant neoplasm of skin; Z87.891 Personal history of nicotine dependence; Z97.4 Presence of external hearing-aid
CPT/HCPCS: 36415; 71046; 80053; 83605; 83735; 83880; 84145; 84484; 85025; 85610; 85730; 87040; 87070; 87205; 93005; 94640; 94760; 96365; 96366; 96375; 99285

== ENCOUNTER 2024-09-01 05:33 | Day surgery (SDC) | payer MEDICARE ==
[2024-09-01 06:17] VITALS: TEMP 98.6
[2024-09-01 06:23] LABS: Glucose,Whole Blood 90 mg/dL (70-110)
[2024-09-01] MEDS ORDERED: LIDOCAINE 1% INJ 10MG/ML (20 ML MDV) ONE (06:42)
[2024-09-01] MEDS ORDERED: PHENYLEPHRINE-0.9% NACL SYG 1,000 MCG/10 ML SYRINGE ONE (06:42)
[2024-09-01] MEDS ORDERED: PROPOFOL 10 MG/ML 20 ML VIAL IV ONE (06:42)
[2024-09-01] MEDS ORDERED: GLYCOPYRROLATE 0.2 MG/ML 2 ML VIAL ONE (06:42)
[2024-09-01] MEDS: LACTATED RINGERS 1,000 ML IV ONE (06:44)
--- NOTE | 2024-09-01 07:06 | P.PCN ---
Date of Procedure: 09/01/24 Procedure(s) Performed: Brief history: Patient is a pleasant 74-year-old white male scheduled for an elective upper endoscopy as well as colonoscopy as a part of evaluation of GERD/screening for prior history of colon polyps. His last colonoscopy was 5 years ago. Procedure performed: Esophagogastroduodenoscopy with biopsy Colonoscopy with snare polypectomy. Preoperative diagnosis: GERD Screening for prior history of colon polyps Anesthesia: MAC Procedure: After informed consent was obtained from the patient was brought into the endoscopy unit and IV sedation was administered by anesthesia under continuous monitoring. Initially upper endoscopy was done. The Olympus GF 160 video endoscope was inserted inserted into the mouth and esophagus intubated without any difficulty and was gradually advanced into the stomach and duodenum and carefully examined. The bulb and second part of the duodenum appeared normal. The scope was then withdrawn into the stomach adequately insufflated with air and upon careful examination the antrum and body, mild diffuse gastritis and biopsies were done from this area. Mucosa of the cardia and fundus appeared normal. The scope was then withdrawn into the esophagus. The GE junction was located at 40 cm to the incisors. It appeared regular with circumferential erythema consistent with LA grade a reflux esophagitis. Rest of the esophagus appeared normal and the patient tolerated the procedure well. At this time the patient continued to remain sedation. Initial digital rectal examination was normal. Olympus CF 160 video colonoscope was then inserted into the rectum and gradually advanced to the cecum without any difficulty. Careful examination was performed as the scope was gradually being withdrawn. The prep was excellent. The cecum, had 3 polyps measuring 7 mm, 1 cm and 1.5 cm in size all which were removed by hot snare polypectomy. Rest of the ascending colon, transverse colon, descending colon, sigmoid colon and rectum appeared normal. Scattered sigmoid diverticulosis. Retroflexion was performed in the rectum and no lesions were noted. Patient tolerated the procedure well. Impression: 1. Upper endoscopy revealed mild antral gastritis, small hiatal hernia and LA grade a reflux esophagitis 2. Colonoscopy revealed 3 polyps in the cecum 7 mm, 1 cm and 1.5 cm status post hot snare polypectomy and scattered sigmoid diverticulosis Recommendations: Findings of this examination were discussed with the patient as well as his family. He was advised to follow-up with the biopsy results. Continue with omeprazole 20 mg daily and follow antireflux measures. If the biopsy reveals adenoma he can have repeat colonoscopy in 3 years.
[2024-09-01 07:18] VITALS: RESP 16
[2024-09-01 07:48] VITALS: BP 109/77; PULSE 88
== END 2024-09-01 08:06 | disposition home or self-care (01) ==
LOC: ORWHC2ENDO 05:33
PROVIDERS: ATTEND Internal Medicine Gastroenterology
DX: Z12.11 Encounter for screening for malignant neoplasm of colon (principal); K21.00 Gastro-esophageal reflux disease with esophagitis, without bleeding; K57.30 Diverticulosis of large intestine without perforation or abscess without bleeding; K44.9 Diaphragmatic hernia without obstruction or gangrene; K29.50 Unspecified chronic gastritis without bleeding; D12.0 Benign neoplasm of cecum; K31.A0 Gastric intestinal metaplasia, unspecified; J44.89 Other specified chronic obstructive pulmonary disease; I48.91 Unspecified atrial fibrillation; Z79.51 Long term (current) use of inhaled steroids; Z79.899 Other long term (current) drug therapy; Z86.0100 Personal history of colon polyps, unspecified; Z79.01 Long term (current) use of anticoagulants; Z85.828 Personal history of other malignant neoplasm of skin
CPT/HCPCS: 88305; 45385; 43239; J2003; J2704; J2371; J1596

== ENCOUNTER 2024-09-26 14:53 | Inpatient (IN) | payer MEDICARE ==
--- NOTE | 2024-09-26 15:03 | ED ---
General Adult HPI - General Source: patient, RN notes reviewed Mode of arrival: ambulatory Limitations: no limitations <NikkiBrien - Last Filed: 09/26/24 15:02> - General Source: patient, RN notes reviewed, old records reviewed <Rylan Ribeiro - Last Filed: 09/26/24 21:58> - General Chief complaint: Upper Respiratory Infection Stated complaint: Chest pain Time Seen by Provider: 09/26/24 15:00 - History of Present Illness Initial comments: Quick note 74-year-old male presents emergency department complaint increasing dyspnea. Patient states he been dealing with a lung infection. He is followed by Dr. Chandra. States of the last few days he has significantly worsened. Patient states he is scheduled for CT of his chest to decide further treatment. (Brien Jordan) 74-year-old male with past medical history remarkable for atrial fibrillation, asthma, COPD, lung cancer, hypertension, pulmonary nodules who is currently being worked up outpatient for possible DANIEL by Dr. Chandra presents emergency department complaining of 3 to 4-day history of worsening productive cough of a colored mucus, shortness of breath, as well as right sided chest discomfort. Worse with deep inspiration and coughing. Denies any radiation of the pain. Denies any fevers. Denies nausea vomiting or diarrhea. No known sick contacts. Patient has grown Pseudomonas in the past. Presents for further evaluation at this time. Was due to have a CT of the chest sometime next week but does not think he can make it until then. (Rylan Ribeiro) - Related Data Home Medications Medication Instructions Recorded Confirmed Latanoprost/Pf [Latanoprost 0.005% 1 drop BOTH EYES HS 11/15/18 09/26/24 Eye Drop] Simvastatin [Zocor] 20 mg PO HS 11/15/18 09/26/24 Brimonidine Tartrate [Alphagan P 1 drop BOTH EYES TID 11/17/22 09/26/24 0.2% Ophth Soln] Dorzolamide-Timol 2.23%/0.68% 1 drop BOTH EYES BID 11/17/22 09/26/24 [Cosopt] Omeprazole 20 mg PO W/LUNCH 11/17/22 09/26/24 Apixaban [Eliquis] 5 mg PO BID 01/10/24 09/26/24 Metoprolol Succinate (ER) [Toprol 25 mg PO DAILY 01/10/24 09/26/24 XL] Fluticasone Propion/Salmeterol 1 puff INHALATION RT-BID 07/09/24 09/26/24 [Advair 500-50 Diskus] Famotidine [Pepcid] 20 mg PO HS PRN 09/26/24 09/26/24 Allergies Allergy/AdvReac Type Severity Reaction Status Date / Time No Known Allergies Allergy Verified 09/26/24 21:23 Review of Systems ROS Other: All systems not noted in ROS Statement are negative. <Brien Jordan - Last Filed: 09/26/24 15:02> ROS Other: All systems not noted in ROS Statement are negative. <Rylan iRbeiro - Last Filed: 09/26/24 21:58> ROS Statement: Those systems with pertinent positive or pertinent negative responses have been documented in the HPI. Review of Systems: CONST: Denies fever EYES: Denies blurry vision ENT: Denies nasal congestion C/V: Denies Chest pain RESP: Endorses exertional shortness of breath, coughing, pleuritic chest discomfort GI: Denies abdominal pain : Denies dysuria SKIN: Denies rash. MSK: Denies joint pain. NEURO: Denies headache (Rylan Ribeiro) Past Medical History Past Medical History: Atrial Fibrillation, Asthma, Cancer, COPD, Eye Disorder, Hearing Disorder / Deafness, Hyperlipidemia, Hypertension, Respiratory Disorder Additional Past Medical History / Comment(s): right eye glaucoma, uses sadi hearing aids, squamous cell skin ca, "bacterial lung infection" - dealing w/ it x 2yrs History of Any Multi-Drug Resistant Organisms: None Reported Past Surgical History: Tonsillectomy Additional Past Surgical History / Comment(s): squamous cell skin ca removed left forearm; basal cell ca removed Lt. shoulder and Lt. jaw(within last weeks); colonoscopy; bronchoscopy Past Anesthesia/Blood Transfusion Reactions: No Reported Reaction, Family History of Problems w/ Anesthesia Additional Past Anesthesia/Blood Transfusion Reaction / Comment(s): sister went into cardiac arrest after anesthesia for watchman procedure Past Psychological History: No Psychological Hx Reported Smoking Status: Former smoker Past Alcohol Use History: None Reported Past Drug Use History: None Reported - Past Family History Sister(s) Family Medical History: Cancer Additional Family Medical History / Comment(s): twin sister -multiple myeloma Brother(s) Family Medical History: Cancer Additional Family Medical History / Comment(s): lung cancer Mother Family Medical History: Cancer Additional Family Medical History / Comment(s): lung cancer <Brien Jordan - Last Filed: 09/26/24 15:02> General Exam Limitations: no limitations <Brien Jordan - Last Filed: 09/26/24 15:02> <Rylan Ribeiro - Last Filed: 09/26/24 21:58> - General Exam Comments Initial Comments: Visual Physical Exam Vital signs reviewed General: Well-appearing, nontoxic, no acute distress. Head: Normocephalic, atraumatic Eyes: PERRLA, EOMI ENT: Airway patent Chest: Nonlabored breathing Skin: No visual rash, normal skin tone Neuro: Alert and oriented 3 Musculoskeletal: No gross abnormalities (Brien Jordan) General: Appears in no acute distress. HEAD: Normal with no signs of head trauma. EYES: PERRLA, EOMI, conjunctiva normal, no discharge. ENT: Hearing grossly intact, normal oropharynx. RESPIRATORY: Bilateral end expiratory wheezing. No significant hypoxia or increased work of breathing. C/V: Regular rate and rhythm. S1 and S2 auscultated, peripheral pulses 2+ and intact throughout ABD: Abd is soft, nontender, nondistended EXT: Normal range of motion, no obvious deformity SKIN: No rashes or lesions observed on exposed skin. NEURO: Alert and oriented x 4. (Rylan Ribeiro) Course Vital Signs 09/26/24 09/26/24 09/26/24 14:58 19:11 19:20 Temperature 97.9 F Pulse Rate 94 90 96 Respiratory 18 Rate Blood Pressure 165/90 O2 Sat by Pulse 95 Oximetry 09/26/24 20:26 Temperature Pulse Rate 86 Respiratory 20 Rate Blood Pressure 118/86 O2 Sat by Pulse 93 L Oximetry Medical Decision Making <Brien Jordan - Last Filed: 09/26/24 15:02> - Lab Data Result diagrams: 09/26/24 15:14 09/26/24 15:14 - EKG Data -: EKG Interpreted by Me <Rylan Ribeiro - Last Filed: 09/26/24 21:58> - Medical Decision Making I completed the quick note portion of this chart signed Brien Jordan PA-C (Brien Jordan) Was pt. sent in by a medical professional or institution (JESSICA Willard, AIDS SOCIAL WORKER, urgent care, hospital, or custodial...) When possible be specific @ -No Did you speak to anyone other than the patient for history (EMS, parent, family, police, friend...)? What history was obtained from this source @ -No Did you review nursing and triage notes (agree or disagree)? Why? @ -I reviewed and agree with nursing and triage notes Were old charts reviewed (outside hosp., previous admission, EMS record, old EKG, old radiological studies, urgent care reports/EKG's, custodial records)? Report findings @ -No old charts were reviewed Differential Diagnosis (chest pain, altered mental status, abdominal pain women, abdominal pain men, vaginal bleeding, weakness, fever, dyspnea, syncope, headache, dizziness, GI bleed, back pain, seizure, CVA, palpatations, mental health, musculoskeletal)? @ -Pneumonia, viral syndrome, COPD. This list is not all inclusive. EKG interpreted by me (3pts min.). @ -As above X-rays interpreted by me (1pt min.). @ -Chest x-ray shows right sided infiltrates versus pulmonary nodules or malignancy CT interpreted by me (1pt min.). @ -CT negative for PE. Redemonstrates the right sided pulmonary nodules as well as some consolidations that could be infectious or inflammatory. U/S interpreted by me (1pt. min.). @ -None done What testing was considered but not performed or refused? (CT, X-rays, U/S, labs)? Why? @ -None What meds were considered but not given or refused? Why? @ -None Did you discuss the management of the patient with other professionals (professionals i.e. JESSICA Willard, AIDS SOCIAL WORKER, lab, RT, psych nurse, social staff worker, certified tower climber, teacher, campus security officer, wrapper caser)? Give summary @ -Discussed with Dr. Chandra and we reviewed his imaging and workup. Was in agreement plan for admission and starting the patient on cefepime due to his recent Pseudomonas sputum culture. Discussed with the admitting provider, Dr. London who accepted the admission. Was smoking cessation discussed for >3mins.? @ -No Was critical care preformed (if so, how long)? @ -No Were there social determinants of health that impacted care today? How? (Homelessness, low income, unemployed, alcoholism, drug addiction, transportation, low edu. Level, literacy, decrease access to med. care, nursing home, re hab)? @ -No Was there de-escalation of care discussed even if they declined (Discuss DNR or withdrawal of care, Hospice)? DNR status @ -No What co-morbidities impacted this encounter? (DM, HTN, Smoking, COPD, CAD, Cancer, CVA, ARF, Chemo, Hep., AIDS, mental health diagnosis, sleep apnea, morbid obesity)? @ -COPD Was patient admitted / discharged? Hospital course, mention meds given and route, prescriptions, significant lab abnormalities, going to OR and other pertinent info. @ -Patient presents emergency department with productive cough and exertional dyspnea with some pleuritic chest pain. Seems to be more related to infection as it has been ongoing for few days. Workup started as a quick note and was unremarkable. Very mild leukocytosis of 10.8. Chest x-ray redemonstrates some right-sided pneumonia versus malignancy. EKG unremarkable. I updated the patient at this time. He is wheezy. He will be given IV steroids as well as some breathing treatments and IV fluids. Recommended we just obtain his CT now that he is due to have next week and he was in agreement this plan. Vitals within acceptable limits. EKG shows no signs of acute ischemia. CT returned negative for PE. It does show that the infectious versus inflammatory consolidations of the right lung. Possible malignancy as well. I updated the patient. At this time he was finally in a room after the rest of the workup was obtained in the waiting room. He will be admitted for COPD exacerbation continued on IV steroids with breathing treatments. Patient will also be started on IV cefepime after discussion with his physician, Dr. Chandra considering his recent sputum culture testing positive for Pseudomonas. Consult placed to Dr. Chandra as well as pulmonology. I spoke with the admitting provider, Dr. London who accepted the admission. Patient was in agreement this plan. Undiagnosed new problem with uncertain prognosis? @ -No Drug Therapy requiring intensive monitoring for toxicity (Heparin, Nitro, Insulin, Cardizem)? @ -No Were any procedures done? @ -No Diagnosis/symptom? @ -COPD, pneumonia Acute, or Chronic, or Acute on Chronic? @ -Acute Uncomplicated (without systemic symptoms) or Complicated (systemic symptoms)? @ -Complicated Side effects of treatment? @ -No Exacerbation, Progression, or Severe Exacerbation? @ -No Poses a threat to life or bodily function? How? (Chest pain, [place], [place], pneumonia, PE, COPD, DKA, ARF, appy, cholecystitis, CVA, Diverticulitis, Homicidal, Suicidal, threat to staff... and all critical care pts) @ -Yes (Rylan Ribeiro) - Lab Data Lab Results 09/26/24 09/26/24 09/26/24 Range/Units 15:14 15:14 15:14 WBC 10.83 H (4.50-10.00) 10*3/uL RBC 5.40 (4.40-5.60) 10*6/uL Hgb 15.3 (13.0-17.0) g/dL Hct 46.1 (39.6-50.0) % MCV 85.4 (80.0-97.0) fL MCH 28.3 (27.0-32.0) pg MCHC 33.2 (32.0-37.0) g/dL Plt Count 368 (140-440) 10*3/uL MPV 9.2 L (9.5-12.2) fL Immature Gran % (Auto) 0.7 % Neutrophils % 74.0 % Lymphocytes % 15.5 % Monocytes % 7.0 % Eosinophils % 2.2 % Basophils % 0.6 % Immature Gran # 0.08 H (0.00-0.04) 10*3/uL Neutrophils # 8.00 H (1.80-7.70) 10*3/uL Lymphocytes # 1.68 (0.90-5.00) 10*3/uL Monocytes # 0.76 (0.20-1.00) 10*3/uL Eosinophils # 0.24 (0.04-0.35) 10*3/uL Basophils # 0.07 (0.00-0.10) 10*3/uL PT 11.8 (10.0-12.5) sec INR 1.1 (<1.2) APTT 31.2 H (22.0-30.0) sec Sodium 142 (137-145) mmol/L Potassium 4.3 (3.5-5.1) mmol/L Chloride 106 (98-107) mmol/L Carbon Dioxide 21 L (22-30) mmol/L Anion Gap 15 mmol/L BUN 13 (9-20) mg/dL Creatinine 0.84 (0.66-1.25) mg/dL Est GFR (CKD-EPI)AfAm >90 (>60 ml/min/1.73 sqM) Est GFR (CKD-EPI)NonAf 88 (>60 ml/min/1.73 sqM) Glucose 112 H (74-99) mg/dL Plasma Lactic Acid Ramu (0.7-2.0) mmol/L Calcium 9.5 (8.4-10.2) mg/dL Total Bilirubin 0.9 (0.2-1.3) mg/dL AST 22 (17-59) U/L ALT 14 (4-49) U/L Alkaline Phosphatase 113 (38-126) U/L Troponin I (0.000-0.034) ng/mL NT-Pro-B Natriuret Pep 174 pg/mL Total Protein 7.4 (6.3-8.2) g/dL Albumin 4.2 (3.5-5.0) g/dL 09/26/24 09/26/24 Range/Units 15:14 15:14 WBC (4.50-10.00) 10*3/uL RBC (4.40-5.60) 10*6/uL Hgb (13.0-17.0) g/dL Hct (39.6-50.0) % MCV (80.0-97.0) fL MCH (27.0-32.0) pg MCHC (32.0-37.0) g/dL Plt Count (140-440) 10*3/uL MPV (9.5-12.2) fL Immature Gran % (Auto) % Neutrophils % % Lymphocytes % % Monocytes % % Eosinophils % % Basophils % % Immature Gran # (0.00-0.04) 10*3/uL Neutrophils # (1.80-7.70) 10*3/uL Lymphocytes # (0.90-5.00) 10*3/uL Monocytes # (0.20-1.00) 10*3/uL Eosinophils # (0.04-0.35) 10*3/uL Basophils # (0.00-0.10) 10*3/uL PT (10.0-12.5) sec INR (<1.2) APTT (22.0-30.0) sec Sodium (137-145) mmol/L Potassium (3.5-5.1) mmol/L Chloride (98-107) mmol/L Carbon Dioxide (22-30) mmol/L Anion Gap mmol/L BUN (9-20) mg/dL Creatinine (0.66-1.25) mg/dL Est GFR (CKD-EPI)AfAm (>60 ml/min/1.73 sqM) Est GFR (CKD-EPI)NonAf (>60 ml/min/1.73 sqM) Glucose (74-99) mg/dL Plasma Lactic Acid Ramu 1.5 (0.7-2.0) mmol/L Calcium (8.4-10.2) mg/dL Total Bilirubin (0.2-1.3) mg/dL AST (17-59) U/L ALT (4-49) U/L Alkaline Phosphatase (38-126) U/L Troponin I <0.012 (0.000-0.034) ng/mL NT-Pro-B Natriuret Pep pg/mL Total Protein (6.3-8.2) g/dL Albumin (3.5-5.0) g/dL - EKG Data EKG Comments: 12-lead Electrocardiogram Interpretation Note EKG was reviewed and interpreted by myself. 12-lead ECG performed at 1508 is interpreted by me as revealing normal sinus rhythm at a rate of 81 beats per minute. [place] is normal. CT interval is 185 ms, QRS duration is 86 ms, QTc is 386 ms.. There were no ST or T wave abnormalities to suggest myocardial is chemia or injury. R wave progression across the precordium was satisfactory. By my interpretation this EKG is non-diagnostic for acute ischemia. (Rylan Ribeiro) Disposition <Brien Jordan - Last Filed: 09/26/24 15:02> Time of Disposition: 20:40 <Rylan Ribeiro - Last Filed: 09/26/24 21:58> Clinical Impression: COPD (chronic obstructive pulmonary disease), Pneumonia Disposition: ADMITTED IP TO THIS HOSP Condition: Stable Referrals: Maryann Randolph MD [Primary Care Provider] - 1-2 days
[2024-09-26 15:31] LABS: Basophils # (A) 0.07 10*3/uL (0.00-0.10); Basophils % (A) 0.6 %; Eosinophils # (A) 0.24 10*3/uL (0.04-0.35); Eosinophils % (A) 2.2 %; HCT 46.1 % (39.6-50.0); HGB 15.3 g/dL (13.0-17.0); Lymphocytes # (A) 1.68 10*3/uL (0.90-5.00); Lymphocytes % (A) 15.5 %; MCH 28.3 pg (27.0-32.0); MCHC 33.2 g/dL (32.0-37.0); MCV 85.4 fL (80.0-97.0); Monocytes # (A) 0.76 10*3/uL (0.20-1.00); Monocytes % (A) 7.0 %; Neutrophils # (A) 8.00 10*3/uL (1.80-7.70); Neutrophils % (A) 74.0 %; Platelet Count 368 10*3/uL (140-440); RBC 5.40 10*6/uL (4.40-5.60); RDW 12.7 % (11.5-14.5); WBC 10.83 10*3/uL (4.50-10.00)
[2024-09-26 15:43] LABS: ALT 14 U/L (4-49); AST 22 U/L (17-59); African American GFR (CKD) >90 (>60 ml/min/1.73 sqM); Albumin 4.2 g/dL (3.5-5.0); Alkaline Phosphatase 113 U/L (38-126); Anion Gap 15 mmol/L; Blood Urea Nitrogen 13 mg/dL (9-20); Calcium 9.5 mg/dL (8.4-10.2); Carbon Dioxide 21 mmol/L (22-30); Chloride 106 mmol/L (98-107); Glucose 112 mg/dL (74-99); Non-African American GFR(CKD) 88 (>60 ml/min/1.73 sqM); Potassium 4.3 mmol/L (3.5-5.1); Sodium 142 mmol/L (137-145); Total Protein 7.4 g/dL (6.3-8.2)
[2024-09-26 15:44] LABS: INR 1.1 (<1.2); Partial Thromboplastin Time 31.2 sec (22.0-30.0); Prothrombin Time 11.8 sec (10.0-12.5)
[2024-09-26 15:51] LABS: NT-Pro-B-Type Natriuretic Pept 174 pg/mL
--- NOTE | 2024-09-26 16:01 | XR ---
EXAMINATION TYPE: XR chest 2V DATE OF EXAM: 09/26/2024 3:55 PM COMPARISON: Multiple radiographs, with the most recent on 07/21/2024 TECHNIQUE: XR chest 2V Frontal and lateral views of the chest. CLINICAL INDICATION:Male, 74 years old with history of difficulty breathing; FINDINGS: Lungs/Pleura: There is no evidence of pleural effusion, focal consolidation, or pneumothorax. Pulmonary vascularity: Hyperinflation with flattening of the hemidiaphragms. No pleural effusion or p neumothorax. Patchy focal consolidative opacities within the right upper and lower lung. Heart/mediastinum: Cardiomediastinal silhouette is unremarkable. Atherosclerotic calcifications are seen in the aorta. Musculoskeletal: No acute osseous pathology. IMPRESSION: Background COPD changes with development of patchy consolidative opacities within the right upper and lower lung. Findings suggest pneumonia however underlying malignancy is not excluded. Continued foll ow-up is recommended. [facility], , 09/26/2024 3:59 PM
[2024-09-26] MEDS: IPRATROPIUM-ALBUTEROL 3 ML NEB INHALATION STA (19:09)
--- NOTE | 2024-09-26 19:16 | CT ---
EXAMINATION TYPE: CT chest angio for PE CT DLP: 292.2 mGycm, Automated exposure control for dose reduction was used. DATE OF EXAM: 09/26/2024 7:00 PM COMPARISON: Chest radiograph from same day. PET CT 12/24/2023, CT chest 12/10/2023 CLINICAL INDICATION:Male, 74 years old with history of eval for PE/infection/malignancy. see Chest xr ay; abnormal cxr TECHNIQUE/CONTRAST: CTA scan of the thorax is performed with IV Contrast, patient injected with 100 mL of Isovue 370, pul monary embolism protocol. MIP images are created and reviewed. FINDINGS: Pulmonary Artery: There is no evidence for a filling defect within the pulmonary vasculature to sugge st acute pulmonary embolism. The pulmonary artery is of normal size. Lungs/Pleura: No pleural effusion or pneumothorax. Moderate centrilobular emphysematous changes. Rede monstration of scattered subpleural reticular pulmonary fibrotic changes. No honeycombing identified. Right apical pleural parenchymal scarring redemonstrated. Stable predominantly left lower lobe subpl eural pulmonary nodules examples including a left lower lobe 5 mm pulmonary nodule (series 406, image 112) and a left lower lobe 4 mm pulmonary nodule (series 406, image 127). New patchy focal consolida tive opacity within the right middle lobe measuring up to 2.8 cm. Additional new patchy right lower l obe subpleural nodular opacities measuring 9 mm (series 406, image 111) and 1.4 cm (series 406, image 112). New pleural base posterior right upper lung 1.4 cm nodular opacity (series 406, image 47). New anterior right upper lobe pleural-based consolidative opacity. Airway: Large airways are patent. Heart: Size within normal limits.No pericardial effusion. No significant coronary artery calcificatio ns. Vasculature: No evidence of aortic aneurysm. Mediastinum: Stable enlarged right hilar lymph node measuring up to 2.3 cm. Stable mildly prominent p recarinal lymph node measuring 0.9 cm short axis. Stable borderline enlarged carinal lymph node measu ring 1 cm short axis. Musculoskeletal: No acute osseous abnormalities. Right shoulder arthropathy. Stable sclerotic focus w ithin the right lateral fourth rib. Possible benign bone island. No aggressive osseous lesion identif ied. Soft Tissues: Minimal bilateral gynecomastia. Lower neck: No significant findings. Upper Abdomen: Small hiatal hernia.. IMPRESSION: 1. No evidence of pulmonary embolism. 2. Several stable pulmonary nodules from prior examination with few new right lung peripheral nodular opacity/consolidation from prior exam. These may represent infectious/inflammatory nodules with tj gnancy not excluded. Recommend follow-up CT chest in 3 months versus repeat PET/CT. 3. Stable mediastinal and right hilar adenopathy from prior examination. Attention on follow-up exam. 4. Moderate to advanced emphysematous and pulmonary fibrotic changes. [facility], , 09/26/2024 7:14 PM
[2024-09-26] MEDS: methylPREDNISolone SOD SUCCI 125 MG/2 ML VIAL IV STA (20:30)
[2024-09-26] MEDS ORDERED: IPRATROPIUM-ALBUTEROL 3 ML NEB INHALATION PRN (20:49)
[2024-09-26] MEDS ORDERED: NALOXONE 0.4 MG/ML 1 ML VIAL IV PRN (20:51)
[2024-09-26] MEDS ORDERED: ONDANSETRON 4 MG/2 ML VIAL IVP PRN (20:51)
[2024-09-26] MEDS: LACTATED RINGERS 1,000 ML IV ONE (21:46)
[2024-09-26] MEDS: CEFEPIME 2 GM in SODIUM CHLORIDE 0.9% 100 ML IVPB SCH (21:55)
[2024-09-26] MEDS: LACTATED RINGERS 1,000 ML IV SCH (21:57)
[2024-09-26] MEDS: BRIMONIDINE TARTRATE 0.2% DROPS 5 ML BTL BOTH EYES SCH (22:44)
[2024-09-27] MEDS: IPRATROPIUM-ALBUTEROL 3 ML NEB INHALATION SCH ×2 (02:21→09:45)
--- NOTE | 2024-09-27 02:39 | P.CNPUL ---
History of Present Illness Consult date: 09/27/24 Requesting physician: Rylan Ribeiro Reason for consult: COPD Chief complaint: Shortness of breath, cough History of present illness: Patient is a 74-year-old male with past medical history significant for severe COPD with a baseline FEV1 32% of predicted, former tobacco dependence, and frequ ent pneumonias/pulmonary infections. Recently, worked up for scattered pulmonary nodules and increased interstitial densities bilaterally, which were thought to be infectious in nature. Previous bronchoscopy done 01/13/2024 isolated Pseudomonas aeruginosa and Klebsiella oxytoca, as well as, Mycoba cterium chimera intracellular group. Cytology from [place] unremarkable for malignant cells. He has been following with Dr. Ma in the pulmonary office. Previously maintained on a prolonged course of quinolones. More recently, Dr. Ma performed a follow-up bronchoscopy with BAL on 07/06/24, which was positive for Pseudomonas aeruginosa, Mycobacterium chimera intracellular group and Stacie. Was referred to infectious disease for antibiotic management. Over the last 3-4 days, developing increased work of breathing, persistent cough with colored brown mucus and right-sided chest discomfort with inspiration and coughing. Chest CT angiogram did not show any evidence of pulmonary embolism. There were several stable pulmonary nodules from prior examination with few new right lung peripheral nodular opacities/consolidations from prior. Concerning for infectious process. Stable mediastinal right hilar adenopathy from prior exam. Moderate to advanced emphysematous and pulmonary fibrotic changes were additionally noted. Most recent sputum culture positive for Pseudomonas aerug inosa and acid-fast bacilli. Labs including CBC with a WC count of 10.8, hemoglobin 15.3, platelets 368. CMP is unremarkable, electrolytes WDL, creatinine 0.84, glucose 112. Lactic 1.5. LFTs not elevated. Troponin less than 0.012. NT proBNP 174. Patient currently being evaluated in the ED. He is currently resting comfortably on room air. Has congested cough. Reporting pleuritic-like chest pain as described above. Also cough with brown sputum production. Denies any hemoptysis. Denies any fevers or chills. Denies any weight loss, fatigue, sweats. Current vital signs are stable. Review of Systems Constitutional: Denies fatigue, denies weight loss, Denies chills, Denies fever, Denies night sweats, Denies poor appetite, Denies weight gain Ears, nose, mouth and throat: Denies epistaxis, Denies headache, Denies nasal congestion, Denies nasal discharge, Denies post-nasal drip, Denies sinus pain, Denies sinus pressure, Denies sore throat, Denies voice changes Cardiovascular: Denies chest pain, Denies leg edema, Denies lightheadedness, Denies orthopnea, Denies palpitations, Denies paroxysmal nocturnal dyspnea, Denies syncope Respiratory: Reports as per HPI Gastrointestinal: Denies abdominal pain, Denies constipation, Denies diarrhea, Denies nausea, Denies vomiting Genitourinary: Denies dysuria Musculoskeletal: Denies limitation of motion Integumentary: Denies rash Neurological: Denies seizures, Denies syncope Psychiatric: Denies anxiety, Denies depression Past Medical History Past Medical History: Atrial Fibrillation, Asthma, Cancer, COPD, Eye Disorder, Hearing Disorder / Deafness, Hyperlipidemia, Respiratory Disorder Additional Past Medical History / Comment(s): right eye glaucoma, uses sadi hearing aids, squamous cell skin ca, "bacterial lung infection" - dealing w/ it x 2yrs History of Any Multi-Drug Resistant Organisms: None Reported Past Surgical History: Tonsillectomy Additional Past Surgical History / Comment(s): squamous cell skin ca removed left forearm; basal cell ca removed Lt. shoulder and Lt. jaw(within last weeks); colonoscopy; bronchoscopy june 2024 Past Anesthesia/Blood Transfusion Reactions: No Reported Reaction, Family History of Problems w/ Anesthesia Additional Past Anesthesia/Blood Transfusion Reaction / Comment(s): sister went into cardiac arrest after anesthesia for watchman procedure Past Psychological History: No Psychological Hx Reported Smoking Status: Former smoker Past Alcohol Use History: None Reported Additional Past Alcohol Use History / Comment(s): quit smoking in 2005- smoked between 1 1/2 to 2ppd for about 40 yrs Past Drug Use History: None Reported - Past Family History Sister(s) Family Medical History: Cancer Additional Family Medical History / Comment(s): twin sister -multiple myeloma Brother(s) Family Medical History: Cancer Additional Family Medical History / Comment(s): lung cancer Mother Family Medical History: Cancer Additional Family Medical History / Comment(s): lung cancer Medications and Allergies Home Medications Medication Instructions Recorded Confirmed Type Latanoprost/Pf [Latanoprost 0.005% 1 drop BOTH EYES HS 11/15/18 09/26/24 History Eye Drop] Simvastatin [Zocor] 20 mg PO HS 11/15/18 09/26/24 History Brimonidine Tartrate [Alphagan P 1 drop BOTH EYES TID 11/17/22 09/26/24 History 0.2% Ophth Soln] Dorzolamide-Timol 2.23%/0.68% 1 drop BOTH EYES BID 11/17/22 09/26/24 History [Cosopt] Omeprazole 20 mg PO W/LUNCH 11/17/22 09/26/24 History Apixaban [Eliquis] 5 mg PO BID 01/10/24 09/26/24 History Metoprolol Succinate (ER) [Toprol 25 mg PO DAILY 01/10/24 09/26/24 History XL] Fluticasone Propion/Salmeterol 1 puff INHALATION RT-BID 07/09/24 09/26/24 History [Advair 500-50 Diskus] Famotidine [Pepcid] 20 mg PO HS PRN 09/26/24 09/26/24 History Allergies Allergy/AdvReac Type Severity Reaction Status Date / Time No Known Allergies Allergy Verified 09/26/24 21:23 Physical Exam Vitals: Vital Signs Temp Pulse Resp BP Pulse Ox 09/27/24 00:37 97.8 F 86 18 95/61 94 L 09/26/24 20:26 86 20 118/86 93 L 09/26/24 19:20 96 09/26/24 19:11 90 09/26/24 14:58 97.9 F 94 18 165/90 95 Intake and Output 09/26/24 09/26/24 09/27/24 14:59 22:59 06:59 Other: Weight 68.039 kg 68.039 kg GENERAL EXAM: Alert, 74-year-old male, on room air, comfortable in no apparent distress. HEAD: Normocephalic and atraumatic EYES: Normal reaction of pupils, equal size. NOSE: Clear with pink turbinates. THROAT: No erythema or exudates. NECK: No masses, no JVD. CHEST: No chest wall deformity. LUNGS: Equal air entry with expiratory wheezing scattered rhonchi. Congested cough. No conversational dyspnea or accessory muscle use. CVS: S1 and S2 normal with no audible murmur, regular rhythm. No extra heart sounds ABDOMEN: No hepatosplenomegaly, active bowel sounds, no guarding or rigidity. SPINE: No scoliosis or deformity SKIN: No rashes CENTRAL NERVOUS SYSTEM: No focal deficits, tone is normal in all 4 extremities. EXTREMITIES: There is no peripheral edema or cyanosis. Peripheral pulses are intact. Digital clubbing noted. Results - Laboratory Findings CBC and BMP: 09/26/24 15:14 09/26/24 15:14 PT/INR, D-dimer PT 11.8 sec (10.0-12.5) 09/26/24 15:14 INR 1.1 (<1.2) 09/26/24 15:14 Abnormal lab findings: Abnormal Labs 09/26/24 09/26/24 09/26/24 15:14 15:14 15:14 WBC 10.83 H MPV 9.2 L Immature Gran # 0.08 H Neutrophils # 8.00 H APTT 31.2 H Carbon Dioxide 21 L Glucose 112 H - Diagnostic Findings CT scan - chest: image reviewed Assessment and Plan Assessment: Acute COPD exacerbation Bronchoscopy with BAL from 07/06/24 isolating Pseudomonas aeruginosa, Mycobacterium chimera intracellular group and Stacie Nontuberculous mycobacterial infection, patient previously referred to infectious disease for antibiotic management Acute on chronic dyspnea, secondary to above Frequent pulmonary infection/pneumonia, with history of bronchoscopy done 01/13/2024 isolating pseudomonas aeruginosa/Klebsiella oxytoca, as well as, Mycobacterium chimera intracellular group History bilateral pulmonary nodular opacities, with reticular infiltrates, and mediastinal/hilar lymphadenopathy Severe COPD, with a baseline FEV1 32% of predicted Former tobacco dependence, quit in 2005 History of hyperlipidemia Hypertension History of paroxysmal atrial fibrillation, normally anticoagulated on Eliquis History of localized squamous cell skin cancer, removed by digital media specialist Plan: Currently on room air Chest CT angiogram did not show any evidence of pulmonary embolism. There were several stable pulmonary nodules from prior examination with few new right lung peripheral nodular opacities/consolidations from prior. Concerning for infectious process. Stable mediastinal right hilar adenopathy from prior exam. Moderate to advanced emphysematous and pulmonary fibrotic changes were additionally noted. Recent sputum collected outpatient positive for Pseudomonas aeruginosa's and a ken[place]-fast bacilli again Infectious diseases consulted for antibiotic management Continue DuoNebs, Symbicort inhaler, and IV Solu-Medrol Case to be reviewed with Dr. Ma, additional recommendations forthcoming I have personally seen and examined the patient, performed the documentation and the assessment and plan as written. Number of minutes spent on the visit:20 Time with Patient: Greater than 30
[2024-09-27 03:42] LABS: Basophils # (A) 0.03 10*3/uL (0.00-0.10); Basophils % (A) 0.3 %; Eosinophils # (A) 0.00 10*3/uL (0.04-0.35); Eosinophils % (A) 0.0 %; HCT 42.8 % (39.6-50.0); HGB 14.1 g/dL (13.0-17.0); Lymphocytes # (A) 0.90 10*3/uL (0.90-5.00); Lymphocytes % (A) 9.0 %; MCH 28.3 pg (27.0-32.0); MCHC 32.9 g/dL (32.0-37.0); MCV 85.8 fL (80.0-97.0); Monocytes # (A) 0.05 10*3/uL (0.20-1.00); Monocytes % (A) 0.5 %; Neutrophils # (A) 8.97 10*3/uL (1.80-7.70); Neutrophils % (A) 89.6 %; Platelet Count 322 10*3/uL (140-440); RBC 4.99 10*6/uL (4.40-5.60); RDW 12.8 % (11.5-14.5); WBC 10.01 10*3/uL (4.50-10.00)
[2024-09-27 04:23] LABS: ALT 13 U/L (4-49); AST 18 U/L (17-59); African American GFR (CKD) >90 (>60 ml/min/1.73 sqM); Albumin 3.6 g/dL (3.5-5.0); Alkaline Phosphatase 107 U/L (38-126); Anion Gap 15 mmol/L; Blood Urea Nitrogen 12 mg/dL (9-20); Calcium 9.5 mg/dL (8.4-10.2); Carbon Dioxide 20 mmol/L (22-30); Chloride 106 mmol/L (98-107); Glucose 156 mg/dL (74-99); Non-African American GFR(CKD) >90 (>60 ml/min/1.73 sqM); Potassium 4.3 mmol/L (3.5-5.1); Sodium 141 mmol/L (137-145); Total Protein 6.7 g/dL (6.3-8.2)
[2024-09-27] MEDS: methylPREDNISolone SOD SUCCI 40 MG/ML 1 ML VIAL IV SCH (08:04)
[2024-09-27] MEDS: APIXABAN 5 MG TAB PO SCH (08:47)
[2024-09-27] MEDS: ACETAMINOPHEN TAB 325 MG TAB PO PRN (08:47)
[2024-09-27] MEDS: METOPROLOL SUCCINATE (ER) 25 MG TAB.ER.24H PO SCH (08:47)
[2024-09-27] MEDS ORDERED: ENOXAPARIN 40 MG/0.4 ML SYRINGE SQ SCH (09:00)
[2024-09-27] MEDS: SYMBICORT 160-4.5 MCG INHALER INHALATION SCH (09:45)
[2024-09-27] MEDS: DORZOLAMIDE-TIMOLOL 2.23%/0.68 10ML BTL BOTH EYES SCH (12:07)
--- NOTE | 2024-09-27 16:55 | P.CONS ---
History of Present Illness - Reason for Consult Consult date: 09/27/24 pneumonia Requesting physician: Rylan Ribeiro - Chief Complaint Shortness of breath x few days - History of Present Illness Patient is a 74-year-old male with past medical history significant for severe COPD, frequent pneumonias. He underwent bronchoscopy on 01/13/2024, with findings isolated Pseudomonas aeruginosa and Klebsiella oxytoca, as well as, Mycobacterium chimera intracellular group. Cytology from [place] unremarkable for malignant cells. He was maintained on a prolonged course of quinolones by pulmonology. Repeat bronchoscopy with BAL durung hospitalization on 07/06/24 was positive for Pseudomonas aeruginosa, Mycobacterium chimera intracellular group and Stacie. CT chest had scattered pulmonary nodules and increased interstitial densities bilaterally, and thought to be infectious in nature. On presentation to the hospital, he describes shortness of breath few days, persistent cough with colored brown mucus and right-sided chest discomfort with inspiration and coughing. CT chest angiogram with findings of no evidence of pulmonary embolism, and several stable pulmonary nodules from previous CT with new right lung peripheral nodular opacity/consolidation. Infectious versus inflammatory process, also, stable mediastinal and right hilar adenopathy. Most recent sputum culture completed on 09/19/2024 positive for Pseudomonas aeruginosa and acid-fast bacilli. He is afebrile. Labs on admission CBC with a WBC count of 10.8, creatinine 0.84. He is currently resting comfortably on room air. He has a productive cough with brown sputum. Review of Systems Positive point and negatives has been mentioned in the HPI, complete review of systems was performed and all other systems are negative Past Medical History Past Medical History: Atrial Fibrillation, Asthma, Cancer, COPD, Eye Disorder, Hearing Disorder / Deafness, Hyperlipidemia, Respiratory Disorder Additional Past Medical History / Comment(s): right eye glaucoma, uses sadi hearing aids, squamous cell skin ca, "bacterial lung infection" - dealing w/ it x 2yrs History of Any Multi-Drug Resistant Organisms: None Reported Past Surgical History: Tonsillectomy Additional Past Surgical History / Comment(s): squamous cell skin ca removed left forearm; basal cell ca removed Lt. shoulder and Lt. jaw(within last weeks); colonoscopy; bronchoscopy june 2024 Past Anesthesia/Blood Transfusion Reactions: No Reported Reaction, Family History of Problems w/ Anesthesia Additional Past Anesthesia/Blood Transfusion Reaction / Comm: sister went into cardiac arrest after anesthesia for watchman procedure Past Psychological History: No Psychological Hx Reported Smoking Status: Former smoker Past Alcohol Use History: None Reported Additional Past Alcohol Use History / Comment(s): quit smoking in 2005- smoked between 1 1/2 to 2ppd for about 40 yrs Past Drug Use History: None Reported - Past Family History Sister(s) Family Medical History: Cancer Additional Family Medical History / Comment(s): twin sister -multiple myeloma Brother(s) Family Medical History: Cancer Additional Family Medical History / Comment(s): lung cancer Mother Family Medical History: Cancer Additional Family Medical History / Comment(s): lung cancer Medications and Allergies Home Medications Medication Instructions Recorded Confirmed Type Latanoprost/Pf [Latanoprost 0.005% 1 drop BOTH EYES HS 11/15/18 09/26/24 History Eye Drop] Simvastatin [Zocor] 20 mg PO HS 11/15/18 09/26/24 History Brimonidine Tartrate [Alphagan P 1 drop BOTH EYES TID 11/17/22 09/26/24 History 0.2% Ophth Soln] Dorzolamide-Timol 2.23%/0.68% 1 drop BOTH EYES BID 11/17/22 09/26/24 History [Cosopt] Omeprazole 20 mg PO W/LUNCH 11/17/22 09/26/24 History Apixaban [Eliquis] 5 mg PO BID 01/10/24 09/26/24 History Metoprolol Succinate (ER) [Toprol 25 mg PO DAILY 01/10/24 09/26/24 History XL] Fluticasone Propion/Salmeterol 1 puff INHALATION RT-BID 07/09/24 09/26/24 History [Advair 500-50 Diskus] Famotidine [Pepcid] 20 mg PO HS PRN 09/26/24 09/26/24 History Allergies Allergy/AdvReac Type Severity Reaction Status Date / Time No Known Allergies Allergy Verified 09/26/24 21:23 Physical Exam Vitals: Vital Signs Temp Pulse Pulse Resp BP BP Pulse Ox 09/27/24 14:00 98.4 F 86 16 109/67 96 09/27/24 13:52 96 09/27/24 13:41 92 09/27/24 09:59 92 09/27/24 09:44 92 09/27/24 07:58 97.6 F 92 14 108/69 92 L 09/27/24 01:40 98.2 F 85 16 130/75 93 L 09/27/24 00:37 97.8 F 86 18 95/61 94 L 09/26/24 20:26 86 20 118/86 93 L 09/26/24 19:20 96 09/26/24 19:11 90 Intake and Output 09/27/24 09/27/24 09/27/24 06:59 14:59 22:59 Other: Voiding Method Toilet # Voids 1 Weight 68.039 kg GENERAL DESCRIPTION: Elderly male lying in bed, no distress. No tachypnea or accessory muscle of respiration use. HEENT: No Pallor , no scleral icterus. Oral mucous membrane is moist. No pharyngeal erythema or thrush NECK: Trachea central, no thyromegaly. LUNGS: Unlabored breathing. Clear to auscultation anteriorly. Mild wheeze, no crackling HEART: S1, S2, regular rate and rhythm. No loud murmur ABDOMEN: Soft, nondistended, nontender EXTREMITIES: No edema of feet. SKIN: No ulcerations or lesions noted NEUROLOGICAL: The patient is awake, alert, oriented x3, mood and affect normal. Results CBC & Chem 7: 09/27/24 02:42 09/27/24 02:42 Labs: Abnormal Lab Results - Last 24 Hours (Table) 09/26/24 09/26/24 09/26/24 Range/Units 15:14 15:14 15:14 WBC 10.83 H (4.50-10.00) 10*3/uL MPV 9.2 L (9.5-12.2) fL Immature Gran # 0.08 H (0.00-0.04) 10*3/uL Neutrophils # 8.00 H (1.80-7.70) 10*3/uL Monocytes # (0.20-1.00) 10*3/uL Eosinophils # (0.04-0.35) 10*3/uL APTT 31.2 H (22.0-30.0) sec Carbon Dioxide 21 L (22-30) mmol/L Glucose 112 H (74-99) mg/dL 09/27/24 09/27/24 Range/Units 02:42 02:42 WBC 10.01 H (4.50-10.00) 10*3/uL MPV 9.4 L (9.5-12.2) fL Immature Gran # 0.06 H (0.00-0.04) 10*3/uL Neutrophils # 8.97 H (1.80-7.70) 10*3/uL Monocytes # 0.05 L (0.20-1.00) 10*3/uL Eosinophils # 0.00 L (0.04-0.35) 10*3/uL APTT (22.0-30.0) sec Carbon Dioxide 20 L (22-30) mmol/L Glucose 156 H (74-99) mg/dL Microbiology - Last 24 Hours (Table) 09/26/24 21:13 Blood Culture Gram Stain - Preliminary Blood Assessment and Plan (1) COPD (chronic obstructive pulmonary disease) Current Visit: Yes Status: Acute Code(s): J44.9 - CHRONIC OBSTRUCTIVE PULMON RYDER DISEASE, UNSPECIFIED SNOMED Code(s): 15767394 (2) Pneumonia Current Visit: Yes Status: Acute Code(s): J18.9 - PNEUMONIA, UNSPECIFIED ORGANISM SNOMED Code(s): 212277048 (3) Acute exacerbation of chronic obstructive pulmonary disease Current Visit: No Status: Acute Code(s): J44.1 - CHRONIC OBSTRUCTIVE PULMONARY DISEASE W (ACUTE) EXACERBATION SNOMED Code(s): 173508607 (4) Pulmonary nodules Current Visit: No Status: Acute Code(s): R91.8 - OTHER NONSPECIFIC ABNORMAL FINDING OF LUNG FIELD SNOMED Code(s): 154455658 (5) Mycobacterium avium infection Current Visit: Yes Status: Acute Code(s): A31.0 - PULMONARY MYCOBACTERIAL INFECTION SNOMED Code(s): 039190632 Plan: 1. Patient presented to hospital with increased shortness of breath and produc tive cough, with brown sputum. CT of the chest without pulmonary embolism, and findings of pulmonary nodules which were present on previous imaging, and findings concerning for new nodules. His last sputum culture was positive for acid past bacilli and Pseudomonas, and had findings positive for Mycobacterium chimaera found in sputum 01/13/2024, and Pseudomonas 01/11/2024. He has been maintained on quinolones as an outpatient. 2. Patient currently on cefepime, and bronchodilators and Solu-Medrol for COPD exacerbation. 3. Given the CTA chest and recent sputum culture findings, would recommend beginning azithromycin, rifampin, and ethambutol for coverage of Mycobacterium chimaera Micheal Mejia MD Internal Medicine Resident, PGY2 Infectious disease service Patient was personally seen and examined along with resident physician patient has been to hospital likely with COPD exacerbation with tracheobronchitis with last sputum culture positive for Pseudomonas for the patient has been started on cefepime in addition to the bronchodilators and steroids Patient also have a history of DANIEL with the CT shows nodular disease patient will need to be started on ethambutol rifampin and Zithromax I did check with the pharmacist and they do not have ethambutol available in the hospital hence we will plan on starting medication for his DANIEL on discharge cornell willson MD Dictation was produced using [employer] dictation software. please excuse any grammatical, word or spelling errors. Time with Patient: Greater than 30
[2024-09-27] MEDS: ATORVASTATIN 20 MG TAB PO SCH (21:52)
[2024-09-28] MEDS: IPRATROPIUM-ALBUTEROL 3 ML NEB INHALATION SCH (12:10)
--- NOTE | 2024-09-28 12:59 | P.HPIM ---
History of Present Illness H&P Date: 09/27/24 Jovon Oconnor, is a 74-year-old male who presented to [facility] emergency room with a chief complaint of cough and shortness of breath He was evaluated in the emergency room vital examination on presentation revealed temp 97.6, heart 92, respiratory rate 14, blood pressure 108/69 with a pulse ox of 92% on room air Laboratory data reveals white blood cell 10.83, hemoglobin 15.3, sodium 142, creatinine 0.84 bun 13 BNP 174 and troponin negative Testing in the emergency room revealed chest CTA completed showing no evidence for pulmonary embolism several stable pulmonary nodules from prior exam with few new right lung para Bernard nodule opacities these may represent infectious or inflammatory nodules with malignancy not excluded moderate to advanced emphysematous and pulmonary fibrotic changes Patient was admitted to medical floor for further evaluation and treatment. Jovon wall patient's history patient will be admitted and started on IV antibiotics infectious disease and pulmonary services who are well-known to this patient will be consulted Past medical history is significant for recurrent pulmonary infections including infection secondary to Pseudomonasaerugonisa, Klebsiella oxytoca and mycobacterial chimera cellular group. Patient has had multiple bronchoscopies in the past follows regularly with infectious disease and pulmonary services. Additional medical history includes A-fib, asthma, cancer, COPD, eye disorder, hearing disorder, hyperlipidemia, respiratory disorder and ex-smoker On review of systems patient is resting comfortably in bed. Patient denies chest pain. Patient denies nausea vomiting or diarrhea. Patient denies any urinary burning or frequency patient does report productive cough with brown sputum Review of Systems Please refer to HPI otherwise unremarkable Past Medical History Past Medical History: Atrial Fibrillation, Asthma, Cancer, COPD, Eye Disorder, H earing Disorder / Deafness, Hyperlipidemia, Respiratory Disorder Additional Past Medical History / Comment(s): right eye glaucoma, uses sadi hearing aids, squamous cell skin ca, "bacterial lung infection" - dealing w/ it x 2yrs History of Any Multi-Drug Resistant Organisms: None Reported Past Surgical History: Tonsillectomy Additional Past Surgical History / Comment(s): squamous cell skin ca removed left forearm; basal cell ca removed Lt. shoulder and Lt. jaw(within last weeks); colonoscopy; bronchoscopy june 2024 Past Anesthesia/Blood Transfusion Reactions: No Reported Reaction, Family History of Problems w/ Anesthesia Additional Past Anesthesia/Blood Transfusion Reaction / Comment(s): sister went into cardiac arrest after anesthesia for watchman procedure Past Psychological History: No Psychological Hx Reported Smoking Status: Former smoker Past Alcohol Use History: None Reported Additional Past Alcohol Use History / Comment(s): quit smoking in 2005- smoked between 1 1/2 to 2ppd for about 40 yrs Past Drug Use History: None Reported - Past Family History Sister(s) Family Medical History: Cancer Additional Family Medical History / Comment(s): twin sister -multiple myeloma Brother(s) Family Medical History: Cancer Additional Family Medical History / Comment(s): lung cancer Mother Family Medical History: Cancer Additional Family Medical History / Comment(s): lung cancer Medications and Allergies Home Medications Medication Instructions Recorded Confirmed Type Latanoprost/Pf [Latanoprost 0.005% 1 drop BOTH EYES HS 11/15/18 09/26/24 History Eye Drop] Simvastatin [Zocor] 20 mg PO HS 11/15/18 09/26/24 History Brimonidine Tartrate [Alphagan P 1 drop BOTH EYES TID 11/17/22 09/26/24 History 0.2% Ophth Soln] Dorzolamide-Timol 2.23%/0.68% 1 drop BOTH EYES BID 11/17/22 09/26/24 History [Cosopt] Omeprazole 20 mg PO W/LUNCH 11/17/22 09/26/24 History Apixaban [Eliquis] 5 mg PO BID 01/10/24 09/26/24 History Metoprolol Succinate (ER) [Toprol 25 mg PO DAILY 01/10/24 09/26/24 History XL] Fluticasone Propion/Salmeterol 1 puff INHALATION RT-BID 07/09/24 09/26/24 History [Advair 500-50 Diskus] Famotidine [Pepcid] 20 mg PO HS PRN 09/26/24 09/26/24 History Allergies Allergy/AdvReac Type Severity Reaction Status Date / Time No Known Allergies Allergy Verified 09/26/24 21:23 Physical Exam Vitals: Vital Signs Temp Pulse Pulse Resp BP BP Pulse Ox 09/27/24 14:00 98.4 F 86 16 109/67 96 09/27/24 13:52 96 09/27/24 13:41 92 09/27/24 09:59 92 09/27/24 09:44 92 09/27/24 07:58 97.6 F 92 14 108/69 92 L 09/27/24 01:40 98.2 F 85 16 130/75 93 L 09/27/24 00:37 97.8 F 86 18 95/61 94 L 09/26/24 20:26 86 20 118/86 93 L 09/26/24 19:20 96 09/26/24 19:11 90 Intake and Output 09/27/24 09/27/24 09/27/24 06:59 14:59 22:59 Other: Voiding Method Toilet # Voids 1 4 # Bowel Movements 1 Weight 68.039 kg In general patient is alert and oriented Ã-3 in no distress HEENT head normocephalic and atraumatic Neck is supple no JVD no goiter no lymphadenopathy no carotid bruit Chest examination is clear to auscultation no crackles no wheezing Cardiac exam reveals regular heart sounds S1 and S2 no gallops no murmurs Abdomen is soft nontender no organomegaly with normal bowel sounds Extremity exam reveals no edema no cyanosis or clubbing Neurological examination reveals no gross focal deficits Results CBC & Chem 7: 09/27/24 02:42 09/27/24 02:42 Labs: Abnormal Lab Results - Last 24 Hours (Table) 09/27/24 09/27/24 Range/Units 02:42 02:42 WBC 10.01 H (4.50-10.00) 10*3/uL MPV 9.4 L (9.5-12.2) fL Immature Gran # 0.06 H (0.00-0.04) 10*3/uL Neutrophils # 8.97 H (1.80-7.70) 10*3/uL Monocytes # 0.05 L (0.20-1.00) 10*3/uL Eosinophils # 0.00 L (0.04-0.35) 10*3/uL Carbon Dioxide 20 L (22-30) mmol/L Glucose 156 H (74-99) mg/dL Microbiology - Last 24 Hours (Table) 09/26/24 21:13 Blood Culture Gram Stain - Preliminary Blood Thrombosis Risk Factor Assmnt - Choose All That Apply Each Risk Factor Represents 2 Points: Age 61-74 years Thrombosis Risk Factor Assessment Total Risk Factor Score: 2 Thrombosis Risk Factor Assessment Level: Low Risk Assessment and Plan Assessment: Shortness of breath secondary to COPD exacerbation and pneumonia History of 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 GI prophylax Protonix Pulmonary and infectious disease services consulted Patient started on IV steroids and IV antibiotics Blood and sputum cultures ordered Time with Patient: Greater than 30 (Greater than 60% of the total time spent in counseling and coordination of care)
--- NOTE | 2024-09-28 13:00 | P.PN ---
Subjective Progress Note Date: 09/28/24 Jovon Oconnor, is a 74-year-old male who presented to [facility] emergency room with a chief complaint of cough and shortness of breath He was evaluated in the emergency room vital examination on presentation revealed temp 97.6, heart 92, respiratory rate 14, blood pressure 108/69 with a pulse ox of 92% on room air Laboratory data reveals white blood cell 10.83, hemoglobin 15.3, sodium 142, creatinine 0.84 bun 13 BNP 174 and troponin negative Testing in the emergency room revealed chest CTA completed showing no evidence for pulmonary embolism several stable pulmonary nodules from prior exam with few new right lung para Bernard nodule opacities these may represent infectious or i nflammatory nodules with malignancy not excluded moderate to advanced emphysematous and pulmonary fibrotic changes Patient was admitted to medical floor for further evaluation and treatment. 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 Patient has had multiple bronchoscopies in the past follows regularly with infectious disease and pulmonary services. Additional medical history includes A-fib, asthma, cancer, COPD, eye disorder, hearing disorder, hyperlipidemia, respiratory disorder and ex-smoker On review of systems patient is resting comfortably in bed. Patient denies chest pain. Patient denies nausea vomiting or diarrhea. Patient denies any urinary burning or frequency patient does report productive cough with brown sputum On 09/28/2024 patient is alert and oriented x 3. Patient denies chest pain. Patient does report some shortness of breath with activity. Patient denies nausea vomiting or diarrhea. Patient denies any urinary burning or frequency. Pulmonary and infectious disease services are following. Patient did have positive blood culture but likely contamination. Objective - Vital Signs Vital signs: Vital Signs Temp 97.3 F L 09/28/24 06:55 Pulse 90 09/28/24 12:25 Resp 18 09/28/24 06:55 BP 117/62 09/28/24 06:55 Pulse Ox 97 09/28/24 08:12 FiO2 Intake & Output 09/27/24 09/28/24 09/28/24 18:59 06:59 18:59 Other: # Voids 4 2 # Bowel Movements 1 - Exam In general patient is alert and oriented Ã-3 in no distress HEENT head normocephalic and atraumatic Neck is supple no JVD no goiter no lymphadenopathy no carotid bruit Chest examination is clear to auscultation no crackles no wheezing Cardiac exam reveals regular heart sounds S1 and S2 no gallops no murmurs Abdomen is soft nontender no organomegaly with normal bowel sounds Extremity exam reveals no edema no cyanosis or clubbing Neurological examination reveals no gross focal deficits - Labs CBC & Chem 7: 09/27/24 02:42 09/27/24 02:42 Labs: Microbiology - Last 24 Hours (Table) 09/26/24 21:13 Blood Culture Gram Stain - Preliminary Blood Blood Culture - Preliminary Molecular ID Assessment and Plan Assessment: Shortness of breath secondary to COPD exacerbation and pneumonia History of 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 GI prophylax Protonix Pulmonary and infectious disease services consulted Patient started on IV steroids and IV antibiotics Blood and sputum cultures ordered
[2024-09-28] MEDS: FAMOTIDINE 20 MG TAB PO PRN (15:18)
--- NOTE | 2024-09-28 15:21 | P.PN ---
Subjective Progress Note Date: 09/28/24 Patient is a 74-year-old male with past medical history significant for severe COPD with a baseline FEV1 32% of predicted, former tobacco dependence, and frequent pneumonias/pulmonary infections. Recently, worked up for scattered pulmonary nodules and increased interstitial densities bilaterally, which were thought to be infectious in nature. Previous bronchoscopy done 01/13/2024 isolated Pseudomonas aeruginosa and Klebsiella oxytoca, as well as, Mycobacterium chimera intracellular group. Cytology from [facility] unremarkable for malignant cells. He has been following with Dr. Ma in the pulmonary office. Previously maintained on a prolonged course of quinolones. More recently, Dr. Ma performed a follow-up bronchoscopy with BAL on 07/06/24, which was positive for Pseudomonas aeruginosa, Mycobacterium chimera intracellular group and Stacie. Was referred to infectious disease for anti biotic management. Over the last 3-4 days, developing increased work of breathing, persistent cough with colored brown mucus and right-sided chest discomfort with inspiration and coughing. Chest CT angiogram did not show any evidence of pulmonary embolism. There were several stable pulmonary nodules from prior examination with few new right lung peripheral nodular opacities/consolidations from prior. Concerning for infectious process. Stable mediastinal right hilar adenopathy from prior exam. Moderate to advanced emphysematous and pulmonary fibrotic changes were additionally noted. Most recent sputum culture positive for Pseudomonas aeruginosa and acid-fast bacilli. Labs including CBC with a WC count of 10.8, hemoglobin 15.3, platelets 368. CMP is unremarkable, electrolytes WDL, creatinine 0.84, glucose 112. Lactic 1.5. LFTs not elevated. Troponin less than 0.012. NT proBNP 174. Patient currently being evaluated in the ED. He is currently resting comfortably on room air. Has congested cough. Reporting pleuritic-like chest pain as described above. Also cough with brown sputum production. Denies any hemoptysis. Denies any fevers or chills. Denies any weight loss, fatigue, sweats. Current vital signs are stable. The patient is seen today September 28, 2024 in follow-up on the regular medical floor. He is currently sitting up in bed. Awake and alert in no acute d istress. Denies any worsening shortness of breath, cough or congestion. He is maintaining good O2 saturations in the 90s on room air oxygen. Blood culture revealing bacillus species not anthracis. He remains on DuoNeb inhalations, Symbicort, Solu-Medrol. Continued on cefepime. Anticoagulated with Eliquis. No new labs today. Objective - Vital Signs Vital signs: Vital Signs Temp 97.7 F 09/28/24 13:46 Pulse 85 09/28/24 13:46 Resp 18 09/28/24 13:46 BP 115/70 09/28/24 13:46 Pulse Ox 95 09/28/24 13:46 FiO2 Intake & Output 09/27/24 09/28/24 09/28/24 18:59 06:59 18:59 Other: # Voids 4 2 # Bowel Movements 1 - Exam GENERAL EXAM: Alert, active, pleasant 74-year-old male, sitting up in bed, on room air oxygen, comfortable in no apparent distress. HEAD: Normocephalic. EYES: Normal reaction of pupils, equal size. NOSE: Clear with pink turbinates. THROAT: No erythema or exudates. NECK: No masses, no JVD. CHEST: No chest wall deformity. LUNGS: Equal air entry with few scattered rhonchi. CVS: S1 and S2 normal with no audible murmur, regular rhythm. ABDOMEN: No hepatosplenomegaly, normal bowel sounds, no guarding or rigidity. SPINE: No scoliosis or deformity SKIN: No rashes CENTRAL NERVOUS SYSTEM: No focal deficits, tone is normal in all 4 extremities. EXTREMITIES: There is no peripheral edema. No clubbing, no cyanosis. Peripheral pulses are intact. - Labs CBC & Chem 7: 09/27/24 02:42 09/27/24 02:42 Labs: Microbiology - Last 24 Hours (Table) 09/26/24 21:13 Blood Culture Gram Stain - Preliminary Blood Blood Culture - Preliminary Bacillus species Not Anthracis Molecular ID Assessment and Plan Assessment: Acute COPD exacerbation Bronchoscopy with BAL from 07/06/24 isolating Pseudomonas aeruginosa, Mycobacterium chimera intracellular group and Stacie Nontuberculous mycobacterial infection, patient previously referred to infectious disease for antibiotic management Acute on chronic dyspnea, secondary to above Frequent pulmonary infection/pneumonia, with history of bronchoscopy done 12/27 isolating pseudomonas aeruginosa/Klebsiella oxytoca, as well as, Mycobacterium chimera intracellular group History bilateral pulmonary nodular opacities, with reticular infiltrates, and mediastinal/hilar lymphadenopathy Severe COPD, with a baseline FEV1 32% of predicted Former tobacco dependence, quit in 2005 History of hyperlipidemia Hypertension History of paroxysmal atrial fibrillation, normally anticoagulated on Eliquis History of localized squamous cell skin cancer, 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 Number of minutes spent on the visit: 10 Dictation was produced using [employer] dictation software. Please excuse any grammatical, word or spelling errors.
--- NOTE | 2024-09-28 16:39 | P.PN ---
Subjective Progress Note Date: 09/28/24 Principal diagnosis: Reason for follow-up is Pseudomonas tracheobronchitis/DANIEL infection Patient is a 74-year-old male with past medical history significant for severe COPD, frequent pneumonias. He underwent bronchoscopy on 01/13/2024, with findings isolated Pseudomonas aeruginosa and Klebsiella oxytoca, as well as, Mycobacterium chimera intracellular group. Cytology from [facility] unremarkable for malignant cells. He was maintained on a prolonged course of quinolones by pulmonology. Repeat bronchoscopy with BAL durung hospitalization on 07/06/24 was positive for Pseudomonas aeruginosa, Mycobacterium chimera intracellular group and Staice. CT chest had scattered pulmonary nodules and increased interstitial densities bilaterally, and thought to be infectious in nature. On presentation to the hospital, he describes shortness of breath few days, persistent cough with colored brown mucus and right-sided chest discomfort with inspiration and coughing. CT chest angiogram with findings of no evidence of pulmonary embolism, and several stable pulmonary nodules from previous CT with new right lung peripheral nodular opacity/consolidation. Infectious versus inflammatory process, also, stable mediastinal and right hilar adenopathy. Most recent sputum culture completed on 09/19/2024 positive for Pseudomonas aeruginosa and acid-fast bacilli. He is afebrile. Labs on admission CBC with a WBC count of 10.8, creatinine 0.84. He is currently resting comfortably on room air. He has a productive cough with brown sputum. Today 09/28/2024, patient has no complaints of shortness of breath, nausea, vomiting. He attests to a mild dry unproductive cough. He remains afebrile, on room air O2 saturation 97%. WBC 10.0, creatinine 0.66. Preliminary blood culture positive for Bacillus. Objective - Vital Signs Vital signs: Vital Signs Temp 97.3 F L 09/28/24 06:55 Pulse 92 09/28/24 08:23 Resp 18 09/28/24 06:55 BP 117/62 09/28/24 06:55 Pulse Ox 97 09/28/24 08:12 FiO2 Intake & Output 09/27/24 09/28/24 09/28/24 18:59 06:59 18:59 Other: # Voids 4 2 # Bowel Movements 1 - Exam GENERAL DESCRIPTION: An elderly male lying in bed in no distress RESPIRATORY SYSTEM: Unlabored breathing , decreased breath sounds at bases HEART: S1 S2 regular rate and rhythm , ABDOMEN: Soft , no tenderness EXTREMITIES: No edema feet - Labs CBC & Chem 7: 09/29/24 03:52 09/29/24 03:52 Labs: Microbiology - Last 24 Hours (Table) 09/26/24 21:13 Blood Culture Gram Stain - Preliminary Blood Blood Culture - Preliminary Molecular ID Assessment and Plan (1) COPD (chronic obstructive pulmonary disease) Current Visit: Yes Status: Acute Code(s): J44.9 - CHRONIC OBSTRUCTIVE PULMONARY DISEASE, UNSPECIFIED SNOMED Code(s): 07067440 (2) Pneumonia Current Visit: Yes Status: Acute Code(s): J18.9 - PNEUMONIA, UNSPECIFIED ORGANISM SNOMED Code(s): 056254338 (3) Acute exacerbation of chronic obstructive pulmonary disease Current Visit: No Status: Acute Code(s): J44.1 - CHRONIC OBSTRUCTIVE PULMONARY DISEASE W (ACUTE) EXACERBATION SNOMED Code(s): 614428388 (4) Pulmonary nodules Current Visit: No Status: Acute Code(s): R91.8 - OTHER NONSPECIFIC ABNORMAL FINDING OF LUNG FIELD SNOMED Code(s): 262887873 (5) Mycobacterium avium infection Current Visit: Yes Status: Acute Code(s): A31.0 - PULMONARY MYCOBACTERIAL INFECTION SNOMED Code(s): 378334330 Plan: 1. Patient presented to hospital with increased shortness of breath and productive cough, with brown sputum. CT of the chest without pulmonary em bolism, and findings of pulmonary nodules which were present on previous imaging, and findings concerning for new nodules. His last sputum culture was positive for acid past bacilli and Pseudomonas, and had findings positive for Mycobacterium chimaera found in sputum 01/13/2024, and Pseudomonas 01/11/2024. He has been maintained on quinolones as an outpatient. 2. Patient currently on cefepime, and bronchodilators and Solu-Medrol for COPD exacerbation. 3. Given the CTA chest and recent sputum culture findings, the patient has DANIEL. He will continue Cefepime. Patient shows clinical improvement with cefepime, and blood culture with bacillus is thought to be contaminant. 4. Per pharmacy, ethambutol is not available in the hospital. Zithromax, rifampin and ethambutol will be started upon discharge or as outpatient for coverage of Mycobacterium chimaera. Micheal Mejia MD Internal Medicine Resident, PGY2 Infectious disease service Patient was personally seen and examined Case discussed with the resident physician agree with the documentation The patient remains to be afebrile the patient is breathing more comfortably we will keep the patient on cefepime while inpatient in addition to the steroids and bronchodilator hopefully will not need any IV antibiotics on discharge cornell willson MD Dictation was produced using [employer] dictation software. please excuse any grammatical, word or spelling errors. Time with Patient: Less than 30
--- NOTE | 2024-09-29 08:24 | P.PN ---
Subjective Progress Note Date: 09/29/24 Jovon Oconnor, is a 74-year-old male who presented to [facility] emergency room with a chief complaint of cough and shortness of breath He was evaluated in the emergency room vital examination on presentation revealed temp 97.6, heart 92, respiratory rate 14, blood pressure 108/69 with a pulse ox of 92% on room air Laboratory data reveals white blood cell 10.83, hemoglobin 15.3, sodium 142, creatinine 0.84 bun 13 BNP 174 and troponin negative Testing in the emergency room revealed chest CTA completed showing no evidence for pulmonary embolism several stable pulmonary nodules from prior exam with few new right lung para Bernard nodule opacities these may represent infectious or i nflammatory nodules with malignancy not excluded moderate to advanced emphysematous and pulmonary fibrotic changes Patient was admitted to medical floor for further evaluation and treatment. 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 Patient has had multiple bronchoscopies in the past follows regularly with infectious disease and pulmonary services. Additional medical history includes A-fib, asthma, cancer, COPD, eye disorder, hearing disorder, hyperlipidemia, respiratory disorder and ex-smoker On review of systems patient is resting comfortably in bed. Patient denies chest pain. Patient denies nausea vomiting or diarrhea. Patient denies any urinary burning or frequency patient does report productive cough with brown sputum On 09/28/2024 patient is alert and oriented x 3. Patient denies chest pain. Patient does report some shortness of breath with activity. Patient denies nausea vomiting or diarrhea. Patient denies any urinary burning or frequency. Pulmonary and infectious disease services are following. Patient did have positive blood culture but likely contamination. On 09/29/2024 patient is alert and oriented x 3. Patient still reporting some p roductive cough. Patient denies chest pain. Patient denies nausea vomiting or diarrhea. Patient denies any urinary burning or frequency. Patient remains on Maxipime and IV Solu-Medrol pulmonary and infectious disease services are following. Current vital signs temp 97.9, heart rate 60, respiratory rate 18, blood pressure 125/77 with pulse ox of 95% on room air Objective - Vital Signs Vital signs: Vital Signs Temp 97.6 F 09/29/24 07:05 Pulse 57 L 09/29/24 07:05 Resp 18 09/29/24 07:05 BP 125/77 09/29/24 07:05 Pulse Ox 95 09/29/24 07:05 FiO2 Intake & Output 09/28/24 09/29/24 09/29/24 18:59 06:59 18:59 Intake Total 2270 Balance 2270 Intake: Intake, IV Titration 1630 Amount Cefepime 2 gm In Sodium 200 Chloride 0.9% 100 ml @ 25 mls/hr IVPB Q8H [facility] Rx#: [id number] Lactated Ringers 1,000 ml 1430 @ 130 mls/hr IV .Q7H42M [facility] Rx#:[id number] Oral 640 Other: # Voids 6 # Bowel Movements 1 - Labs CBC & Chem 7: 09/27/24 02:42 09/27/24 02:42 Labs: Microbiology - Last 24 Hours (Table) 09/26/24 21:13 Blood Culture Gram Stain - Preliminary Blood Blood Culture - Preliminary Bacillus species Not Anthracis Molecular ID
[2024-09-29 09:32] LABS: Basophils # (A) 0.02 X 10*3/uL (0.00-0.10); Basophils % (A) 0.2 %; Eosinophils # (A) 0 X 10*3/uL (0.04-0.35); Eosinophils % (A) 0 %; HCT 42.1 % (39.6-50.0); HGB 13.2 g/dL (13.0-17.0); Immature Grans, Automated 0.70 %; Lymphocytes # (A) 1.00 X 10*3/uL (0.90-5.00); Lymphocytes % (A) 9.7 %; MCH 27.7 pg (27.0-32.0); MCHC 31.4 g/dL (32.0-37.0); MCV 88.3 FL (80.0-97.0); Monocytes # (A) 0.33 X 10*3/uL (0.20-1.00); Monocytes % (A) 3.2 %; NRBC Per 100 WBC 0 X 10*3/uL (0.00-0.01); Neutrophils # (A) 8.87 X 10*3/uL (1.80-7.70); Neutrophils % (A) 86.2 %; Platelet Count 332 X 10*3/uL (140-440); RBC 4.77 X 10*6/uL (4.40-5.60); RDW 12.9 % (11.5-14.5); WBC 10.29 X 10*3/uL (4.50-10.00)
[2024-09-29 09:43] LABS: ALT 21 U/L (10-49); AST 30 U/L (14-35); Albumin 3.5 g/dL (3.8-4.9); Albumin/Globulin Ratio 1.35 Ratio (1.60-3.17); Alkaline Phosphatase 78 U/L (41-126); Anion Gap 11.00 mmol/L (4.00-12.00); BUN/Creat Ratio 18.88 Ratio (12.00-20.00); Blood Urea Nitrogen 15.1 mg/dL (9.0-27.0); Calcium 9.0 mg/dL (8.7-10.3); Carbon Dioxide 24.0 mmol/L (21.6-31.8); Chloride 109 mmol/L (96-109); Globulin 2.6 g/dL (1.6-3.3); Glucose 109 mg/dL (70-110); Potassium 4.5 mmol/L (3.5-5.5); Sodium 144 mmol/L (135-145); Total Protein 6.1 g/dL (6.2-8.2)
[2024-09-29] MEDS ORDERED: BENZONATATE 100 MG CAP PO PRN (10:04)
--- NOTE | 2024-09-29 13:19 | P.PN ---
Subjective Progress Note Date: 09/29/24 Patient is a 74-year-old male with past medical history significant for severe COPD with a baseline FEV1 32% of predicted, former tobacco dependence, and frequent pneumonias/pulmonary infections. Recently, worked up for scattered pulmonary nodules and increased interstitial densities bilaterally, which were thought to be infectious in nature. Previous bronchoscopy done 01/13/2024 isolated Pseudomonas aeruginosa and Klebsiella oxytoca, as well as, Mycobacterium chimera intracellular group. Cytology from [place] unremarkable for malignant cells. He has been following with Dr. Ma in the pulmonary office. Previously maintained on a prolonged course of quinolones. More recently, Dr. Ma performed a follow-up bronchoscopy with BAL on 07/06/24, which was positive for Pseudomonas aeruginosa, Mycobacterium chimera intracellular group and Stacie. Was referred to infectious disease for anti biotic management. Over the last 3-4 days, developing increased work of breathing, persistent cough with colored brown mucus and right-sided chest discomfort with inspiration and coughing. Chest CT angiogram did not show any evidence of pulmonary embolism. There were several stable pulmonary nodules from prior examination with few new right lung peripheral nodular opacities/consolidations from prior. Concerning for infectious process. Stable mediastinal right hilar adenopathy from prior exam. Moderate to advanced emphysematous and pulmonary fibrotic changes were additionally noted. Most recent sputum culture positive for Pseudomonas aeruginosa and acid-fast bacilli. Labs including CBC with a WC count of 10.8, hemoglobin 15.3, platelets 368. CMP is unremarkable, electrolytes WDL, creatinine 0.84, glucose 112. Lactic 1.5. LFTs not elevated. Troponin less than 0.012. NT proBNP 174. Patient currently being evaluated in the ED. He is currently resting comfortably on room air. Has congested cough. Reporting pleuritic-like chest pain as described above. Also cough with brown sputum production. Denies any hemoptysis. Denies any fevers or chills. Denies any weight loss, fatigue, sweats. Current vital signs are stable. The patient is seen today September 28, 2024 in follow-up on the regular medical floor. He is currently sitting up in bed. Awake and alert in no acute d istress. Denies any worsening shortness of breath, cough or congestion. He is maintaining good O2 saturations in the 90s on room air oxygen. Blood culture revealing bacillus species not anthracis. He remains on DuoNeb inhalations, Symbicort, Solu-Medrol. Continued on cefepime. Anticoagulated with Eliquis. No new labs today. The patient is seen today September 29, 2024 in follow-up on the regular medical floor. He is awake and alert in no acute distress. Resting quite comfortably in bed. Denies any worsening shortness of breath, cough or congestion. He remains on DuoNeb inhalations, Symbicort, Solu-Medrol. Remains on antibiotics in the form of cefepime. Continued on anticoagulation with Eliquis. Tessalon Perles for his cough. Blood culture revealed no growth. White count 10.2. H emoglobin 13.2. Platelets 332. Sodium 144. Potassium 4.5. Bicarb 24. BUN 15. Creatinine 0.8. Glucose 109. Objective - Vital Signs Vital signs: Vital Signs Temp 97.6 F 09/29/24 07:05 Pulse 82 09/29/24 10:25 Resp 18 09/29/24 07:05 BP 125/77 09/29/24 07:05 Pulse Ox 95 09/29/24 07:05 FiO2 Intake & Output 09/28/24 09/29/24 09/29/24 18:59 06:59 18:59 Intake Total 2270 Balance 2270 Intake: Intake, IV Titration 1630 Amount Cefepime 2 gm In Sodium 200 Chloride 0.9% 100 ml @ 25 mls/hr IVPB Q8H [facility] Rx#: [id number] Lactated Ringers 1,000 ml 1430 @ 130 mls/hr IV .Q7H42M [facility] Rx#:[id number] Oral 640 Other: Voiding Method Toilet # Voids 6 # Bowel Movements 1 - Exam GENERAL EXAM: Alert, 74-year-old male, sitting up in bed, on room air oxygen, comfortable in no apparent distress. HEAD: Normocephalic. EYES: Normal reaction of pupils, equal size. NOSE: Clear with pink turbinates. THROAT: No erythema or exudates. NECK: No masses, no JVD. CHEST: No chest wall deformity. LUNGS: Equal air entry with few scattered rhonchi. CVS: S1 and S2 normal with no audible murmur, regular rhythm. ABDOMEN: No hepatosplenomegaly, normal bowel sounds, no guarding or rigidity. SPINE: No scoliosis or deformity SKIN: No rashes CENTRAL NERVOUS SYSTEM: No focal deficits, tone is normal in all 4 extremities. EXTREMITIES: There is no peripheral edema. No clubbing, no cyanosis. Peripheral pulses are intact. - Labs CBC & Chem 7: 09/29/24 03:52 09/29/24 03:52 Labs: Abnormal Lab Results - Last 24 Hours (Table) 09/29/24 09/29/24 Range/Units 03:52 03:52 WBC 10.29 H (4.50-10.00) X 10*3/uL MCHC 31.4 L (32.0-37.0) g/dL Immature Gran # 0.07 H (0.00-0.04) X 10*3/uL Neutrophils # 8.87 H (1.80-7.70) X 10*3/uL Eosinophils # 0 L (0.04-0.35) X 10*3/uL Total Bilirubin <0.2 L (0.3-1.2) mg/dL Total Protein 6.1 L (6.2-8.2) g/dL Albumin 3.5 L (3.8-4.9) g/dL Albumin/Globulin Ratio 1.35 L (1.60-3.17) Ratio Microbiology - Last 24 Hours (Table) 09/26/24 21:13 Blood Culture Gram Stain - Final Blood Blood Culture - Final Bacillus species Not Anthracis Coagulase Negative Staph Molecular ID Assessment and Plan Assessment: Acute COPD exacerbation Bronchoscopy with BAL from 07/06/24 isolating Pseudomonas aeruginosa, Mycobacterium chimera intracellular group and Stacie Nontuberculous mycobacterial infection, patient previously referred to infectious disease for antibiotic management Acute on chronic dyspnea, secondary to above Frequent pulmonary infection/pneumonia, with history of bronchoscopy done 01/13/2024 isolating pseudomonas aeruginosa/Klebsiella oxytoca, as well as, Mycobacterium chimera intracellular group History bilateral pulmonary nodular opacities, with reticular infiltrates, and mediastinal/hilar lymphadenopathy Severe COPD, with a baseline FEV1 32% of predicted Former tobacco dependence, quit in 2005 History of hyperlipidemia Hypertension History of paroxysmal atrial fibrillation, normally anticoagulated on Eliquis History of localized squamous cell skin cancer, 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 We will continue to follow I have personally seen and examined the patient, performed the documentation and the assessment and plan as written. Number of minutes spent on the visit: 10 Dictation was produced using [employer] dictation software. Please excuse any grammatical, word or spelling errors.
--- NOTE | 2024-09-29 15:39 | P.PN ---
Subjective Progress Note Date: 09/29/24 Principal diagnosis: Reason for follow-up is Pseudomonas tracheobronchitis/DANIEL infection patient is a 74-year-old male with past medical history significant for severe COPD, frequent pneumonias. He underwent bronchoscopy on 01/13/2024, with findings isolated Pseudomonas aeruginosa and Klebsiella oxytoca, as well as, Mycobacterium chimera intracellular group. Presenting to the hospital increasing shortness of breath and cough has been diagnosed with tracheobronchitis with last sputum culture positive for Pseudomonas and DANIEL. On today's evaluation that is 09/29/2024, the patient continues to be afebrile, the patient is on room air and breathing comfortably, the Pt denies having any chest pain and cough is decreased in intensity, the patient denies having any abdominal pain no vomiting or any diarrhea. Patient white count is 10.29 creatinine 0.8 blood culture with bacillus species not than clinics and coagulase-negative staph Objective - Vital Signs Vital signs: Vital Signs Temp 97.8 F 09/29/24 13:38 Pulse 78 09/29/24 13:51 Resp 18 09/29/24 13:38 BP 128/74 09/29/24 13:38 Pulse Ox 97 09/29/24 13:38 FiO2 Intake & Output 09/28/24 09/29/24 09/29/24 18:59 06:59 18:59 Intake Total 2270 Balance 2270 Intake: Intake, IV Titration 1630 Amount Cefepime 2 gm In Sodium 200 Chloride 0.9% 100 ml @ 25 mls/hr IVPB Q8H [facility] Rx#: [id number] Lactated Ringers 1,000 ml 1430 @ 130 mls/hr IV .Q7H42M [facility] Rx#:[id number] Oral 640 Other: Voiding Method Toilet # Voids 6 # Bowel Movements 1 - Exam GENERAL DESCRIPTION: An elderly male lying in bed in no distress RESPIRATORY SYSTEM: Unlabored breathing , decreased breath sounds at bases HEART: S1 S2 regular rate and rhythm , ABDOMEN: Soft , no tenderness EXTREMITIES: No edema feet - Labs CBC & Chem 7: 09/29/24 03:52 09/29/24 03:52 Labs: Abnormal Lab Results - Last 24 Hours (Table) 09/29/24 09/29/24 Range/Units 03:52 03:52 WBC 10.29 H (4.50-10.00) X 10*3/uL MCHC 31.4 L (32.0-37.0) g/dL Immature Gran # 0.07 H (0.00-0.04) X 10*3/uL Neutrophils # 8.87 H (1.80-7.70) X 10*3/uL Eosinophils # 0 L (0.04-0.35) X 10*3/uL Total Bilirubin <0.2 L (0.3-1.2) mg/dL Total Protein 6.1 L (6.2-8.2) g/dL Albumin 3.5 L (3.8-4.9) g/dL Albumin/Globulin Ratio 1.35 L (1.60-3.17) Ratio Microbiology - Last 24 Hours (Table) 09/26/24 21:13 Blood Culture Gram Stain - Final Blood Blood Culture - Final Bacillus species Not Anthracis Coagulase Negative Staph Molecular ID Assessment and Plan (1) COPD (chronic obstructive pulmonary disease) Current Visit: Yes Status: Acute Code(s): J44.9 - CHRONIC OBSTRUCTIVE PULMONARY DISEASE, UNSPECIFIED SNOMED Code(s): 94205106 (2) Pneumonia Current Visit: Yes Status: Acute Code(s): J18.9 - PNEUMONIA, UNSPECIFIED ORGANISM SNOMED Code(s): 205541011 (3) Acute exacerbation of chronic obstructive pulmonary disease Current Visit: No Status: Acute Code(s): J44.1 - CHRONIC OBSTRUCTIVE PULMONARY DISEASE W (ACUTE) EXACERBATION SNOMED Code(s): 405385003 (4) Pulmonary nodules Current Visit: No Status: Acute Code(s): R91.8 - OTHER NONSPECIFIC ABNORMAL FINDING OF LUNG FIELD SNOMED Code(s): 188291898 (5) Mycobacterium avium infection Current Visit: Yes Status: Acute Code(s): A31.0 - PULMONARY MYCOBACTERIAL INFECTION SNOMED Code(s): 154398693 Plan: 1. Patient presented to hospital with increased shortness of breath and productive cough, with brown sputum. CT of the chest without pulmonary embolism, and findings of pulmonary nodules which were present on previous imaging, and findings concerning for new nodules. Likely admitted to hospital because of COPD exacerbation/tracheobronchitis 2positive blood culture with bacillus species and COVID is new staph likely skin contamination 3patient slowly clinically improving to continue with the cefepime along with steroids and Bronkodyl per pulmonary hopefully will not need any antibiotic on discharge 4patient will be started on rifampin and Zithromax ethambutol 3 times a week on discharge as pharmacy do not have integral role in stock Dictation was produced using [employer] dictation software. please excuse any grammatical, word or spelling errors. Time with Patient: Less than 30
[2024-09-30 03:40] LABS: Basophils # (A) 0.02 10*3/uL (0.00-0.10); Basophils % (A) 0.2 %; Eosinophils # (A) 0.00 10*3/uL (0.04-0.35); Eosinophils % (A) 0.0 %; HCT 40.6 % (39.6-50.0); HGB 12.6 g/dL (13.0-17.0); Lymphocytes # (A) 1.03 10*3/uL (0.90-5.00); Lymphocytes % (A) 10.2 %; MCH 28.3 pg (27.0-32.0); MCHC 31.0 g/dL (32.0-37.0); Monocytes # (A) 0.37 10*3/uL (0.20-1.00); Monocytes % (A) 3.6 %; Neutrophils # (A) 8.57 10*3/uL (1.80-7.70); Neutrophils % (A) 84.5 %; Platelet Count 270 10*3/uL (140-440); RBC 4.45 10*6/uL (4.40-5.60); RDW 12.8 % (11.5-14.5); WBC 10.14 10*3/uL (4.50-10.00)
[2024-09-30 03:42] LABS: MCV 91.2 fL (80.0-97.0)
--- NOTE | 2024-09-30 07:30 | XR ---
EXAMINATION TYPE: XR chest 1V portable DATE OF EXAM: 09/30/2024 5:15 AM COMPARISON: Chest radiographs from 09/26/2024. CLINICAL INDICATION: Male, 74 years old with history of copd; TECHNIQUE: XR chest 1V portable Frontal view of the chest. FINDINGS: Degeneration of the right upper and right lower lung airspace opacities. Lungs/Pleura: Prominent interstitial lung markings are seen scattered throughout the lungs with elizabeth ening of the diaphragm and increased lucency of the lung apices. No evidence of focal consolidation, pneumothorax or pleural effusion. Pulmonary vascularity: Unremarkable. Heart/mediastinum: Cardiomediastinal silhouette is unremarkable. Musculoskeletal: No acute osseous pathology. IMPRESSION: Multifocal airspace opacities concerning for pneumonia. Improved aeration of 2 opacities in the right lung. [facility], , 09/30/2024 7:28 AM
--- NOTE | 2024-09-30 10:25 | P.PN ---
Subjective Progress Note Date: 09/30/24 Jovon Oconnor, is a 74-year-old male who presented to [facility] emergency room with a chief complaint of cough and shortness of breath He was evaluated in the emergency room vital examination on presentation revealed temp 97.6, heart 92, respiratory rate 14, blood pressure 108/69 with a pulse ox of 92% on room air Laboratory data reveals white blood cell 10.83, hemoglobin 15.3, sodium 142, creatinine 0.84 bun 13 BNP 174 and troponin negative Testing in the emergency room revealed chest CTA completed showing no evidence for pulmonary embolism several stable pulmonary nodules from prior exam with few new right lung para Bernard nodule opacities these may represent infectious or i nflammatory nodules with malignancy not excluded moderate to advanced emphysematous and pulmonary fibrotic changes Patient was admitted to medical floor for further evaluation and treatment. 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 Patient has had multiple bronchoscopies in the past follows regularly with infectious disease and pulmonary services. Additional medical history includes A-fib, asthma, cancer, COPD, eye disorder, hearing disorder, hyperlipidemia, respiratory disorder and ex-smoker On review of systems patient is resting comfortably in bed. Patient denies chest pain. Patient denies nausea vomiting or diarrhea. Patient denies any urinary burning or frequency patient does report productive cough with brown sputum On 09/28/2024 patient is alert and oriented x 3. Patient denies chest pain. Patient does report some shortness of breath with activity. Patient denies nausea vomiting or diarrhea. Patient denies any urinary burning or frequency. Pulmonary and infectious disease services are following. Patient did have positive blood culture but likely contamination. On 09/29/2024 patient is alert and oriented x 3. Patient still reporting some p roductive cough. Patient denies chest pain. Patient denies nausea vomiting or diarrhea. Patient denies any urinary burning or frequency. Patient remains on Maxipime and IV Solu-Medrol pulmonary and infectious disease services are following. Current vital signs temp 97.9, heart rate 60, respiratory rate 18, blood pressure 125/77 with pulse ox of 95% on room air On 09/30/2024 patient is alert and oriented x 3. Patient reports improvement with shortness of breath and cough. Patient rosey on IV antibiotics awaiting final plan from infectious disease and pulmonary services. Current vital signs temp 98.0, heart 70, respiratory rate 18, blood pressure 145/70 with pulse ox of 96% on room air patient denies chest pain. Patient denies nausea vomiting or diarrhea. Patient denies any urinary burning or frequency Objective - Vital Signs Vital signs: Vital Signs Temp 98.0 F 09/30/24 07:12 Pulse 70 09/30/24 07:12 Resp 18 09/30/24 07:12 BP 145/70 09/30/24 07:12 Pulse Ox 96 09/30/24 07:12 FiO2 Intake & Output 09/29/24 09/30/24 09/30/24 18:59 06:59 18:59 Other: Voiding Method Toilet Toilet # Voids 4 3 # Bowel Movements 1 - Exam In general patient is alert and oriented Ã-3 in no distress HEENT head normocephalic and atraumatic Neck is supple no JVD no goiter no lymphadenopathy no carotid bruit Chest examination is clear to auscultation no crackles no wheezing Cardiac exam reveals regular heart sounds S1 and S2 no gallops no murmurs Abdomen is soft nontender no organomegaly with normal bowel sounds Extremity exam reveals no edema no cyanosis or clubbing Neurological examination reveals no gross focal deficits - Labs CBC & Chem 7: 09/30/24 03:20 09/29/24 03:52 Labs: Abnormal Lab Results - Last 24 Hours (Table) 09/30/24 Range/Units 03:20 WBC 10.14 H (4.50-10.00) 10*3/uL Hgb 12.6 L (13.0-17.0) g/dL MCHC 31.0 L (32.0-37.0) g/dL Immature Gran # 0.15 H (0.00-0.04) 10*3/uL Neutrophils # 8.57 H (1.80-7.70) 10*3/uL Eosinophils # 0.00 L (0.04-0.35) 10*3/uL Microbiology - Last 24 Hours (Table) 09/26/24 21:13 Blood Culture Gram Stain - Final Blood Blood Culture - Final Bacillus species Not Anthracis Coagulase Negative Staph Molecular ID Assessment and Plan Assessment: Shortness of breath secondary to COPD exacerbation and pneumonia History of 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 GI prophylax Protonix Pulmonary and infectious disease services consulted Patient started on IV steroids and IV antibiotics Blood and sputum cultures ordered
[2024-09-30 10:37] LABS: ALT 36 U/L (10-49); AST 36 U/L (14-35); Albumin 3.2 g/dL (3.8-4.9); Albumin/Globulin Ratio 1.39 Ratio (1.60-3.17); Alkaline Phosphatase 69 U/L (41-126); Anion Gap 11.50 mmol/L (4.00-12.00); BUN/Creat Ratio 20.25 Ratio (12.00-20.00); Blood Urea Nitrogen 16.2 mg/dL (9.0-27.0); Calcium 8.6 mg/dL (8.7-10.3); Carbon Dioxide 21.5 mmol/L (21.6-31.8); Chloride 110 mmol/L (96-109); Globulin 2.3 g/dL (1.6-3.3); Glucose 123 mg/dL (70-110); Potassium 4.4 mmol/L (3.5-5.5); Sodium 143 mmol/L (135-145); Total Protein 5.5 g/dL (6.2-8.2)
--- NOTE | 2024-09-30 10:53 | P.PN ---
Subjective Progress Note Date: 09/30/24 Patient is a 74-year-old male with past medical history significant for severe COPD with a baseline FEV1 32% of predicted, former tobacco dependence, and frequent pneumonias/pulmonary infections. Recently, worked up for scattered pulmonary nodules and increased interstitial densities bilaterally, which were thought to be infectious in nature. Previous bronchoscopy done 01/13/2024 isolated Pseudomonas aeruginosa and Klebsiella oxytoca, as well as, Mycobacterium chimera intracellular group. Cytology from [place] unremarkable for malignant cells. He has been following with Dr. Ma in the pulmonary office. Previously maintained on a prolonged course of quinolones. More recently, Dr. Ma performed a follow-up bronchoscopy with BAL on 07/06/24, which was positive for Pseudomonas aeruginosa, Mycobacterium chimera intracellular group and Stacie. Was referred to infectious disease for anti biotic management. Over the last 3-4 days, developing increased work of breathing, persistent cough with colored brown mucus and right-sided chest discomfort with inspiration and coughing. Chest CT angiogram did not show any evidence of pulmonary embolism. There were several stable pulmonary nodules from prior examination with few new right lung peripheral nodular opacities/consolidations from prior. Concerning for infectious process. Stable mediastinal right hilar adenopathy from prior exam. Moderate to advanced emphysematous and pulmonary fibrotic changes were additionally noted. Most recent sputum culture positive for Pseudomonas aeruginosa and acid-fast bacilli. Labs including CBC with a WC count of 10.8, hemoglobin 15.3, platelets 368. CMP is unremarkable, electrolytes WDL, creatinine 0.84, glucose 112. Lactic 1.5. LFTs not elevated. Troponin less than 0.012. NT proBNP 174. Patient currently being evaluated in the ED. He is currently resting comfortably on room air. Has congested cough. Reporting pleuritic-like chest pain as described above. Also cough with brown sputum production. Denies any hemoptysis. Denies any fevers or chills. Denies any weight loss, fatigue, sweats. Current vital signs are stable. The patient is seen today September 28, 2024 in follow-up on the regular medical floor. He is currently sitting up in bed. Awake and alert in no acute d istress. Denies any worsening shortness of breath, cough or congestion. He is maintaining good O2 saturations in the 90s on room air oxygen. Blood culture revealing bacillus species not anthracis. He remains on DuoNeb inhalations, Symbicort, Solu-Medrol. Continued on cefepime. Anticoagulated with Eliquis. No new labs today. The patient is seen today September 29, 2024 in follow-up on the regular medical floor. He is awake and alert in no acute distress. Resting quite comfortably in bed. Denies any worsening shortness of breath, cough or congestion. He remains on DuoNeb inhalations, Symbicort, Solu-Medrol. Remains on antibiotics in the form of cefepime. Continued on anticoagulation with Eliquis. Tessalon Perles for his cough. Blood culture revealed no growth. White count 10.2. H emoglobin 13.2. Platelets 332. Sodium 144. Potassium 4.5. Bicarb 24. BUN 15. Creatinine 0.8. Glucose 109. The patient is seen today September 30, 2024 in follow-up on the regular medical floor. He is currently sitting up in bed. Awake and alert in no acute distress. Denies any worsening shortness of breath, cough or congestion. Continues to maintain good O2 saturations in the mid 90s on room air. He is afebrile. Hemodynamically stable. Blood culture was positive for bacillus species not anthracis. He remains on cefepime. Chest x-ray continues to show multifocal airspace opacities with improvement in the right lung. White count 10.1. Hemoglobin 12.6. Platelets 270. Sodium 143. Potassium 4.4. Bicarb 22. BUN 16. Creatinine 0.8. Glucose 123. He remains on DuoNeb inhalations, Symbicort, Solu-Medrol. Remains on lactated Ringer's at 130 mL/h. Tessalon Perles as needed for his cough. Anticoagulated with Eliquis. Objective - Vital Signs Vital signs: Vital Signs Temp 98.0 F 09/30/24 07:12 Pulse 70 09/30/24 07:12 Resp 18 09/30/24 07:12 BP 145/70 09/30/24 07:12 Pulse Ox 96 09/30/24 07:12 FiO2 Intake & Output 09/29/24 09/30/24 09/30/24 18:59 06:59 18:59 Other: Voiding Method Toilet Toilet # Voids 4 3 # Bowel Movements 1 - Exam GENERAL EXAM: Alert, very pleasant 74-year-old male, sitting up in bed, on room air oxygen, in no apparent distress. HEAD: Normocephalic. EYES: Normal reaction of pupils, equal size. NOSE: Clear with pink turbinates. THROAT: No erythema or exudates. NECK: No masses, no JVD. CHEST: No chest wall deformity. LUNGS: Equal air entry with few scattered rhonchi. CVS: S1 and S2 normal with no audible murmur, regular rhythm. ABDOMEN: No hepatosplenomegaly, normal bowel sounds, no guarding or rigidity. SPINE: No scoliosis or deformity SKIN: No rashes CENTRAL NERVOUS SYSTEM: No focal deficits, tone is normal in all 4 extremities. EXTREMITIES: There is no peripheral edema. No clubbing, no cyanosis. Peripheral pulses are intact. - Labs CBC & Chem 7: 09/30/24 03:20 09/30/24 03:26 Labs: Abnormal Lab Results - Last 24 Hours (Table) 09/30/24 09/30/24 Range/Units 03:20 03:26 WBC 10.14 H (4.50-10.00) 10*3/uL Hgb 12.6 L (13.0-17.0) g/dL MCHC 31.0 L (32.0-37.0) g/dL Immature Gran # 0.15 H (0.00-0.04) 10*3/uL Neutrophils # 8.57 H (1.80-7.70) 10*3/uL Eosinophils # 0.00 L (0.04-0.35) 10*3/uL Chloride 110 H (96-109) mmol/L Carbon Dioxide 21.5 L (21.6-31.8) mmol/L BUN/Creatinine Ratio 20.25 H (12.00-20.00) Ratio Glucose 123 H (70-110) mg/dL Calcium 8.6 L (8.7-10.3) mg/dL Total Bilirubin <0.2 L (0.3-1.2) mg/dL AST 36 H (14-35) U/L Total Protein 5.5 L (6.2-8.2) g/dL Albumin 3.2 L (3.8-4.9) g/dL Albumin/Globulin Ratio 1.39 L (1.60-3.17) Ratio Microbiology - Last 24 Hours (Table) 09/26/24 21:13 Blood Culture Gram Stain - Final Blood Blood Culture - Final Bacillus species Not Anthracis Coagulase Negative Staph Molecular ID Assessment and Plan Assessment: Acute COPD exacerbation Bronchoscopy with BAL from 07/06/24 isolating Pseudomonas aeruginosa, Mycobacterium chimera intracellular group and Stacie Nontuberculous mycobacterial infection, patient previously referred to infectious disease for antibiotic management Acute on chronic dyspnea, secondary to above Frequent pulmonary infection/pneumonia, with history of bronchoscopy done 01/13/2024 isolating pseudomonas aeruginosa/Klebsiella oxytoca, as well as, Mycobacterium chimera intracellular group History bilateral pulmonary nodular opacities, with reticular infiltrates, and mediastinal/hilar lymphadenopathy Severe COPD, with a baseline FEV1 32% of predicted Former tobacco dependence, quit in 2005 History of hyperlipidemia Hypertension History of paroxysmal atrial fibrillation, normally anticoagulated on Eliquis History of localized squamous cell skin cancer, removed by mother's helper Plan: The patient was seen and evaluated Chest x-ray, medications and labs reviewed Continued on cefepime currently Continued on DuoNeb inhalations Continue Symbicort Continue a prednisone taper Anticoagulated with Eliquis Stable and on room air oxygen Increase his activity as tolerated Home once cleared by ID service I have personally seen and examined the patient, performed the documentation and the assessment and plan as written. Number of minutes spent on the visit: 10 Dictation was produced using [employer] dictation software. Please excuse any grammatical, word or spelling errors.
--- NOTE | 2024-09-30 15:12 | P.PN ---
Subjective Progress Note Date: 09/30/24 Principal diagnosis: Reason for follow-up is Pseudomonas tracheobronchitis/DANIEL infection patient is a 74-year-old male with past medical history significant for severe COPD, frequent pneumonias. He underwent bronchoscopy on 01/13/2024, with findings isolated Pseudomonas aeruginosa and Klebsiella oxytoca, as well as, Mycobacterium chimera intracellular group. Presenting to the hospital increasing shortness of breath and cough has been diagnosed with tracheobronchitis with last sputum culture positive for Pseudomonas and DANIEL. On today's evaluation that is 10/01/2023, patient did have a temperature of 98 F this morning and denies having any chills, patient is on room air and breathing comfortably no chest pain and cough has decreased in intensity, the patient did not have any nausea vomiting abdominal pain or any diarrhea. Patient white count is 10.14, creatinine 0.8 chest x-ray multifocal airspace opacity concerning for pneumonia improved aeration of the opacities in the right lung Objective - Vital Signs Vital signs: Vital Signs Temp 98.0 F 09/30/24 07:12 Pulse 80 09/30/24 13:22 Resp 18 09/30/24 07:12 BP 145/70 09/30/24 07:12 Pulse Ox 96 09/30/24 07:12 FiO2 Intake & Output 09/29/24 09/30/24 09/30/24 18:59 06:59 18:59 Other: Voiding Method Toilet Toilet # Voids 4 3 # Bowel Movements 1 - Exam GENERAL DESCRIPTION: An elderly male lying in bed in no distress RESPIRATORY SYSTEM: Unlabored breathing , decreased breath sounds at bases HEART: S1 S2 regular rate and rhythm , ABDOMEN: Soft , no tenderness EXTREMITIES: No edema feet - Labs CBC & Chem 7: 09/30/24 03:20 09/30/24 03:26 Labs: Abnormal Lab Results - Last 24 Hours (Table) 09/30/24 09/30/24 Range/Units 03:20 03:26 WBC 10.14 H (4.50-10.00) 10*3/uL Hgb 12.6 L (13.0-17.0) g/dL MCHC 31.0 L (32.0-37.0) g/dL Immature Gran # 0.15 H (0.00-0.04) 10*3/uL Neutrophils # 8.57 H (1.80-7.70) 10*3/uL Eosinophils # 0.00 L (0.04-0.35) 10*3/uL Chloride 110 H (96-109) mmol/L Carbon Dioxide 21.5 L (21.6-31.8) mmol/L BUN/Creatinine Ratio 20.25 H (12.00-20.00) Ratio Glucose 123 H (70-110) mg/dL Calcium 8.6 L (8.7-10.3) mg/dL Total Bilirubin <0.2 L (0.3-1.2) mg/dL AST 36 H (14-35) U/L Total Protein 5.5 L (6.2-8.2) g/dL Albumin 3.2 L (3.8-4.9) g/dL Albumin/Globulin Ratio 1.39 L (1.60-3.17) Ratio Assessment and Plan (1) COPD (chronic obstructive pulmonary disease) Current Visit: Yes Status: Acute Code(s): J44.9 - CHRONIC OBSTRUCTIVE PULMONARY DISEASE, UNSPECIFIED SNOMED Code(s): 29423321 (2) Pneumonia Current Visit: Yes Status: Acute Code(s): J18.9 - PNEUMONIA, UNSPECIFIED ORGANISM SNOMED Code(s): 899055401 (3) Acute exacerbation of chronic obstructive pulmonary disease Current Visit: No Status: Acute Code(s): J44.1 - CHRONIC OBSTRUCTIVE PULMONARY DISEASE W (ACUTE) EXACERBATION SNOMED Code(s): 197552648 (4) Pulmonary nodules Current Visit: No Status: Acute Code(s): R91.8 - OTHER NONSPECIFIC ABNORMAL FINDING OF LUNG FIELD SNOMED Code(s): 094868302 (5) Mycobacterium avium infection Current Visit: Yes Status: Acute Code(s): A31.0 - PULMONARY MYCOBACTERIAL I NFECTION SNOMED Code(s): 517552081 Plan: 1. Patient presented to hospital with increased shortness of breath and productive cough, with brown sputum. CT of the chest without pulmonary embolism, and findings of pulmonary nodules which were present on previous imaging, and findings concerning for new nodules. Likely admitted to hospital because of COPD exacerbation/tracheobronchitis 2positive blood culture with bacillus species and COVID is new staph likely skin contamination 3patient has shown clinic improvement today is day 5 of his cefepime we will keep him over the weekend by Wednesday he should have received a 7-day course of cefepime for his Pseudomonas tracheobronchitis/pneumonia and there will be no need for IV antibiotic on discharge 4prescription for rifampin and Zithromax ethambutol 3 times a week has been sent to the patient pharmacy that he will start on discharge from the hospital Dictation was produced using [employer] dictation software. please excuse any grammatical, word or spelling errors. Time with Patient: Less than 30
[2024-10-01 09:01] LABS: Basophils # (A) 0.07 X 10*3/uL (0.00-0.10); Basophils % (A) 0.5 %; Eosinophils # (A) 0.02 X 10*3/uL (0.04-0.35); Eosinophils % (A) 0.2 %; HCT 40.9 % (39.6-50.0); HGB 12.7 g/dL (13.0-17.0); Immature Grans, Automated 2.20 %; Lymphocytes # (A) 2.74 X 10*3/uL (0.90-5.00); Lymphocytes % (A) 21.1 %; MCH 27.2 pg (27.0-32.0); MCHC 31.1 g/dL (32.0-37.0); MCV 87.6 FL (80.0-97.0); Monocytes # (A) 1.05 X 10*3/uL (0.20-1.00); Monocytes % (A) 8.1 %; NRBC Per 100 WBC 0 X 10*3/uL (0.00-0.01); Neutrophils # (A) 8.81 X 10*3/uL (1.80-7.70); Neutrophils % (A) 67.9 %; Platelet Count 287 X 10*3/uL (140-440); RBC 4.67 X 10*6/uL (4.40-5.60); RDW 13.0 % (11.5-14.5); WBC 12.98 X 10*3/uL (4.50-10.00)
[2024-10-01 09:04] LABS: ALT 46 U/L (10-49); AST 35 U/L (14-35); Albumin 3.2 g/dL (3.8-4.9); Albumin/Globulin Ratio 1.39 Ratio (1.60-3.17); Alkaline Phosphatase 72 U/L (41-126); Anion Gap 9.90 mmol/L (4.00-12.00); BUN/Creat Ratio 21.38 Ratio (12.00-20.00); Blood Urea Nitrogen 17.1 mg/dL (9.0-27.0); Calcium 8.6 mg/dL (8.7-10.3); Carbon Dioxide 26.1 mmol/L (21.6-31.8); Chloride 106 mmol/L (96-109); Globulin 2.3 g/dL (1.6-3.3); Glucose 90 mg/dL (70-110); Potassium 3.8 mmol/L (3.5-5.5); Sodium 142 mmol/L (135-145); Total Protein 5.5 g/dL (6.2-8.2)
[2024-10-01] MEDS: predniSONE 20 MG TAB PO SCH (09:08)
--- NOTE | 2024-10-01 09:55 | P.PN ---
Subjective Progress Note Date: 10/01/24 Jovon Oconnor, is a 74-year-old male who presented to [facility] emergency room with a chief complaint of cough and shortness of breath He was evaluated in the emergency room vital examination on presentation revealed temp 97.6, heart 92, respiratory rate 14, blood pressure 108/69 with a pulse ox of 92% on room air Laboratory data reveals white blood cell 10.83, hemoglobin 15.3, sodium 142, creatinine 0.84 bun 13 BNP 174 and troponin negative Testing in the emergency room revealed chest CTA completed showing no evidence for pulmonary embolism several stable pulmonary nodules from prior exam with few new right lung para Bernard nodule opacities these may represent infectious or i nflammatory nodules with malignancy not excluded moderate to advanced emphysematous and pulmonary fibrotic changes Patient was admitted to medical floor for further evaluation and treatment. 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 Patient has had multiple bronchoscopies in the past follows regularly with infectious disease and pulmonary services. Additional medical history includes A-fib, asthma, cancer, COPD, eye disorder, hearing disorder, hyperlipidemia, respiratory disorder and ex-smoker On review of systems patient is resting comfortably in bed. Patient denies chest pain. Patient denies nausea vomiting or diarrhea. Patient denies any urinary burning or frequency patient does report productive cough with brown sputum On 09/28/2024 patient is alert and oriented x 3. Patient denies chest pain. Patient does report some shortness of breath with activity. Patient denies nausea vomiting or diarrhea. Patient denies any urinary burning or frequency. Pulmonary and infectious disease services are following. Patient did have positive blood culture but likely contamination. On 09/29/2024 patient is alert and oriented x 3. Patient still reporting some p roductive cough. Patient denies chest pain. Patient denies nausea vomiting or diarrhea. Patient denies any urinary burning or frequency. Patient remains on Maxipime and IV Solu-Medrol pulmonary and infectious disease services are following. Current vital signs temp 97.9, heart rate 60, respiratory rate 18, blood pressure 125/77 with pulse ox of 95% on room air On 09/30/2024 patient is alert and oriented x 3. Patient reports improvement with shortness of breath and cough. Patient rosey on IV antibiotics awaiting final plan from infectious disease and pulmonary services. Current vital signs temp 98.0, heart 70, respiratory rate 18, blood pressure 145/70 with pulse ox of 96% on room air patient denies chest pain. Patient denies nausea vomiting or diarrhea. Patient denies any urinary burning or frequency On 10/01/2024 patient is alert and oriented x 3. Patient reports improvement with cough and shortness of breath. Patient denies chest pain. Patient denies nausea vomiting or diarrhea. Patient denies any urinary burning or frequency. Per infectious disease patient to to stay over the weekend until Wednesday and he will received his 7-day course of cefepime and can be DC'd on oral antibiotics. P.o. antibiotics have been sent to patient's pharmacy for discharge. Objective - Vital Signs Vital signs: Vital Signs Temp 98.2 F 10/01/24 07:08 Pulse 72 10/01/24 08:41 Resp 18 10/01/24 07:08 BP 152/83 10/01/24 07:08 Pulse Ox 95 10/01/24 08:30 FiO2 Intake & Output 09/30/24 10/01/24 10/01/24 18:59 06:59 18:59 Intake Total 820 Balance 820 Intake: Intake, IV Titration 100 Amount Cefepime 2 gm In Sodium 100 Chloride 0.9% 100 ml @ 25 mls/hr IVPB [facility] Rx#: [id number] Oral 720 Other: Voiding Method Toilet # Voids 4 # Bowel Movements 1 - Exam In general patient is alert and oriented Ã-3 in no distress HEENT head normocephalic and atraumatic Neck is supple no JVD no goiter no lymphadenopathy no carotid bruit Chest examination is clear to auscultation no crackles no wheezing Cardiac exam reveals regular heart sounds S1 and S2 no gallops no murmurs Abdomen is soft nontender no organomegaly with normal bowel sounds Extremity exam reveals no edema no cyanosis or clubbing Neurological examination reveals no gross focal deficits - Labs CBC & Chem 7: 10/01/24 05:32 10/01/24 05:32 Labs: Abnormal Lab Results - Last 24 Hours (Table) 09/30/24 10/01/24 10/01/24 Range/Units 03:26 05:32 05:32 WBC 12.98 H (4.50-10.00) X 10*3/uL Hgb 12.7 L (13.0-17.0) g/dL MCHC 31.1 L (32.0-37.0) g/dL Immature Gran # 0.29 H (0.00-0.04) X 10*3/uL Neutrophils # 8.81 H (1.80-7.70) X 10*3/uL Monocytes # 1.05 H (0.20-1.00) X 10*3/uL Eosinophils # 0.02 L (0.04-0.35) X 10*3/uL Chloride 110 H (96-109) mmol/L Carbon Dioxide 21.5 L (21.6-31.8) mmol/L BUN/Creatinine Ratio 20.25 H 21.38 H (12.00-20.00) Ratio Glucose 123 H (70-110) mg/dL Calcium 8.6 L 8.6 L (8.7-10.3) mg/dL Total Bilirubin <0.2 L <0.2 L (0.3-1.2) mg/dL AST 36 H (14-35) U/L Total Protein 5.5 L 5.5 L (6.2-8.2) g/dL Albumin 3.2 L 3.2 L (3.8-4.9) g/dL Albumin/Globulin Ratio 1.39 L 1.39 L (1.60-3.17) Ratio Assessment and Plan Assessment: Shortness of breath secondary to COPD exacerbation and pneumonia History of 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 GI prophylax Protonix Pulmonary and infectious disease services consulted Patient started on IV steroids and IV antibiotics Blood and sputum cultures ordered
--- NOTE | 2024-10-01 12:26 | P.PN ---
Subjective Progress Note Date: 10/01/24 Patient is a 74-year-old male with past medical history significant for severe COPD with a baseline FEV1 32% of predicted, former tobacco dependence, and frequent pneumonias/pulmonary infections. Recently, worked up for scattered pulmonary nodules and increased interstitial densities bilaterally, which were thought to be infectious in nature. Previous bronchoscopy done 01/13/2024 isolated Pseudomonas aeruginosa and Klebsiella oxytoca, as well as, Mycobacterium chimera intracellular group. Cytology from [place] unremarkable for malignant cells. He has been following with Dr. Ma in the pulmonary office. Previously maintained on a prolonged course of quinolones. More recently, Dr. Ma performed a follow-up bronchoscopy with BAL on 07/06/24, which was positive for Pseudomonas aeruginosa, Mycobacterium chimera intracellular group and Stacie. Was referred to infectious disease for anti biotic management. Over the last 3-4 days, developing increased work of breathing, persistent cough with colored brown mucus and right-sided chest discomfort with inspiration and coughing. Chest CT angiogram did not show any evidence of pulmonary embolism. There were several stable pulmonary nodules from prior examination with few new right lung peripheral nodular opacities/consolidations from prior. Concerning for infectious process. Stable mediastinal right hilar adenopathy from prior exam. Moderate to advanced emphysematous and pulmonary fibrotic changes were additionally noted. Most recent sputum culture positive for Pseudomonas aeruginosa and acid-fast bacilli. Labs including CBC with a WC count of 10.8, hemoglobin 15.3, platelets 368. CMP is unremarkable, electrolytes WDL, creatinine 0.84, glucose 112. Lactic 1.5. LFTs not elevated. Troponin less than 0.012. NT proBNP 174. Patient currently being evaluated in the ED. He is currently resting comfortably on room air. Has congested cough. Reporting pleuritic-like chest pain as described above. Also cough with brown sputum production. Denies any hemoptysis. Denies any fevers or chills. Denies any weight loss, fatigue, sweats. Current vital signs are stable. The patient is seen today September 28, 2024 in follow-up on the regular medical floor. He is currently sitting up in bed. Awake and alert in no acute d istress. Denies any worsening shortness of breath, cough or congestion. He is maintaining good O2 saturations in the 90s on room air oxygen. Blood culture revealing bacillus species not anthracis. He remains on DuoNeb inhalations, Symbicort, Solu-Medrol. Continued on cefepime. Anticoagulated with Eliquis. No new labs today. The patient is seen today September 29, 2024 in follow-up on the regular medical floor. He is awake and alert in no acute distress. Resting quite comfortably in bed. Denies any worsening shortness of breath, cough or congestion. He remains on DuoNeb inhalations, Symbicort, Solu-Medrol. Remains on antibiotics in the form of cefepime. Continued on anticoagulation with Eliquis. Tessalon Perles for his cough. Blood culture revealed no growth. White count 10.2. H emoglobin 13.2. Platelets 332. Sodium 144. Potassium 4.5. Bicarb 24. BUN 15. Creatinine 0.8. Glucose 109. The patient is seen today September 30, 2024 in follow-up on the regular medical floor. He is currently sitting up in bed. Awake and alert in no acute distress. Denies any worsening shortness of breath, cough or congestion. Continues to maintain good O2 saturations in the mid 90s on room air. He is afebrile. Hemodynamically stable. Blood culture was positive for bacillus species not anthracis. He remains on cefepime. Chest x-ray continues to show multifocal airspace opacities with improvement in the right lung. White count 10.1. Hemoglobin 12.6. Platelets 270. Sodium 143. Potassium 4.4. Bicarb 22. BUN 16. Creatinine 0.8. Glucose 123. He remains on DuoNeb inhalations, Symbicort, Solu-Medrol. Remains on lactated Ringer's at 130 mL/h. Tessalon Perles as needed for his cough. Anticoagulated with Eliquis. The patient is seen today October 01, 2024 in follow-up on the regular medical floor. He is awake and alert in no acute distress. Sitting up in bed. Denies any shortness of breath, cough or congestion. Maintaining good O2 saturations in the 90s on room air oxygen. He is continued on DuoNeb inhalations, Symbicort, prednisone taper. Remains on antibiotics in the form of cefepime. Anticoagulated with Eliquis. White count 12.9. Hemoglobin 12.7. Platelets 287. Sodium 142. Potassium 3.8. Bicarb 26. BUN 17. Creatinine 0.8. Glucose 90. Objective - Vital Signs Vital signs: Vital Signs Temp 98.2 F 10/01/24 07:08 Pulse 72 10/01/24 08:41 Resp 18 10/01/24 07:08 BP 152/83 10/01/24 07:08 Pulse Ox 95 10/01/24 08:30 FiO2 Intake & Output 09/30/24 10/01/24 10/01/24 18:59 06:59 18:59 Intake Total 820 Balance 820 Intake: Intake, IV Titration 100 Amount Cefepime 2 gm In Sodium 100 Chloride 0.9% 100 ml @ 25 mls/hr IVPB Q8H [facility] Rx#: [id number] Oral 720 Other: Voiding Method Toilet # Voids 4 # Bowel Movements 1 - Exam GENERAL EXAM: Alert, pleasant 74-year-old male, sitting up in bed, on room air oxygen, comfortable and in no apparent distress. HEAD: Normocephalic. EYES: Normal reaction of pupils, equal size. NOSE: Clear with pink turbinates. THROAT: No erythema or exudates. NECK: No masses, no JVD. CHEST: No chest wall deformity. LUNGS: Equal air entry with few scattered rhonchi. CVS: S1 and S2 normal with no audible murmur, regular rhythm. ABDOMEN: No hepatosplenomegaly, normal bowel sounds, no guarding or rigidity. SPINE: No scoliosis or deformity SKIN: No rashes CENTRAL NERVOUS SYSTEM: No focal deficits, tone is normal in all 4 extremities. EXTREMITIES: There is no peripheral edema. No clubbing, no cyanosis. P eripheral pulses are intact. - Labs CBC & Chem 7: 10/01/24 05:32 10/01/24 05:32 Labs: Abnormal Lab Results - Last 24 Hours (Table) 10/01/24 10/01/24 Range/Units 05:32 05:32 WBC 12.98 H (4.50-10.00) X 10*3/uL Hgb 12.7 L (13.0-17.0) g/dL MCHC 31.1 L (32.0-37.0) g/dL Immature Gran # 0.29 H (0.00-0.04) X 10*3/uL Neutrophils # 8.81 H (1.80-7.70) X 10*3/uL Monocytes # 1.05 H (0.20-1.00) X 10*3/uL Eosinophils # 0.02 L (0.04-0.35) X 10*3/uL BUN/Creatinine Ratio 21.38 H (12.00-20.00) Ratio Calcium 8.6 L (8.7-10.3) mg/dL Total Bilirubin <0.2 L (0.3-1.2) mg/dL Total Protein 5.5 L (6.2-8.2) g/dL Albumin 3.2 L (3.8-4.9) g/dL Albumin/Globulin Ratio 1.39 L (1.60-3.17) Ratio Assessment and Plan Assessment: Acute COPD exacerbation Bronchoscopy with BAL from 07/06/24 isolating Pseudomonas aeruginosa, Myc obacterium chimera intracellular group and Stacie Nontuberculous mycobacterial infection, patient previously referred to infectious disease for antibiotic management Acute on chronic dyspnea, secondary to above Frequent pulmonary infection/pneumonia, with history of bronchoscopy done 01/13/2024 isolating pseudomonas aeruginosa/Klebsiella oxytoca, as well as, Mycobacterium chimera intracellular group History bilateral pulmonary nodular opacities, with reticular infiltrates, and mediastinal/hilar lymphadenopathy Severe COPD, with a baseline FEV1 32% of predicted Former tobacco dependence, quit in 2005 History of hyperlipidemia Hypertension History of paroxysmal atrial fibrillation, normally anticoagulated on Eliquis History of localized squamous cell skin cancer, 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 Number of minutes spent on the visit: 10 Dictation was produced using [employer] dictation software. Please excuse any grammatical, word or spelling errors.
--- NOTE | 2024-10-01 15:51 | P.PN ---
Subjective Progress Note Date: 10/01/24 Principal diagnosis: Reason for follow-up is Pseudomonas tracheobronchitis/DANIEL infection patient is a 74-year-old male with past medical history significant for severe COPD, frequent pneumonias. He underwent bronchoscopy on 01/13/2024, with findings isolated Pseudomonas aeruginosa and Klebsiella oxytoca, as well as, Mycobacterium chimera intracellular group. Presenting to the hospital increasing shortness of breath and cough has been diagnosed with tracheobronchitis with last sputum culture positive for Pseudomonas and DANIEL. On today's evaluation that is 10/01/2024, Patient is afebrile patient is currently on room air and breathing more comfortably , the patient denies any chest pain or any worsening cough, the patient denies any nausea vomiting did not have any abdominal pain and no diarrhea. Patient white count is 12.98, creatinine 0.8 Objective - Vital Signs Vital signs: Vital Signs Temp 97.8 F 10/01/24 13:27 Pulse 80 10/01/24 13:27 Resp 18 10/01/24 13:27 BP 104/64 10/01/24 13:27 Pulse Ox 95 10/01/24 13:27 FiO2 Intake & Output 09/30/24 10/01/24 10/01/24 18:59 06:59 18:59 Intake Total 820 Balance 820 Intake: Intake, IV Titration 100 Amount Cefepime 2 gm In Sodium 100 Chloride 0.9% 100 ml @ 25 mls/hr IVPB Q8H [facility] Rx#: [id number] Oral 720 Other: Voiding Method Toilet # Voids 4 # Bowel Movements 1 - Exam GENERAL DESCRIPTION: An elderly male lying in bed in no distress RESPIRATORY SYSTEM: Unlabored breathing , decreased breath sounds at bases HEART: S1 S2 regular rate and rhythm , ABDOMEN: Soft , no tenderness EXTREMITIES: No edema feet - Labs CBC & Chem 7: 10/01/24 05:32 10/01/24 05:32 Labs: Abnormal Lab Results - Last 24 Hours (Table) 10/01/24 10/01/24 Range/Units 05:32 05:32 WBC 12.98 H (4.50-10.00) X 10*3/uL Hgb 12.7 L (13.0-17.0) g/dL MCHC 31.1 L (32.0-37.0) g/dL Immature Gran # 0.29 H (0.00-0.04) X 10*3/uL Neutrophils # 8.81 H (1.80-7.70) X 10*3/uL Monocytes # 1.05 H (0.20-1.00) X 10*3/uL Eosinophils # 0.02 L (0.04-0.35) X 10*3/uL BUN/Creatinine Ratio 21.38 H (12.00-20.00) Ratio Calcium 8.6 L (8.7-10.3) mg/dL Total Bilirubin <0.2 L (0.3-1.2) mg/dL Total Protein 5.5 L (6.2-8.2) g/dL Albumin 3.2 L (3.8-4.9) g/dL Albumin/Globulin Ratio 1.39 L (1.60-3.17) Ratio Assessment and Plan (1) COPD (chronic obstructive pulmonary disease) Current Visit: Yes Status: Acute Code(s): J44.9 - CHRONIC OBSTRUCTIVE PULMONARY DISEASE, UNSPECIFIED SNOMED Code(s): 77289051 (2) Pneumonia Current Visit: Yes Status: Acute Code(s): J18.9 - PNEUMONIA, UNSPECIFIED ORGANISM SNOMED Code(s): 689553189 (3) Acute exacerbation of chronic obstructive pulmonary disease Current Visit: No Status: Acute Code(s): J44.1 - CHRONIC OBSTRUCTIVE PULMONARY DISEASE W (ACUTE) EXACERBATION SNOMED Code(s): 554602371 (4) Pulmonary nodules Current Visit: No Status: Acute Code(s): R91.8 - OTHER NONSPECIFIC ABNORMAL FINDING OF LUNG FIELD SNOMED Code(s): 274193613 (5) Mycobacterium avium infection Current Visit: Yes Status: Acute Code(s): A31.0 - PULMONARY MYCOBACTERIAL INFECTION SNOMED Code(s): 869597304 Plan: 1. Patient presented to hospital with increased shortness of breath and productive cough, with brown sputum. CT of the chest without pulmonary embolism, and findings of pulmonary nodules which were present on previous imaging, and findings concerning for new nodules. Likely admitted to hospital because of COPD exacerbation/tracheobronchitis 2positive blood culture with bacillus species and COVID is new staph likely skin contamination 3patient is slowly clinical improvement today is day #6 of cefepime hopefully will complete his cefepime by tomorrow and will not need any IV antibiotics on discharge 4prescription for rifampin and Zithromax ethambutol 3 times a week has been sent to the patient pharmacy yesterday that the patient will start taking on discharge from the hospital Dictation was produced using [employer] dictation software. please excuse any grammatical, word or spelling errors. Time with Patient: Less than 30
[2024-10-02 03:48] VITALS: TEMP 97.8
[2024-10-02 08:19] LABS: Basophils # (A) 0.10 X 10*3/uL (0.00-0.10); Basophils % (A) 0.8 %; Eosinophils # (A) 0.01 X 10*3/uL (0.04-0.35); Eosinophils % (A) 0.1 %; HCT 43.9 % (39.6-50.0); HGB 13.7 g/dL (13.0-17.0); Immature Grans, Automated 3.40 %; Lymphocytes # (A) 1.96 X 10*3/uL (0.90-5.00); Lymphocytes % (A) 15.8 %; MCH 27.8 pg (27.0-32.0); MCHC 31.2 g/dL (32.0-37.0); MCV 89.2 FL (80.0-97.0); Monocytes # (A) 0.75 X 10*3/uL (0.20-1.00); Monocytes % (A) 6.1 %; NRBC Per 100 WBC 0 X 10*3/uL (0.00-0.01); Neutrophils # (A) 9.14 X 10*3/uL (1.80-7.70); Neutrophils % (A) 73.8 %; Platelet Count 272 X 10*3/uL (140-440); RBC 4.92 X 10*6/uL (4.40-5.60); RDW 12.9 % (11.5-14.5); WBC 12.38 X 10*3/uL (4.50-10.00)
[2024-10-02 08:34] LABS: Anion Gap 8.40 mmol/L (4.00-12.00); BUN/Creat Ratio 23.67 Ratio (12.00-20.00); Blood Urea Nitrogen 21.3 mg/dL (9.0-27.0); Carbon Dioxide 28.6 mmol/L (21.6-31.8); Chloride 105 mmol/L (96-109); Glucose 100 mg/dL (70-110); Potassium 4.6 mmol/L (3.5-5.5); Sodium 142 mmol/L (135-145)
[2024-10-02 08:35] LABS: ALT 55 U/L (10-49); AST 30 U/L (14-35); Albumin 3.3 g/dL (3.8-4.9); Albumin/Globulin Ratio 1.43 Ratio (1.60-3.17); Alkaline Phosphatase 71 U/L (41-126); Calcium 8.7 mg/dL (8.7-10.3); Globulin 2.3 g/dL (1.6-3.3); Total Protein 5.6 g/dL (6.2-8.2)
--- NOTE | 2024-10-02 13:38 | P.PN ---
Subjective Progress Note Date: 10/02/24 Patient is a 74-year-old male with past medical history significant for severe COPD with a baseline FEV1 32% of predicted, former tobacco dependence, and frequent pneumonias/pulmonary infections. Recently, worked up for scattered pulmonary nodules and increased interstitial densities bilaterally, which were thought to be infectious in nature. Previous bronchoscopy done 01/13/2024 isolated Pseudomonas aeruginosa and Klebsiella oxytoca, as well as, Mycobacterium chimera intracellular group. Cytology from [place] unremarkable for malignant cells. He has been following with Dr. Ma in the pulmonary office. Previously maintained on a prolonged course of quinolones. More recently, Dr. Ma performed a follow-up bronchoscopy with BAL on 07/06/24, which was positive for Pseudomonas aeruginosa, Mycobacterium chimera intracellular group and Stacie. Was referred to infectious disease for anti biotic management. Over the last 3-4 days, developing increased work of breathing, persistent cough with colored brown mucus and right-sided chest discomfort with inspiration and coughing. Chest CT angiogram did not show any evidence of pulmonary embolism. There were several stable pulmonary nodules from prior examination with few new right lung peripheral nodular opacities/consolidations from prior. Concerning for infectious process. Stable mediastinal right hilar adenopathy from prior exam. Moderate to advanced emphysematous and pulmonary fibrotic changes were additionally noted. Most recent sputum culture positive for Pseudomonas aeruginosa and acid-fast bacilli. Labs including CBC with a WC count of 10.8, hemoglobin 15.3, platelets 368. CMP is unremarkable, electrolytes WDL, creatinine 0.84, glucose 112. Lactic 1.5. LFTs not elevated. Troponin less than 0.012. NT proBNP 174. Patient currently being evaluated in the ED. He is currently resting comfortably on room air. Has congested cough. Reporting pleuritic-like chest pain as described above. Also cough with brown sputum production. Denies any hemoptysis. Denies any fevers or chills. Denies any weight loss, fatigue, sweats. Current vital signs are stable. The patient is seen today September 28, 2024 in follow-up on the regular medical floor. He is currently sitting up in bed. Awake and alert in no acute d istress. Denies any worsening shortness of breath, cough or congestion. He is maintaining good O2 saturations in the 90s on room air oxygen. Blood culture revealing bacillus species not anthracis. He remains on DuoNeb inhalations, Symbicort, Solu-Medrol. Continued on cefepime. Anticoagulated with Eliquis. No new labs today. The patient is seen today September 29, 2024 in follow-up on the regular medical floor. He is awake and alert in no acute distress. Resting quite comfortably in bed. Denies any worsening shortness of breath, cough or congestion. He remains on DuoNeb inhalations, Symbicort, Solu-Medrol. Remains on antibiotics in the form of cefepime. Continued on anticoagulation with Eliquis. Tessalon Perles for his cough. Blood culture revealed no growth. White count 10.2. H emoglobin 13.2. Platelets 332. Sodium 144. Potassium 4.5. Bicarb 24. BUN 15. Creatinine 0.8. Glucose 109. The patient is seen today September 30, 2024 in follow-up on the regular medical floor. He is currently sitting up in bed. Awake and alert in no acute distress. Denies any worsening shortness of breath, cough or congestion. Continues to maintain good O2 saturations in the mid 90s on room air. He is afebrile. Hemodynamically stable. Blood culture was positive for bacillus species not anthracis. He remains on cefepime. Chest x-ray continues to show multifocal airspace opacities with improvement in the right lung. White count 10.1. Hemoglobin 12.6. Platelets 270. Sodium 143. Potassium 4.4. Bicarb 22. BUN 16. Creatinine 0.8. Glucose 123. He remains on DuoNeb inhalations, Symbicort, Solu-Medrol. Remains on lactated Ringer's at 130 mL/h. Tessalon Perles as needed for his cough. Anticoagulated with Eliquis. The patient is seen today October 01, 2024 in follow-up on the regular medical floor. He is awake and alert in no acute distress. Sitting up in bed. Denies any shortness of breath, cough or congestion. Maintaining good O2 saturations in the 90s on room air oxygen. He is continued on DuoNeb inhalations, Symbicort, prednisone taper. Remains on antibiotics in the form of cefepime. Anticoagulated with Eliquis. White count 12.9. Hemoglobin 12.7. Platelets 287. Sodium 142. Potassium 3.8. Bicarb 26. BUN 17. Creatinine 0.8. Glucose 90. Patient is seen today October 02, 2024 in follow-up on the regular medical floor. He is awake and alert in no acute distress. Currently sitting up in bed. Maintaining good O2 saturations in the 90s on room air oxygen. He is continues with a loose congested cough. No fever or chills. No hemoptysis. White count 12.3. Hemoglobin 13.7. Platelets 272. Sodium 142. Potassium 4.6. Bicarb 27. BUN 21. Creatinine 0.9. Glucose 100. He remains on cefepime per ID service. Continued on DuoNeb inhalations, Symbicort, prednisone taper. Anticoagulated with Eliquis. Objective - Vital Signs Vital signs: Vital Signs Temp 97.8 F 10/02/24 07:57 Pulse 76 10/02/24 13:15 Resp 16 10/02/24 07:57 BP 131/71 10/02/24 07:57 Pulse Ox 94 L 10/02/24 07:57 FiO2 Intake & Output 10/01/24 10/02/24 10/02/24 18:59 06:59 18:59 Intake Total 940 Balance 940 Intake: Intake, IV Titration 100 Amount Cefepime 2 gm In Sodium 100 Chloride 0.9% 100 ml @ 25 mls/hr IVPB Q8H [facility] Rx#: [id number] Oral 840 Other: Voiding Method Toilet # Voids 4 3 # Bowel Movements 1 - Exam GENERAL EXAM: Alert, pleasant 74-year-old male, on room air oxygen, in no apparent distress. HEAD: Normocephalic. EYES: Normal reaction of pupils, equal size. NOSE: Clear with pink turbinates. THROAT: No erythema or exudates. NECK: No masses, no JVD. CHEST: No chest wall deformity. LUNGS: Equal air entry with few scattered rhonchi. CVS: S1 and S2 normal with no audible murmur, regular rhythm. ABDOMEN: No hepatosplenomegaly, normal bowel sounds, no guarding or rigidity. SPINE: No scoliosis or deformity SKIN: No rashes CENTRAL NERVOUS SYSTEM: No focal deficits, tone is normal in all 4 extremities. EXTREMITIES: There is no peripheral edema. No clubbing, no cyanosis. Peripheral pulses are intact. - Labs CBC & Chem 7: 10/02/24 02:36 10/02/24 02:36 Labs: Abnormal Lab Results - Last 24 Hours (Table) 10/02/24 10/02/24 Range/Units 02:36 02:36 WBC 12.38 H (4.50-10.00) X 10*3/uL MCHC 31.2 L (32.0-37.0) g/dL Immature Gran # 0.42 H (0.00-0.04) X 10*3/uL Neutrophils # 9.14 H (1.80-7.70) X 10*3/uL Eosinophils # 0.01 L (0.04-0.35) X 10*3/uL BUN/Creatinine Ratio 23.67 H (12.00-20.00) Ratio Total Bilirubin 0.2 L (0.3-1.2) mg/dL ALT 55 H (10-49) U/L Total Protein 5.6 L (6.2-8.2) g/dL Albumin 3.3 L (3.8-4.9) g/dL Albumin/Globulin Ratio 1.43 L (1.60-3.17) Ratio Assessment and Plan Assessment: Acute COPD exacerbation Bronchoscopy with BAL from 07/06/24 isolating Pseudomonas aeruginosa, Mycobacterium chimera intracellular group and Stacie. 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 to infectious disease for antibiotic management Acute on chronic dyspnea, secondary to above Frequent pulmonary infection/pneumonia, with history of bronchoscopy done 01/13/2024 isolating pseudomonas aeruginosa/Klebsiella oxytoca, as well as, Mycobacterium chimera intracellular group History bilateral pulmonary nodular opacities, with reticular infiltrates, and mediastinal/hilar lymphadenopathy Severe COPD, with a baseline FEV1 32% of predicted Former tobacco dependence, quit in 2005 History of hyperlipidemia Hypertension History of paroxysmal atrial fibrillation, normally anticoagulated on Eliquis History of localized squamous cell skin cancer, 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 Thomas in our office in 1 week I have personally seen and examined the patient, performed the documentation and the assessment and plan as written. Number of minutes spent on the visit: 10 Dictation was produced using [employer] dictation software. Please excuse any grammatical, word or spelling errors.
[2024-10-02 16:11] VITALS: BP 105/65; RESP 17
[2024-10-02 16:39] VITALS: PULSE 72
--- NOTE | 2024-10-02 16:59 | P.DS ---
Providers Date of admission: 09/28/24 08:14 Expected date of discharge: 10/02/24 Attending physician: Sara London Consults: 09/26/24 20:51 Consult Physician Routine Consulting Provider: Balbina Thomas Consult Reason/Comments: copd, pneumonia Do you want consulting provider notified?: Yes Consult Physician Routine Consulting Provider: Beverly Chandra Consult Reason/Comments: pneumonia Do you want consulting provider notified?: Yes Primary care physician: Maryann Randolph Hospital Course: Diagnosis on discharge: Increased shortness of breath secondary to pneumonia and acute on chronic CHF exacerbation A-fib with RVR Acute hypoxic respiratory failure maintained on BiPAP Multilobular pneumonia Acute on chronic systolic heart failure Elevated troponins History of paroxysmal atrial fibrillation History of coronary artery disease with previous stenting History of essential hypertension History of hyperlipidemia History of chronic tobacco use Acute on chronic kidney disease Hospital course: Mika Bynum, is a 69-year-old male presented to [facility] emergency room chief complaint of worsening shortness of breath and cough. He was evaluated in the emergency room vital examination on presentation revealed temp 98.1 weight, respiratory rate 42, blood pressure 90/55 with a pulse ox of 94% on BiPAP Laboratory data reveals white blood cell 15.25, hemoglobin 13.9, D-dimer 2.02, sodium 129, creatinine 1.34, lactic acid 2.7, troponin 0.150, 0.419 and BNP 13,800 Testing in the emergency room revealed chest CTA showing airspace consolidation in the left upper and bilateral lower lobes consistent with multilobar pneumonia moderate bilateral parapneumonic effusions Patient was admitted to medical floor for further evaluation and treatment. Patient started on heparin drip cardiology and pulmonary services consulted.. Patient started on IV Lasix Past medical history is significant for A-fib with RVR, recent admission and treatment of pneumonia, chronic systolic congestive heart failure, CAD, ischemic cardiomyopathy, history of noncompliance, essential hypertension, hyperlipidemia and nicotine dependence On review of systems patient is alert and oriented x 3. Patient having some shortness of breath. Patient denies chest pain. Patient denies nausea vomiting or diarrhea. Patient denies any urinary burning or frequency On 09/29/2024 patient is alert and oriented x 3. Patient remains on IV Lasix, IV Solu-MedrolAnd IV antibiotics pulmonary and cardiology services are following. 2D echo has been ordered. Current vital signs temp 97.8, heart rate 112, respiratory rate 19, blood pressure 95/60 with pulse ox of 94% on 4 L patient denies chest pain. Patient denies nausea vomiting or diarrhea. Patient denies any urinary burning or frequency On 09/30/2024 patient is alert and oriented x 3. 2D echo was completed showing an EF of 10 to 15%. Patient remains on IV Rocephin IV Lasix and IV steroids. Patient also started on IV amiodarone per cardiology. Current vital signs temp 97.9, heart rate 136, respiratory rate 18, blood pressure 92/64 with pulse ox 100% on 4 L. 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 Patient denies chest pain or shortness of breath. Patient denies nausea vomiting or diarrhea. Patient denies any urinary burning or frequency On 10/01/2024 patient is alert and oriented x 3. Patient is resting comfortably in bed at this time. Patient remains on IV Solu-Medrol and IV Rocephin patient has been transitioned to p.o. amiodarone. Patient denies chest pain or shortness of breath. Patient denies nausea vomiting or diarrhea. Patient denies any urinary burning or frequency. Creatinine increasing to 1.97 bun 48 sodium 128 will consult nephrology services at this time. Current vital signs temp 97.5, heart rate 111, respiratory rate 18, blood pressure 92/64 with pulse ox 100% on 2 L 10/02/2024 patient was seen and examined on the medical floor he is alert and oriented x 3 in no apparent distress there is no fever or chills no headache or dizziness no chest pain no shortness of breath no cough no nausea or vomiting no abdominal pain no diarrhea and no urinary symptoms. Was evaluated by infectious disease and was cleared for discharge he will be on Zithromax, ethambutol, and rifampin 3 times weekly. Follow-up with infectious disease to his primary care physician Dr. Randolph 1 to 2-week Patient Condition at Discharge: Stable Plan - Discharge Summary New Discharge Prescriptions: New predniSONE 10 mg PO DAILY 12 Days #30 tab Benzonatate [Tessalon Perles] 100 mg PO TID PRN 10 Days #30 cap PRN Reason: Cough Continue Simvastatin [Zocor] 20 mg PO HS Latanoprost/Pf [Latanoprost 0.005% Eye Drop] 1 drop BOTH EYES HS Dorzolamide-Timol 2.23%/0.68% [Cosopt] 1 drop BOTH EYES BID Fluticasone Propion/Salmeterol [Advair 500-50 Diskus] 1 puff INHALATION RT- BID Brimonidine Tartrate [Alphagan P 0.2% Ophth Soln] 1 drop BOTH EYES TID Metoprolol Succinate (ER) [Toprol XL] 25 mg PO DAILY Apixaban [Eliquis] 5 mg PO BID Famotidine [Pepcid] 20 mg PO HS PRN PRN Reason: Heartburn Discontinued Omeprazole 20 mg PO W/LUNCH Discharge Medication List Latanoprost/Pf [Latanoprost 0.005% Eye Drop] 1 drop BOTH EYES HS 11/15/18 [History] Simvastatin [Zocor] 20 mg PO HS 11/15/18 [History] Brimonidine Tartrate [Alphagan P 0.2% Ophth Soln] 1 drop BOTH EYES TID 11/17/22 [History] Dorzolamide-Timol 2.23%/0.68% [Cosopt] 1 drop BOTH EYES BID 11/17/22 [History] Apixaban [Eliquis] 5 mg PO BID 01/10/24 [History] Metoprolol Succinate (ER) [Toprol XL] 25 mg PO DAILY 01/10/24 [History] Fluticasone Propion/Salmeterol [Advair 500-50 Diskus] 1 puff INHALATION RT-BID 07/09/24 [History] Famotidine [Pepcid] 20 mg PO HS PRN 09/26/24 [History] Benzonatate [Tessalon Perles] 100 mg PO TID PRN 10 Days #30 cap 10/02/24 [Rx] predniSONE 10 mg PO DAILY 12 Days #30 tab 10/02/24 [Rx] Follow up Appointment(s)/Referral(s): Maryann Randolph MD [Primary Care Provider] - 1-2 days
--- NOTE | 2024-10-02 18:09 | P.PN ---
Subjective Progress Note Date: 10/02/24 Reason for follow-up is Pseudomonas tracheobronchitis/DANIEL infection patient is a 74-year-old male with past medical history significant for severe COPD, frequent pneumonias. He underwent bronchoscopy on 01/13/2024, with findings isolated Pseudomonas aeruginosa and Klebsiella oxytoca, as well as, Mycobacterium chimera intracellular group. Presenting to the hospital increasing shortness of breath and cough has been diagnosed with tracheobronchitis with last sputum culture positive for Pseudomonas and DANIEL. On today's evaluation that is 10/02/2024, Patient is afebrile patient is currently on room air and breathing more comfortably , the patient denies any chest pain or any worsening cough, the patient denies any nausea vomiting did not have any abdominal pain and no diarrhea. Patient white count is 12.38, creatinine 0.9 Objective - Vital Signs Vital signs: Vital Signs Temp 97.8 F 10/02/24 07:57 Pulse 68 10/02/24 10:10 Resp 16 10/02/24 07:57 BP 131/71 10/02/24 07:57 Pulse Ox 94 L 10/02/24 07:57 FiO2 Intake & Output 10/01/24 10/02/24 10/02/24 18:59 06:59 18:59 Intake Total 940 Balance 940 Intake: Intake, IV Titration 100 Amount Cefepime 2 gm In Sodium 100 Chloride 0.9% 100 ml @ 25 mls/hr IVPB Q8H [facility] Rx#: [id number] Oral 840 Other: Voiding Method Toilet # Voids 4 # Bowel Movements 1 - Exam GENERAL DESCRIPTION: An elderly male lying in bed in no distress RESPIRATORY SYSTEM: Unlabored breathing , decreased breath sounds at bases HEART: S1 S2 regular rate and rhythm , ABDOMEN: Soft , no tenderness EXTREMITIES: No edema feet - Labs CBC & Chem 7: 10/02/24 02:36 10/02/24 02:36 Labs: Abnormal Lab Results - Last 24 Hours (Table) 10/02/24 10/02/24 Range/Units 02:36 02:36 WBC 12.38 H (4.50-10.00) X 10*3/uL MCHC 31.2 L (32.0-37.0) g/dL Immature Gran # 0.42 H (0.00-0.04) X 10*3/uL Neutrophils # 9.14 H (1.80-7.70) X 10*3/uL Eosinophils # 0.01 L (0.04-0.35) X 10*3/uL BUN/Creatinine Ratio 23.67 H (12.00-20.00) Ratio Total Bilirubin 0.2 L (0.3-1.2) mg/dL ALT 55 H (10-49) U/L Total Protein 5.6 L (6.2-8.2) g/dL Albumin 3.3 L (3.8-4.9) g/dL Albumin/Globulin Ratio 1.43 L (1.60-3.17) Ratio Assessment and Plan (1) COPD (chronic obstructive pulmonary disease) Status: Acute Code(s): J44.9 - CHRONIC OBSTRUCTIVE PULMONARY DISEASE, UNSPECIF IED SNOMED Code(s): 33343452 (2) Pneumonia Status: Acute Code(s): J18.9 - PNEUMONIA, UNSPECIFIED ORGANISM SNOMED Code(s): 475610712 (3) Acute exacerbation of chronic obstructive pulmonary disease Status: Acute Code(s): J44.1 - CHRONIC OBSTRUCTIVE PULMONARY DISEASE W (ACUTE) EXACERBATION SNOMED Code(s): 128756452 (4) Pulmonary nodules Status: Acute Code(s): R91.8 - OTHER NONSPECIFIC ABNORMAL FINDING OF LUNG FIELD SNOMED Code(s): 178432295 (5) Mycobacterium avium infection Status: Acute Code(s): A31.0 - PULMONARY MYCOBACTERIAL INFECTION SNOMED Code(s): 553910529 Plan: 1. Patient presented to hospital with increased shortness of breath and productive cough, with brown sputum. CT of the chest without pulmonary embolism, and findings of pulmonary nodules which were present on previous imaging, and findings concerning for new nodules. Likely admitted to hospital because of COPD exacerbation/tracheobronchitis 2positive blood culture with bacillus species and COVID is new staph likely skin contamination 3patient is slowly clinical improvement today is day #7 of cefepime and has completed his course, no need for IV antibiotics on discharge 4prescription for rifampin and Zithromax ethambutol 3 times a week has been sent to the patient pharmacy yesterday that the patient will start taking on discharge from the hospital Micheal Mejia MD Internal Medicine Resident, PGY2 Infectious disease service Dictation was produced using [employer] dictation software. please excuse any grammatical, word or spelling errors.
--- NOTE | 2024-10-06 14:47 | P.PN ---
Subjective Progress Note Date: 10/02/24 Principal diagnosis: Reason for follow-up is Pseudomonas tracheobronchitis/DANIEL infection patient is a 74-year-old male with past medical history significant for severe COPD, frequent pneumonias. He underwent bronchoscopy on 01/13/2024, with findings isolated Pseudomonas aeruginosa and Klebsiella oxytoca, as well as, Mycobacterium chimera intracellular group. Presenting to the hospital increasing shortness of breath and cough has been diagnosed with tracheobronchitis with last sputum culture positive for Pseudomonas and DANIEL. On today's evaluation that is 10/02/2024, patient has been afebrile, patient is breathing comfortably and is currently on room air, patient denies having any chest pain and cough has decreased in intensity mostly dry in nature, patient denies nausea vomiting or diarrhea and no abdominal pain. Patient white count is 12.38, creatinine 0.9 Objective - Vital Signs Vital signs: Vital Signs Temp 97.8 F 10/02/24 07:57 Pulse 68 10/02/24 10:10 Resp 16 10/02/24 07:57 BP 131/71 10/02/24 07:57 Pulse Ox 94 L 10/02/24 07:57 FiO2 Intake & Output 10/01/24 10/02/24 10/02/24 18:59 06:59 18:59 Intake Total 940 Balance 940 Intake: Intake, IV Titration 100 Amount Cefepime 2 gm In Sodium 100 Chloride 0.9% 100 ml @ 25 mls/hr IVPB Q8H [facility] Rx#: [id number] Oral 840 Other: Voiding Method Toilet # Voids 4 3 # Bowel Movements 1 - Exam GENERAL DESCRIPTION: An elderly male lying in bed in no distress RESPIRATORY SYSTEM: Unlabored breathing , decreased breath sounds at bases HEART: S1 S2 regular rate and rhythm , ABDOMEN: Soft , no tenderness EXTREMITIES: No edema feet - Labs CBC & Chem 7: 10/02/24 02:36 10/02/24 02:36 Labs: Abnormal Lab Results - Last 24 Hours (Table) 10/02/24 10/02/24 Range/Units 02:36 02:36 WBC 12.38 H (4.50-10.00) X 10*3/uL MCHC 31.2 L (32.0-37.0) g/dL Immature Gran # 0.42 H (0.00-0.04) X 10*3/uL Neutrophils # 9.14 H (1.80-7.70) X 10*3/uL Eosinophils # 0.01 L (0.04-0.35) X 10*3/uL BUN/Creatinine Ratio 23.67 H (12.00-20.00) Ratio Total Bilirubin 0.2 L (0.3-1.2) mg/dL ALT 55 H (10-49) U/L Total Protein 5.6 L (6.2-8.2) g/dL Albumin 3.3 L (3.8-4.9) g/dL Albumin/Globulin Ratio 1.43 L (1.60-3.17) Ratio Assessment and Plan (1) COPD (chronic obstructive pulmonary disease) Status: Acute Code(s): J44.9 - CHRONIC OBSTRUCTIVE PULMONARY DISEASE, UNSPECIFIED SNOMED Code(s): 08814713 (2) Pneumonia Status: Acute Code(s): J18.9 - PNEUMONIA, UNSPECIFIED ORGANISM SNOMED Code(s): 596526047 (3) Acute exacerbation of chronic obstructive pulmonary disease Status: Acute Code(s): J44.1 - CHRONIC OBSTRUCTIVE PULMONARY DISEASE W (ACUTE) EXACERBATION SNOMED Code(s): 890609818 (4) Pulmonary nodules Status: Acute Code(s): R91.8 - OTHER NONSPECIFIC ABNORMAL FINDING OF LUNG FIELD SNOMED Code(s): 719420460 (5) Mycobacterium avium infection Status: Acute Code(s): A31.0 - PULMONARY MYCOBACTERIAL INFECTION SNOMED Code(s): 329629325 Plan: 1. Patient presented to hospital with increased shortness of breath and productive cough, with brown sputum. CT of the chest without pulmonary embolism, and findings of pulmonary nodules which were present on previous imaging, and findings concerning for new nodules. Likely admitted to hospital because of COPD exacerbation/tracheobronchitis 2positive blood culture with bacillus species and COVID is new staph likely skin contamination 3patient is slowly clinical improvement today is day #7 of cefepime, and there is no need any IV antibiotics on discharge 4prescription for rifampin and Zithromax ethambutol 3 times a week has been sent to the patient pharmacy which the patient will start taking on discharge from the hospital and will follow-up in the office in about a month multiple question answered Dictation was produced using [employer] software. please excuse any grammatical, word or spelling errors. Time with Patient: Less than 30
== END 2024-10-02 17:25 | disposition home or self-care (01) | DRG 190 ==
LOC: EC 14:53 → 5NMEDONC 20:50 → 4SSUR 22:30 → OBSVTOIN 09-28 08:14
PROVIDERS: ADMIT Internal Medicine; ATTEND Internal Medicine
DX: J44.0 Chronic obstructive pulmonary disease with (acute) lower respiratory infection (principal); I50.23 Acute on chronic systolic (congestive) heart failure; J15.8 Pneumonia due to other specified bacteria; J96.01 Acute respiratory failure with hypoxia; A31.0 Pulmonary mycobacterial infection; I13.0 Hypertensive heart and chronic kidney disease with heart failure and stage 1 through stage 4 chronic kidney disease, or unspecified chronic kidney disease; J44.1 Chronic obstructive pulmonary disease with (acute) exacerbation; N18.9 Chronic kidney disease, unspecified; I48.0 Paroxysmal atrial fibrillation; I25.5 Ischemic cardiomyopathy; Z79.01 Long term (current) use of anticoagulants; E78.5 Hyperlipidemia, unspecified; Z87.891 Personal history of nicotine dependence; H91.90 Unspecified hearing loss, unspecified ear; I25.10 Atherosclerotic heart disease of native coronary artery without angina pectoris; Z85.118 Personal history of other malignant neoplasm of bronchus and lung; Z95.5 Presence of coronary angioplasty implant and graft; Z97.4 Presence of external hearing-aid; Z85.828 Personal history of other malignant neoplasm of skin; Z91.199 Patient's noncompliance with other medical treatment and regimen due to unspecified reason
CPT/HCPCS: 36415; 71045; 71046; 71275; 80053; 83605; 83880; 84484; 85025; 85610; 85730; 87040; 93005; 94640; 94760; 96361; 96374; 99285